=== PATIENT | female | born 1935 | race Caucasian/White ===

== ENCOUNTER → 2016-11-05 | Outpatient (CLI) | payer MEDICARE, OTHER ==
--- NOTE | 2016-11-06 09:47 | MM ---
Reason for exam: screening (asymptomatic). Last mammogram was performed 1 year ago. History: Patient is postmenopausal and history of other cancer. Family history of breast cancer in maternal cousin and premenopausal breast cancer in daughter. 2 benign excisional biopsies of the right breast. Took estrogen for 5 years. Took progesterone for 5 years. Physical Findings: A clinical breast exam by your physician is recommended on an annual basis and results should be correlated with mammographic findings. MG 3D Screening Mammo W/Cad Bilateral CC and MLO view(s) were taken. Prior study comparison: November 02, 2015, bilateral MG 3d screening mammo w/cad. October 27, 2014, bilateral MG screening mammo w CAD. The breast tissue is heterogeneously dense. This may lower the sensitivity of mammography. No significant changes when compared with prior studies. ASSESSMENT: Benign, BI-RAD 2 RECOMMENDATION: Routine screening mammogram of both breasts in 1 year.
== END | disposition home or self-care (01) ==
LOC: RADMAMWWP 09:33
PROVIDERS: ATTEND Internal Medicine
DX: Z12.31 Encounter for screening mammogram for malignant neoplasm of breast (principal)
CPT/HCPCS: 77063; G0202

== ENCOUNTER → 2017-09-18 | Outpatient (CLI) | payer MEDICARE, OTHER ==
[2017-09-18 13:34] LABS: Anion Gap 12 mmol/L; Blood Urea Nitrogen 19 mg/dL (7-17); Calcium 10.4 mg/dL (8.4-10.2); Carbon Dioxide 29 mmol/L (22-30); Chloride 103 mmol/L (98-107); Glucose 93 mg/dL (74-99); Potassium 4.9 mmol/L (3.5-5.1); Sodium 144 mmol/L (137-145)
[2017-09-18 13:48] LABS: T4, Free (Free Thyroxine) 0.92 ng/dL (0.78-2.19)
== END | disposition home or self-care (01) ==
LOC: LABWHC1 12:34
PROVIDERS: ATTEND Internal Medicine Interventional Cardiology
DX: E03.9 Hypothyroidism, unspecified (principal); R00.1 Bradycardia, unspecified
CPT/HCPCS: 36415; 80048; 83735; 84439; 84443

== ENCOUNTER → 2017-11-18 | Outpatient (CLI) | payer MEDICARE, OTHER ==
--- NOTE | 2017-11-19 14:24 | MM ---
Reason for exam: screening (asymptomatic). Last mammogram was performed 1 year ago. History: Patient is postmenopausal and history of other cancer. Family history of breast cancer in maternal cousin and premenopausal breast cancer in daughter. 2 benign excisional biopsies of the right breast. Took estrogen for 5 years. Took progesterone for 5 years. Physical Findings: A clinical breast exam by your physician is recommended on an annual basis and results should be correlated with mammographic findings. MG 3D Screening Mammo W/Cad Bilateral CC and MLO view(s) were taken. Prior study comparison: November 05, 2016, bilateral MG 3d screening mammo w/cad. November 02, 2015, bilateral MG 3d screening mammo w/cad. The breast tissue is heterogeneously dense. This may lower the sensitivity of mammography. Finding: There are typically benign calcifications in both breasts. No suspicious abnormality. No significant changes in finding since November 05, 2016 and November 02, 2015. ASSESSMENT: Benign, BI-RAD 2 RECOMMENDATION: Routine screening mammogram of both breasts in 1 year.
== END | disposition home or self-care (01) ==
LOC: RADMAMWWP 13:29
PROVIDERS: ATTEND Internal Medicine
DX: Z12.31 Encounter for screening mammogram for malignant neoplasm of breast (principal)
CPT/HCPCS: 77063; 77067

== ENCOUNTER → 2018-12-29 | Outpatient (CLI) | payer MEDICARE, OTHER ==
--- NOTE | 2018-12-29 16:43 | XR ---
EXAMINATION TYPE: XR chest 2V DATE OF EXAM: 12/29/2018 COMPARISON: Prior chest x-ray 08/06/2013 HISTORY: COPD, shortness of breath TECHNIQUE: Frontal and lateral views of the chest are obtained. FINDINGS: Bibasilar increased density is present with blunting of the costophrenic angles. There is no pneumothorax. Heart size is likely stable. The aorta is dense. Interstitium is increased. There ar e prominent lung volumes with increased AP diameter chest and retrosternal airspace. Prominence of th e pulmonary artery could be indicative of pulmonary artery hypertension. Probable osteoporotic compre ssion fracture noted in the upper lumbar spine. IMPRESSION: COPD, there may be basilar atelectasis or scarring, difficult to exclude small effusion
== END | disposition home or self-care (01) ==
LOC: CPPFTMAIN 13:56
PROVIDERS: ATTEND Internal Medicine
DX: J44.9 Chronic obstructive pulmonary disease, unspecified (principal)
CPT/HCPCS: 71046; 94060; 94726; 94729

== ENCOUNTER 2019-01-21 12:00 | Inpatient (IN) | payer MEDICARE, OTHER ==
[2019-01-21] MEDS ORDERED: ALBUTEROL NEBULIZED 2.5 MG/3 ML INHALATION STA (12:47)
[2019-01-21] MEDS ORDERED: methylPREDNISolone SOD SUCCI 125 MG/2 ML VIAL IV STA (12:47)
[2019-01-21] MEDS ORDERED: IPRATROPIUM 0.5 MG/2.5 ML NEBU INHALATION STA (12:47)
--- NOTE | 2019-01-21 12:53 | ED ---
General Adult HPI - General Chief complaint: Shortness of Breath Stated complaint: COPD Time Seen by Provider: 01/21/19 12:15 Source: patient, RN notes reviewed Mode of arrival: wheelchair Limitations: no limitations - History of Present Illness Initial comments: This is a 83-year-old female presents emergency Department complaining of difficulty breathing. Patient states it up again in June and more recently she was diagnosed as COPD and placed on an inhaler. Patient states the inhaler hasn't helped and today she was so short of breath eating sitting still she was short of breath. Patient denies any chest pain. Patient denies any cough. P atient denies any recent fever chills. Patient denies any lightheadedness dizziness or near syncopal episode. Patient denies any abdominal pain. Patient denies any palpitations. Patient denies any leg swelling or calf tenderness - Related Data Home Medications Medication Instructions Recorded Confirmed Aspirin 162 mg PO DAILY 11/05/13 01/21/19 Losartan [Cozaar] 50 mg PO DAILY 11/05/13 01/21/19 Multivitamins, Thera [Multivitamin 1 tab PO DAILY 01/21/19 01/21/19 (formulary)] Umeclidinium Brm/Vilanterol Tr 1 puff INHALATION RT-DAILY 01/21/19 01/21/19 [Anoro Ellipta 62.5-25 Mcg INH] Allergies Allergy/AdvReac Type Severity Reaction Status Date / Time No Known Allergies Allergy Verified 01/21/19 13:17 Review of Systems ROS Statement: Those systems with pertinent positive or pertinent negative responses have been documented in the HPI. ROS Other: All systems not noted in ROS Statement are negative. Past Medical History Past Medical History: COPD, Hypertension, Osteoarthritis (OA) Additional Past Medical History / Comment(s): emphysema; irreg heart rate History of Any Multi-Drug Resistant Organisms: None Reported Past Surgical History: Appendectomy, Heart Catheterization, Tonsillectomy, Tubal Ligation Additional Past Surgical History / Comment(s): rt breast lumpectomy Past Anesthesia/Blood Transfusion Reactions: No Reported Reaction Past Psychological History: Anxiety Smoking Status: Former smoker - Past Family History Sister(s) Family Medical History: Cancer General Exam - General Exam Comments Initial Comments: GENERAL: Patient is well-developed and well-nourished. Patient is nontoxic and well- hydrated and is in mild distress. ENT: Neck is soft and supple. No significant lymphadenopathy is noted. Oropharynx is clear. Moist mucous membranes. Neck has full range of motion without eliciting any pain. EYES: The sclera were anicteric and conjunctiva were pink and moist. Extraocular movements were intact and pupils were equal round and reactive to light. Eyelids were unremarkable. PULMONARY: Diminished breath sounds throughout. CARDIOVASCULAR: Patient has an irregular rate and rhythm ABDOMEN: Soft and nontender with normal bowel sounds. SKIN: Skin is clear with no lesions or rashes and otherwise unremarkable. NEUROLOGIC: Patient is alert and oriented x3. Cranial nerves II through XII are grossly intact. Motor and sensory are also intact. Normal speech, volume and content. Symmetrical smile. MUSCULOSKELETAL: Normal extremities with adequate strength and full range of motion. No lower extremity swelling or edema. No calf tenderness. LYMPHATICS: No significant lymphadenopathy is noted PSYCHIATRIC: Normal psychiatric evaluation. Limitations: no limitations Course Vital Signs 01/21/19 01/21/19 01/21/19 12:17 13:00 13:14 Temperature 98.0 F Pulse Rate 42 L 49 L 43 L Respiratory 20 Rate Blood Pressure 177/70 O2 Sat by Pulse 90 L Oximetry 01/21/19 13:22 Temperature Pulse Rate 51 L Respiratory Rate Blood Pressure O2 Sat by Pulse Oximetry Medical Decision Making - Medical Decision Making EKG shows sinus rhythm with occasional PVC at 89 bpm NM interval is 166 QRS is 82 QT interval is 412 QTC is 501. Patient's EKG shows no ST segment elevation or depression. Chest x-ray shows Computed tomography scan of the chest showed no pulmonary embolism it did show increased pleural effusions bilaterally. I gave the patient 3 breathing treatments it didn't improve her breathing but she still states she is not at her baseline. Spoke with Dr. Brian he agreed to admit the patient admitted the patient I wrote admitting orders. - Lab Data Result diagrams: 01/21/19 13:25 01/21/19 13:25 Lab Results 01/21/19 01/21/19 01/21/19 Range/Units 13:25 13:25 13:25 WBC 9.5 (3.8-10.6) k/uL RBC 4.84 (3.80-5.40) m/uL Hgb 15.3 (11.4-16.0) gm/dL Hct 47.3 H (34.0-46.0) % MCV 97.7 (80.0-100.0) fL MCH 31.5 (25.0-35.0) pg MCHC 32.3 (31.0-37.0) g/dL RDW 13.0 (11.5-15.5) % Plt Count 232 (150-450) k/uL Neutrophils % 72 % Lymphocytes % 21 % Monocytes % 5 % Eosinophils % 1 % Basophils % 0 % Neutrophils # 6.8 (1.3-7.7) k/uL Lymphocytes # 2.0 (1.0-4.8) k/uL Monocytes # 0.5 (0-1.0) k/uL Eosinophils # 0.1 (0-0.7) k/uL Basophils # 0.0 (0-0.2) k/uL PT 10.8 (9.0-12.0) sec INR 1.0 (<1.2) APTT 22.2 (22.0-30.0) sec D-Dimer 1.25 H (<0.60) mg/L FEU Sodium 138 (137-145) mmol/L Potassium 4.6 (3.5-5.1) mmol/L Chloride 105 (98-107) mmol/L Carbon Dioxide 23 (22-30) mmol/L Anion Gap 10 mmol/L BUN 21 H (7-17) mg/dL Creatinine 0.68 (0.52-1.04) mg/dL Est GFR (CKD-EPI)AfAm >90 (>60 ml/min/1.73 sqM) Est GFR (CKD-EPI)NonAf 81 (>60 ml/min/1.73 sqM) Glucose 104 H (74-99) mg/dL Calcium 9.7 (8.4-10.2) mg/dL Magnesium 1.9 (1.6-2.3) mg/dL Total Bilirubin 0.7 (0.2-1.3) mg/dL AST 55 H (14-36) U/L ALT 47 (9-52) U/L Alkaline Phosphatase 64 (38-126) U/L Troponin I (0.000-0.034) ng/mL NT-Pro-B Natriuret Pep pg/mL Total Protein 6.2 L (6.3-8.2) g/dL Albumin 4.1 (3.5-5.0) g/dL 01/21/19 01/21/19 Range/Units 13:25 13:28 WBC (3.8-10.6) k/uL RBC (3.80-5.40) m/uL Hgb (11.4-16.0) gm/dL Hct (34.0-46.0) % MCV (80.0-100.0) fL MCH (25.0-35.0) pg MCHC (31.0-37.0) g/dL RDW (11.5-15.5) % Plt Count (150-450) k/uL Neutrophils % % Lymphocytes % % Monocytes % % Eosinophils % % Basophils % % Neutrophils # (1.3-7.7) k/uL Lymphocytes # (1.0-4.8) k/uL Monocytes # (0-1.0) k/uL Eosinophils # (0-0.7) k/uL Basophils # (0-0.2) k/uL PT (9.0-12.0) sec INR (<1.2) APTT (22.0-30.0) sec D-Dimer (<0.60) mg/L FEU Sodium (137-145) mmol/L Potassium (3.5-5.1) mmol/L Chloride (98-107) mmol/L Carbon Dioxide (22-30) mmol/L Anion Gap mmol/L BUN (7-17) mg/dL Creatinine (0.52-1.04) mg/dL Est GFR (CKD-EPI)AfAm (>60 ml/min/1.73 sqM) Est GFR (CKD-EPI)NonAf (>60 ml/min/1.73 sqM) Glucose (74-99) mg/dL Calcium (8.4-10.2) mg/dL Magnesium (1.6-2.3) mg/dL Total Bilirubin (0.2-1.3) mg/dL AST (14-36) U/L ALT (9-52) U/L Alkaline Phosphatase (38-126) U/L Troponin I <0.012 (0.000-0.034) ng/mL NT-Pro-B Natriuret Pep 940 pg/mL Total Protein (6.3-8.2) g/dL Albumin (3.5-5.0) g/dL Disposition Clinical Impression: Pleural effusion, Acute exacerbation of chronic obstructive airways disease Disposition: ADMITTED IP TO THIS HOSP Referrals: Colt Fernandez MD [Primary Care Provider] - 1-2 days Time of Disposition: 16:10
[2019-01-21 13:40] LABS: Basophils % (A) 0 %; Eosinophils # (A) 0.1 k/uL (0-0.7); Eosinophils % (A) 1 %; HCT 47.3 % (34.0-46.0); HGB 15.3 gm/dL (11.4-16.0); Lymphocytes % (A) 21 %; MCH 31.5 pg (25.0-35.0); MCHC 32.3 g/dL (31.0-37.0); MCV 97.7 fL (80.0-100.0); Mean Platelet Volume 7.1; Monocytes # (A) 0.5 k/uL (0-1.0); Monocytes % (A) 5 %; Neutrophils # (A) 6.8 k/uL (1.3-7.7); Neutrophils % (A) 72 %; Platelet Count 232 k/uL (150-450); RBC 4.84 m/uL (3.80-5.40); WBC 9.5 k/uL (3.8-10.6)
--- NOTE | 2019-01-21 13:50 | XR ---
EXAMINATION TYPE: XR chest 2V DATE OF EXAM: 01/21/2019 COMPARISON: Chest x-ray December 29, 2018. HISTORY: Increasing shortness of breath, history of COPD TECHNIQUE: Frontal and lateral views of the chest are obtained. FINDINGS: There are increasing bibasilar opacities. Upper lungs remain clear without pneumothorax. T he cardiac silhouette size is more prominent perhaps mildly enlarged on current study. Exaggerated th oracic kyphosis is present. IMPRESSION: Probable CHF exacerbation and there is increasing prominence to the cardiac silhouette w ith small to moderate bilateral pleural effusions increased in size from prior and suggestion of mild central vascular congestion. Associated bibasilar atelectasis and/or infiltrate is noted.
[2019-01-21 13:51] LABS: ALT 47 U/L (9-52); AST 55 U/L (14-36); African American GFR (CKD) >90 (>60 ml/min/1.73 sqM); Albumin 4.1 g/dL (3.5-5.0); Alkaline Phosphatase 64 U/L (38-126); Anion Gap 10 mmol/L; Blood Urea Nitrogen 21 mg/dL (7-17); Calcium 9.7 mg/dL (8.4-10.2); Carbon Dioxide 23 mmol/L (22-30); Chloride 105 mmol/L (98-107); Glucose 104 mg/dL (74-99); Magnesium 1.9 mg/dL (1.6-2.3); Potassium 4.6 mmol/L (3.5-5.1); Sodium 138 mmol/L (137-145); Total Bilirubin 0.7 mg/dL (0.2-1.3); Total Protein 6.2 g/dL (6.3-8.2)
[2019-01-21 14:04] LABS: Partial Thromboplastin Time 22.2 sec (22.0-30.0); Prothrombin Time 10.8 sec (9.0-12.0)
[2019-01-21 14:17] LABS: D-Dimer 1.25 mg/L FEU (<0.60)
--- NOTE | 2019-01-21 15:27 | CT ---
EXAMINATION TYPE: CT chest angio for PE DATE OF EXAM: 01/21/2019 COMPARISON: 06/20/2015 HISTORY: Shortness of breath. CT DLP: 186.4 mGycm Automated exposure control for dose reduction was used. CONTRAST: CT Chest for pulmonary embolism performed with with IV Contrast, patient injected with 100 mL of Isov ue 370. FINDINGS: LUNGS: There is bilateral consolidation and pleural effusion. No pneumothorax. Diffuse emphysematous changes noted. MEDIASTINUM: There is satisfactory enhancement of the pulmonary artery and its branches, there is no CT evidence for pulmonary embolism. There are no greater than 1 cm hilar or mediastinal lymph nodes. Heart is enlarged and there is a small pericardial effusion. Coronary artery calcification noted. At herosclerotic change of the aorta.. OTHER: Hypertrophic and degenerative changes spine. Chronic appearing compression deformity of the t horacolumbar junction. IMPRESSION: 1. Bilateral consolidation and pleural effusion. Cardiomegaly and coronary artery calcification are s een. 2. No diagnostic evidence of pulmonary embolism.
[2019-01-21] MEDS ORDERED: IPRATROPIUM-ALBUTEROL 3 ML NEB INHALATION PRN (16:11)
[2019-01-21] MEDS ORDERED: INSULIN ASPART (NovoLOG) 100 UNIT/ML VIAL SQ PRN (18:30)
[2019-01-21] MEDS ORDERED: AZITHROMYCIN 500 MG TAB PO STA (18:37)
[2019-01-21] MEDS: methylPREDNISolone SOD SUCCI 125 MG/2 ML VIAL IV SCH ×2 (18:48→23:36)
--- NOTE | 2019-01-21 18:48 | P.HPIM ---
History of Present Illness H&P Date: 01/21/19 Chief Complaint: Shortness of breath The patient is a 83-year-old female with a past medical history of essential hypertension, former smoker with a greater than [id number] history who was recently diagnosed with COPD who presents to the ER via private vehicle with chief complaint of shortness of breath. Apparently the patient has been having progressive worsening dyspnea on exertion over the last 7 months and has been having episodes of nonproductive cough, the patient was seen by her PCP Dr. Fernandez a couple weeks ago and sent for a pulmonary function test was given a trial of Ellipta. The patient denies being given any rescue inhalers. Patient denies any chest pain, lower extremity swelling she reported significant wheezes prior to presentation. She reports that her trouble breathing is worse with exertion at 20 feet. The patient at her baseline ambulates on her own and lives at [facility]. Review of records indicates patient had a PFT 12/29/18 that showed severe obstructive airways disease and severe diffusion defect In the ER the patient had a comprehensive workup, her CBC was unremarkable her d-dimer is elevated at 1.25, NT proBNP was 940. Chest x-ray suggested probable CHF exacerbation with small to moderate bilateral pleural effusions and suggestion of mild central vascular congestion. CTA of the chest indicated bilateral consolidation and pleural effusion and cardiomegaly and coronary artery calcifications no evidence of PE. EKG shows sinus mechanism with occasional PVC without any suggestion of any acute ischemia. Apparently the patient was noted to be hypoxic at around 88- 89% on room air, she was placed on supplemental oxygen, given a loading dose of Solu-Medrol and updraft breathing treatments and recommended for admission for COPD exacerbation Review of Systems Pertinent positives per HPI all other review of systems otherwise negative Past Medical History Past Medical History: COPD, Hypertension, Osteoarthritis (OA) Additional Past Medical History / Comment(s): emphysema; irreg heart rate History of Any Multi-Drug Resistant Organisms: None Reported Past Surgical History: Appendectomy, Heart Catheterization, Tonsillectomy, Tubal Ligation Additional Past Surgical History / Comment(s): rt breast lumpectomy Past Anesthesia/Blood Transfusion Reactions: No Reported Reaction Past Psychological History: Anxiety Smoking Status: Former smoker Past Alcohol Use History: Occasional Past Drug Use History: None Reported - Past Family History Sister(s) Family Medical History: Cancer Medications and Allergies Home Medications Medication Instructions Recorded Confirmed Type Aspirin 162 mg PO DAILY 11/05/13 01/21/19 History Losartan [Cozaar] 50 mg PO DAILY 11/05/13 01/21/19 History Multivitamins, Thera [Multivitamin 1 tab PO DAILY 01/21/19 01/21/19 History (formulary)] Umeclidinium Brm/Vilanterol Tr 1 puff INHALATION RT-DAILY 01/21/19 01/21/19 History [Anoro Ellipta 62.5-25 Mcg INH] Allergies Allergy/AdvReac Type Severity Reaction Status Date / Time No Known Allergies Allergy Verified 01/21/19 13:17 Physical Exam Vitals: Vital Signs Temp Pulse Resp BP Pulse Ox 01/21/19 17:27 60 18 128/83 91 L 01/21/19 17:00 51 L 18 91 L 01/21/19 13:22 51 L 01/21/19 13:14 43 L 01/21/19 13:00 49 L 01/21/19 12:17 98.0 F 42 L 20 177/70 90 L Intake and Output 01/21/19 01/21/19 01/21/19 06:59 14:59 22:59 Other: Weight 52.163 kg 50.9 kg Constitutional: No acute distress, conversant, pleasant Eyes: Anicteric sclerae, moist conjunctiva, no lid-lag, PERRLA ENMT: NC/AT,Oropharynx clear, no erythema, exudates Neck:Supple, FROM, no masses, or JVD, No carotid bruits; No thyromegaly Lungs: Diminished in the bases bilaterally, Normal respiratory effort, no accessory muscle use on 3 L nasal cannula Cardiovascular: Heart regular in rate and rhythm, No murmurs, gallops, or rubs no peripheral edema Abdominal: Soft Nontender, nom distended, no guarding, no rebound or rigidity, Normoactive bowel sounds No hepatomegaly, No splenomegaly, No palpable mass No abdominal wall hernia noted Skin: Normal temperature, tone, texture, turgor, No induration No subcutaneous nodules, No rash, lesions, No ulcers Extremities:No digital cyanosis No clubbing, Pedal pulses intact and symmetrical Radial pulses intact and symmetrical Normal gait and station, No calf tenderness Psychiatric: Alert and oriented to person, place and time, Appropriate affect Intact judgement Neuro: Muscles Strength 5/5 in all 4 extremities, Sensation to light touch grossly present throughout, Cranial nerves II-XII grossly intact. No focal sensory deficits Results CBC & Chem 7: 01/21/19 13:25 01/21/19 13:25 Labs: Abnormal Lab Results - Last 24 Hours (Table) 01/21/19 01/21/19 01/21/19 Range/Units 13:25 13:25 13:25 Hct 47.3 H (34.0-46.0) % D-Dimer 1.25 H (<0.60) mg/L FEU BUN 21 H (7-17) mg/dL Glucose 104 H (74-99) mg/dL AST 55 H (14-36) U/L Total Protein 6.2 L (6.3-8.2) g/dL Thrombosis Risk Factor Assmnt - Choose All That Apply Any of the Below Risk Factors Present?: Yes Each Factor Represents 1 point: Abnormal pulmonary function (COPD) Other Risk Factors: Yes Each Risk Factor Represents 3 Points: Age 75 years or older Thrombosis Risk Factor Assessment Total Risk Factor Score: 4 Thrombosis Risk Factor Assessment Level: Moderate Risk Assessment and Plan (1) Acute respiratory failure with hypoxia Current Visit: Yes Status: Acute Code(s): J96.01 - ACUTE RESPIRATORY FAILURE WITH HYPOXIA SNOMED Code(s): 40808268 (2) Acute exacerbation of chronic obstructive airways disease Current Visit: Yes Status: Acute Code(s): J44.1 - CHRONIC OBSTRUCTIVE PULMONARY DISEASE W (ACUTE) EXACERBATION SNOMED Code(s): 316097154 (3) Dyspnea on exertion Current Visit: Yes Status: Acute Code(s): R06.09 - OTHER FORMS OF DYSPNEA SNOMED Code(s): 72452388 (4) Essential hypertension Current Visit: Yes Status: Acute Code(s): I10 - ESSENTIAL (PRIMARY) HYPERTENSION SNOMED Code(s): 57715502 (5) Pleural effusion Current Visit: Yes Status: Acute Code(s): J90 - PLEURAL EFFUSION, NOT ELSEWHERE CLASSIFIED SNOMED Code(s): 49205999 Plan: The patient is admitted anticipated greater than 2 midnight stay with acute respiratory failure with hypoxia secondary to likely acute COPD exacerbation versus possible acute CHF exacerbation, the patient is continued on supplemental oxygen she has good saturations on 3 L, continue with systemic steroids with Solu-Medrol, inhaled Perforomist, scheduled and prn bronchodilator DuoNeb breathing treatments initiate antibiotics regimen with azithromycin and Rocephin. Plans for consultation to pulmonary will order echocardiogram and start her on IV Lasix that she does have some pleural effusions and bilateral consolidation. We'll continue to monitor clinical course closely CODE STATUS: Full code Discussed plan of care with: Patient her family Surrogate decision-maker: Daughter Anticipated discharge: 1-[address]: [facility] Prophylaxis: Heparin and Protonix Time with Patient: Greater than 30
[2019-01-21] MEDS: FORMOTEROL FUMARATE 20 MCG/2 ML NEBU INHALATION SCH (19:12)
[2019-01-21] MEDS: IPRATROPIUM-ALBUTEROL 3 ML NEB INHALATION SCH (19:12)
[2019-01-21] MEDS: FUROSEMIDE 10 MG/ML 4 ML VIAL IV SCH (21:01)
[2019-01-21] MEDS: HEPARIN SODIUM,PORCINE 5,000 UNIT/ML 1 ML VIAL SQ SCH (21:02)
--- NOTE | 2019-01-22 00:32 | CONS ---
CONSULTATION PULMONARY/CRITICAL CARE CONSULTATION: DATE OF SERVICE: 01/21/2019 HISTORY OF PRESENT ILLNESS: This is an 83-year-old female who presented to the emergency room today and saw Dr. Samano I believe. She presented with complaints of difficulty breathing. It started in June. She apparently was told by her primary doctor, Dr. Fernandez, that she had COPD. She was placed on inhaler, but that has not really helped at all. Her complaints include primarily shortness of breath on exertion. She sometimes is short of breath at rest as well. She denies any chest pain or chest discomfort. In the past, she has had a bit of a cough and she was spitting up some phlegm, but now is not having any of that. She does have wheezing. No fever or chills. No chest pain or chest discomfort. No nausea, vomiting or diarrhea. No genitourinary complaints. She is already feeling better. Dr. Fernandez put her on an inhaler, but the inhaler did not work. She does not remember the name of it. I believe it was Anoro, 1 puff a day. This is a combination of a long-acting muscarinic antagonist and a long-acting beta agonists for COPD. She has never seen a lung doctor. She apparently did have a breathing test. Anyway, she is feeling a bit better. She is on oxygen therapy. CURRENT MEDICATIONS: Include aspirin, losartan, multivitamin, the inhaler, Anoro. ALLERGIES: Denied. MEDICAL HISTORY: Scant. She has apparently "COPD", hypertension and DJD. She also apparently had an irregular heartbeat. She did mention that she did see one of the cardiologists a couple years back and continues to see him every 6 months or so. She apparently had a catheterization a couple years back. It was apparently normal. SURGICAL HISTORY: Surgical history includes appendectomy, heart catheterization, tonsillectomy and tubal ligation. She also had a right breast lumpectomy. SOCIAL HISTORY: Positive for many years of tobacco use. She probably smoked more than 40 years at a pack a day. She currently does not smoke. FAMILY HISTORY: Significant for a sister with cancer. She states her mother and father are relatively healthy. REVIEW OF SYSTEMS: CONSTITUTIONAL negative. NEUROLOGIC negative. HEENT negative. CARDIOVASCULAR negative. PULMONARY: Shortness of breath, wheezing, occasional cough and phlegm production. GI negative. negative. RHEUMATOLOGIC negative. IMMUNOLOGIC negative. ENDOCRINOLOGIC negative. DERMATOLOGIC negative. PHYSICAL EXAMINATION: VITAL SIGNS: Current vital signs are reviewed. Temperature is 97.8. Heart rate 68, respiratory rate 18, blood pressure 144/70. Mean 94. Saturations on room air, 89% on 2 L. She is 93-94 percent. GENERAL: She appears in no acute distress. She has no conversational dyspnea, audible wheezing, use of accessory muscles or anything like that. Again, she looks very comfortable. HEENT examination is grossly unremarkable. NECK: Supple. Full range of motion. No adenopathy. Neck veins are flat. CARDIOVASCULAR examination reveals regular rhythm and rate. Heart rate in mid 60s. No murmur. S1, S2 normal. LUNGS: Reveal mostly clear breath sounds. A few scattered rhonchi noted. No wheezes or crackles today. ABDOMEN: Soft. Bowel sounds are heard. EXTREMITIES are intact. No cyanosis, clubbing, or edema. Skin with graft without rash. NEUROLOGIC examination is brief but nonfocal. LABORATORY DATA: White count 9.5, hemoglobin 15.3, hematocrit 47.3, platelet count 332,000. PT/INR normal. PTT normal. D-dimer 1.25. Sodium, potassium, chloride, CO2 all normal. Anion gap is 10. BUN and creatinine were 21 and 0.68 respectively. N terminal proBNP was 940. Troponin was less than 0.012. She had a chest x-ray on admission. The chest x-ray shows in my opinion, some mild fluid overload. Bilateral effusions. Some mild cephalization. There may be some atelectasis and/or infiltrate at the right lung base. A CT angiogram was done. It showed no evidence of pulmonary embolism. It did show bilateral consolidations and pleural effusion. There was cardiomegaly and coronary artery calcification. Medications are reviewed. She is currently on aspirin, Zithromax, Rocephin, Perforomist, Lasix, heparin, insulin, DuoNeb, losartan, Solu-Medrol, multivitamins and Protonix. ASSESSMENT: 1. Shortness of breath, which may relate to underlying chronic obstructive pulmonary disease exacerbation and/or could be complicated by pneumonia bilaterally. In addition, there may be a component of fluid overload. 2. History of "COPD", recently diagnosed. She did have pulmonary function testing. 3. History of hypertension. 4. History of degenerative joint disease. 5. History of breast cancer, status post right-sided lumpectomy. 6. Previous history of heavy tobacco use. 7. Heart catheterization some 3 to 4 years ago, which apparently was okay. PLAN: I am going to do ultrasounds of the posterior chest to rule out pleural effusions. The patient is on appropriate medications. I will add Pulmicort. She will need follow up with one of the pulmonologists. I will also see if we could find the results of her recent PFTs. Additional recommendations and suggestions are forthcoming. Prognosis is guarded. PFT's are consistent with emphysema. FEV1 % is 54. DLCO/VA is low. MMODL / IJN: [id number] / DUANE
[2019-01-22] MEDS: methylPREDNISolone SOD SUCCI 125 MG/2 ML VIAL IV SCH ×4 (06:49→23:04)
[2019-01-22] MEDS: PANTOPRAZOLE 40 MG TABLET PO SCH (06:50)
[2019-01-22] MEDS: FORMOTEROL FUMARATE 20 MCG/2 ML NEBU INHALATION SCH ×2 (08:00→19:44)
[2019-01-22] MEDS: IPRATROPIUM-ALBUTEROL 3 ML NEB INHALATION SCH ×4 (08:00→19:44)
[2019-01-22] MEDS: BUDESONIDE 1 MG/2 ML NEBU INHALATION SCH ×2 (08:01→19:44)
--- NOTE | 2019-01-22 08:29 | US ---
EXAMINATION TYPE: US chest DATE OF EXAM: 01/21/2019 COMPARISON: CT CLINICAL HISTORY: pleural effusion. TECHNIQUE: Targeted ultrasound of the posterior lower bilateral hemithoraces EXAM MEASUREMENTS: Right Pleural Effusion pocket size: 11.0 cm Right skin surface to fluid distance: 1.2 cm Lung seen at 1.5 cm, the fluid has internal echoes. Left Pleural Effusion pocket size: 6.9 cm Left skin surface to fluid distance: 1.1 cm Lung seen at 2.2 cm,the fluid has internal echoes. Right side marked for possible thoracentesis outside the dept. Left side marked for possible thoracentesis outside the dept. Pulmonologists are able to review the images in the patient?s EMR. IMPRESSIONS: Bilateral small pleural effusions with maximum depth of the fluid pockets measured above and pleural surface to the most superficial aspect of the atelectasis also measured above.
[2019-01-22] MEDS: MULTIVITAMINS, THERA 1 EACH TAB PO SCH (09:49)
[2019-01-22] MEDS: HEPARIN SODIUM,PORCINE 5,000 UNIT/ML 1 ML VIAL SQ SCH ×2 (09:49→20:08)
[2019-01-22] MEDS: FUROSEMIDE 10 MG/ML 4 ML VIAL IV SCH ×2 (09:49→20:09)
[2019-01-22] MEDS: ASPIRIN 81 MG PO SCH (09:49)
[2019-01-22] MEDS: LOSARTAN 50 MG TAB PO SCH (09:49)
--- NOTE | 2019-01-22 11:36 | P.PN ---
Subjective Progress Note Date: 01/22/19 The patient seen and examined at bedside, she is been up and ambulatory and was admitted to the restroom on room air denies any significant dyspnea reports that her difficulty breathing is improved. Recently had a chest ultrasound showing right greater than left pleural effusion at 11 versus 6.9 centimeter pocket size respectively. Echocardiogram has been done and results are pending Objective - Vital Signs Vital signs: Vital Signs Temp 97.9 F 01/22/19 08:00 Pulse 72 01/22/19 11:23 Resp 18 01/22/19 04:00 BP 161/77 01/22/19 08:00 Pulse Ox 93 L 01/22/19 08:00 Intake & Output 01/21/19 01/22/19 01/22/19 18:59 06:59 18:59 Intake Total 240 120 Output Total 1925 Balance 240 -1925 120 Weight 50.9 kg 49.5 kg Intake: Oral 240 120 Output: Urine 1925 Other: Voiding Method Toilet # Voids 3 1 - Exam Constitutional: No acute distress, conversant, pleasant Eyes: Anicteric sclerae, moist conjunctiva, no lid-lag, PERRLA ENMT: NC/AT,Oropharynx clear, no erythema, exudates Neck:Supple, FROM, no masses, or JVD, No carotid bruits; No thyromegaly Lungs: Clear to auscultation, Clear to percussion, Normal respiratory effort, no accessory muscle use Cardiovascular: Heart regular in rate and rhythm, No murmurs, gallops, or rubs no peripheral edema Abdominal: Soft Nontender, nom distended, no guarding, no rebound or rigidity, Normoactive bowel sounds No hepatomegaly, No splenomegaly, No palpable mass No abdominal wall hernia noted Skin: Normal temperature, tone, texture, turgor, No induration No subcutaneous nodules, No rash, lesions, No ulcers Extremities:No digital cyanosis No clubbing, Pedal pulses intact and symmetrical Radial pulses intact and symmetrical Normal gait and station, No calf tenderness Psychiatric: Alert and oriented to person, place and time, Appropriate affect Intact judgement Neuro: Muscles Strength 5/5 in all 4 extremities, Sensation to light touch grossly present throughout, Cranial nerves II-XII grossly intact. No focal sensory deficits - Labs CBC & Chem 7: 01/21/19 13:25 01/21/19 13:25 Labs: Abnormal Lab Results - Last 24 Hours (Table) 01/21/19 01/21/19 01/21/19 Range/Units 13:25 13:25 13:25 Hct 47.3 H (34.0-46.0) % D-Dimer 1.25 H (<0.60) mg/L FEU BUN 21 H (7-17) mg/dL Glucose 104 H (74-99) mg/dL AST 55 H (14-36) U/L Total Protein 6.2 L (6.3-8.2) g/dL Assessment and Plan (1) Acute respiratory failure with hypoxia Narrative/Plan: * Likely multifactorial COPD exacerbation superimposed on possible underlying pneumonia and bilateral right greater than left pleural effusion possible CHF * Patient doing well off oxygen and has been ambulatory to the restroom * Continue current management * Pulmonary consulted appreciated recommendations Current Visit: Yes Status: Acute Code(s): J96.01 - ACUTE RESPIRATORY FAILURE WITH HYPOXIA SNOMED Code(s): 41201106 (2) Acute exacerbation of chronic obstructive airways disease Narrative/Plan: * The patient doing well without any significant wheezes * We'll switch from IV steroids to oral prednisone in the a.m. * Continue bronchodilator DuoNeb breathing treatments Q4/PRN * Continue current antibiotic regimen with Rocephin and azithromycin Current Visit: Yes Status: Acute Code(s): J44.1 - CHRONIC OBSTRUCTIVE PULMONARY DISEASE W (ACUTE) EXACERBATION SNOMED Code(s): 379459033 (3) CAP (community acquired pneumonia) Narrative/Plan: * No signs of sepsis continue antibiotic regimen above Current Visit: Yes Status: Acute Code(s): J18.9 - PNEUMONIA, UNSPECIFIED ORGANISM SNOMED Code(s): 794599948 (4) Dyspnea on exertion Narrative/Plan: * As above * echocardiogram results pending * Current Visit: Yes Status: Acute Code(s): R06.09 - OTHER FORMS OF DYSPNEA SNOMED Code(s): 65322641 (5) Essential hypertension Narrative/Plan: * Blood pressure stable on home regimen continue current management Current Visit: Yes Status: Acute Code(s): I10 - ESSENTIAL (PRIMARY) HYPERTENSION SNOMED Code(s): 07353437 (6) Pleural effusion Narrative/Plan: * Continue diuresis for now * Pulmonary following chest ultrasound performed * Noted right greater than left fluid pocket 11 cm versus 6 cm * Possible thoracentesis later today but will defer to pulmonary Current Visit: Yes Status: Acute Code(s): J90 - PLEURAL EFFUSION, NOT ELSEWHERE CLASSIFIED SNOMED Code(s): 46609317 Plan: * Patient doing well and feels much better today * Appreciate pulmonary recommendations we'll follow-up echocardiogram, patient to have possible thoracentesis today * Anticipated discharge tomorrow
[2019-01-22 11:59] LABS: Glucose,Whole Blood 148 mg/dL (75-99)
[2019-01-22] MEDS: AZITHROMYCIN 250 MG TAB PO SCH (12:44)
[2019-01-22 13:45] LABS: Hemoglobin A1C 6.4 % (4.0-6.0)
--- NOTE | 2019-01-22 16:04 | PN ---
PROGRESS NOTE DATE OF SERVICE: January 22, 2019 This is an 83-year-old female who presented to the emergency room with complaints of shortness of breath. She apparently was diagnosed by her primary care physician, Dr. Fernandez with having emphysema. I actually read her PFT. She does have moderately severe emphysema. FEV1 was 54% predicted. Her diffusing capacity for alveolar volume was low. She was a heavy smoker in the past. In addition, the patient had a chest x-ray which showed bibasilar infiltrates, atelectasis or effusion. Ultrasound was ordered. She is currently feeling better. She states that her breathing is improved. She denies any chest pain or chest discomfort. No cough. No wheezing. No phlegm production. No fever, chills. No nausea, vomiting or diarrhea. All-in-all, she is doing much better. Current vital signs are temperature 97.9, heart rate 84, respiratory rate 16, blood pressure 161/77, mean 100. 2 L saturation between 93 and 95%. She appears in no acute distress. No respiratory distress. No audible wheezing. No use of accessory muscles. HEENT examination is grossly unremarkable. Mucous membranes are moist. There are no oral lesions. Neck is supple. Full range of motion. No lymphadenopathy, thyromegaly. CARDIOVASCULAR examination reveals regular rhythm and rate. Heart sounds are distant. S1, S2 normal. LUNGS: Reveal diminished breath sounds at the bases. Coarse rhonchi throughout. No wheezes. Breath sounds are equal. ABDOMEN soft. Bowel sounds are heard. EXTREMITIES are intact. No cyanosis, clubbing or edema. SKIN: is without rash. NEUROLOGIC examination is brief but nonfocal. Chest ultrasound that I ordered yesterday shows a right-sided pleural effusion pocket of 11 cm and a left pleural effusion pocket about 6.9 cm. Both posterior chest are marked. White count 9.5, hemoglobin 15.3, hematocrit 47.3, platelet count 332,000. Sodium and potassium normal. Chloride is normal. PT normal. PTT normal. D-dimer 1.25. Sodium, potassium, chloride, CO2 all normal. Anion gap is 10. BUN and creatinine were 21 and 0.68. Troponin is less than 0.012. N terminal proBNP is 940. Chest x-ray and CT scan were reviewed yesterday. Microbiology is currently pending or negative. Medications are reviewed. LAB DATA: Reviewed. Everything that has been done has been done yesterday. X-rays were reviewed. Ultrasound reveals evidence of bilateral effusions as mentioned above. It is bigger on the right than on the left. Medications are reviewed. She is on all the appropriate medications including DuoNeb, Pulmicort, fomoterol and steroids and antibiotics. ASSESSMENT: 1. Chronic obstructive pulmonary disease exacerbation. 2. Rule out congestive heart failure. 3. History of chronic obstructive pulmonary disease. 4. History of gastroesophageal reflux disease. 5. Hypertension. 6. History of degenerative joint disease. 7. History of breast cancer, status post right sided mastectomy. 8. Previous heavy tobacco use. 9. Heart catheterization from three or four years ago, which apparently was reported as normal. 10. Bilateral pleural effusion PLAN: The patients ultrasound will be checked. Additional recommendations and suggestions are forthcoming. We will continue to follow. Prognosis is guarded. We will repeat a chest x-ray in the morning. If there is significant fluid, a thoracentesis will be done MMLORENZO / KANAN: [id number] / MTDOlamide
--- NOTE | 2019-01-22 16:28 | US ---
EXAMINATION TYPE: US chest DATE OF EXAM: 01/22/2019 COMPARISON: US and CTA chest from yesterday. CLINICAL HISTORY: Markings for thoracentesis by pulmonary staff. TECHNIQUE: Targeted ultrasound of the posterior lower right hemithorax EXAM MEASUREMENTS: Ultrasound was called to image as double cutter was having difficulty drawing off fluid. Dr Wilkins was present for imaging and ultrasound was used to show the echoes/debris within fluid. Pulmonologists are able to review the images in the patient?s EMR. IMPRESSIONS: Single image obtained after attempted thoracentesis shows no simple fluid collection or effusion. There is change from recent CT and ultrasound. Follow-up advised.
--- NOTE | 2019-01-22 16:30 | XR ---
EXAMINATION TYPE: XR chest 1V portable DATE OF EXAM: 01/22/2019 CLINICAL HISTORY: Difficulty breathing and pleural effusion progress study. Attempted right-sided th oracentesis TECHNIQUE: Single AP portable upright view of the chest is obtained. COMPARISON: Chest x-ray and CT chest from one day earlier FINDINGS: There is new moderate to borderline large right-sided pneumothorax after attempted thorace ntesis. No new mediastinal shift. Persistent small to moderate bilateral pleural fluid collections. Chronic emphysematous change with bibasilar atelectasis and/or infiltrate. Cardiac silhouette size is stable and upper limits of normal with atherosclerotic aorta. Osseous structures are intact. IMPRESSION: New moderate to large right-sided pneumothorax after attempted thoracentesis. Results communicated to patient's nurse via telephone at time of dictation. Pulmonary critical care neto ynug is actively treating with placing chest tube at time of phone call.
--- NOTE | 2019-01-22 17:03 | XR ---
EXAMINATION TYPE: XR chest 1V portable DATE OF EXAM: 01/22/2019 COMPARISON: Today HISTORY: Pneumothorax follow-up TECHNIQUE: Single frontal view of the chest is obtained. FINDINGS: There is blunting of both costophrenic angles. There is right chest tube in the right mid lung field in good position. I see no pneumothorax. There is subcutaneous emphysema on the right ches t wall. IMPRESSION: Bilateral pleural effusions. Bilateral basilar pulmonary infiltrates. There is clearing of the large right pneumothorax compared to exam one hour ago.
[2019-01-22 17:18] LABS: Glucose,Whole Blood 139 mg/dL (75-99)
[2019-01-22] MEDS: HYDROcodone/APAP 5-325MG 1 EACH TAB PO PRN (17:49)
--- NOTE | 2019-01-22 19:04 | ECHOF ---
Referral Reason:dyspnea MEASUREMENTS -------- HEIGHT: 157.5 cm WEIGHT: 49.4 kg BP: 138/76 RVIDd: 1.9 cm (< 3.3) IVSd: 1.2 cm (0.6 - 1.1) LVIDd: 3.6 cm (3.9 - 5.3) LVPWd: 1.2 cm (0.6 - 1.1) LAESV Index (A-L): 41.72 ml/m Ao Diam: 3.2 cm (2.0 - 3.7) AV Cusp: 1.7 cm (1.5 - 2.6) LA Diam: 2.2 cm (2.7 - 3.8) AR PHT: 389 ms RAP: 5.00 mmHg RVSP: 50.62 mmHg FINDINGS -------- Atrial fibrillation. This was a technically good study. The left ventricular size is normal. There is mild concentric left ventricular hypertrophy. Overa ll left ventricular systolic function is normal with, an EF between 55 - 60 %. The right ventricle is normal in size. LA is severely dilated >40 ml/m2 The right atrial size is normal. The aortic valve is trileaflet and appears structurally normal. There is mild aortic regurgitation. Moderate mitral regurgitation is present. There is mild mitral valve prolapse. Irby-la-jiobvmao tricuspid regurgitation present. There is moderate pulmonary hypertension. The r ight ventricular systolic pressure, as measured by Doppler, is 50.62mmHg. There is no pulmonic regurgitation present. The aortic root size is normal. Normal inferior vena cava with normal inspiratory collapse consistent with estimated right atrial pre ssure of 5 mmHg. There is a trivial pericardial effusion present. Large Pleural Effusion. CONCLUSIONS -------- 1. Atrial fibrillation. 2. This was a technically good study. 3. The left ventricular size is normal. 4. There is mild concentric left ventricular hypertrophy. 5. Overall left ventricular systolic function is normal with, an EF between 55 - 60 %. 6. The right ventricle is normal in size. 7. LA is severely dilated >40 ml/m2 8. The right atrial size is normal. 9. The aortic valve is trileaflet and appears structurally normal. 10. There is mild aortic regurgitation. 11. Moderate mitral regurgitation is present. 12. There is mild mitral valve prolapse. 13. Ytvu-jo-ozvtosij tricuspid regurgitation present. 14. There is moderate pulmonary hypertension. 15. The right ventricular systolic pressure, as measured by Doppler, is 50.62mmHg. 16. There is no pulmonic regurgitation present. 17. The aortic root size is normal. 18. Normal inferior vena cava with normal inspiratory collapse consistent with estimated right atrial pressure of 5 mmHg. 19. There is a trivial pericardial effusion present. 20. Large Pleural Effusion. [employer] SUPERVISOR: Astrid Hernandez RDCS
[2019-01-22 20:58] LABS: Glucose,Whole Blood 129 mg/dL (75-99)
[2019-01-22 21:15] LABS: Appearance,BF Cloudy; Color,BF Yellow
[2019-01-22 21:16] LABS: Nucleated Cells, Body Fluid 2540 /uL; RBC, Body Fluid 9360 /uL
[2019-01-22 21:37] LABS: Mononuclear WBC,Body Fluid 88 %; Polynuclear WBC,Body Fluid 12 %; Total Cells Counted,Body Fluid 100
[2019-01-23] MEDS: HYDROcodone/APAP 5-325MG 1 EACH TAB PO PRN ×3 (00:39→21:56)
--- NOTE | 2019-01-23 02:31 | PCN ---
PROCEDURE NOTE PROCEDURE PERFORMED: Right thoracentesis. PREOP DIAGNOSIS: Right pleural effusion. POSTOP DIAGNOSIS: Right pleural effusion. OPERATORS: Dr. Wilkins and Dr. Ozuna. INDICATION: Pleural effusion. A time-out was completed verifying correct patient, procedure, site, positioning , and implant (s) or special equipment if applicable. Ultrasound guidance was not used and appropriate fluid pocket was identified and marked. Patient was positioned, prepped and draped in usual sterile fashion. Lidocaine was used to anesthetize the area. A Thoracentesis catheter was introduced into the pleural space and fluid was removed. Blood loss was none. A chest x-ray was ordered to evaluate for pneumothorax. Total Fluid Removed 100 cc Color of Fluid brown Fluid was sent for appropriate laboratory tests. Patient tolerated the procedure well and there were no complications. The posterior chest was not marked by ultrasound. Roughly 100 mL of fluid was removed from the right pleural space. There was no immediate complication. After the procedure, the patient did complain of shortness of breath. A stat chest x-ray was ordered. The fluid will be sent for analysis. Additional recommendations and suggestions are forthcoming. There was informed consent and universal timeout. MMODL / IJN: [id number] / MTDD
--- NOTE | 2019-01-23 02:46 | OP ---
OPERATIVE REPORT PROCEDURE PERFORMED: Right chest tube. PREOP DIAGNOSIS: Right pneumothorax. POSTOP DIAGNOSIS: Right pneumothorax. OPERATORS: Dr. Wilkins and Dr. Ozuna There was informed consent and universal timeout. After the area on the right chest was cleansed with chlorhexidine and draped, the area where the chest tube was going to be inserted was anesthetized. This was the area between the anterior and mid axillary line in the 5th intercostal space. The small incision was made parallel to the rib. Forceps were used to dissect the tube to connect the tissue into the pleural space. A whoosh of air noted once entering the pleural space. A #24-Bangl[place]hi chest tube was placed. There was no immediate complication. A chest tube was sutured in place. Sterile dressing was applied. The Pleur-evac was connected to the chest tube. The Pleur-evac was connected to suction. The chest x-ray was noted afterwards. There was no immediate complications. Once the chest tube was in, the patient felt immediately better. MMODL / IJN: [id number] / [facility]
[2019-01-23 06:13] LABS: Glucose,Whole Blood 139 mg/dL (75-99)
[2019-01-23] MEDS: PANTOPRAZOLE 40 MG TABLET PO SCH (06:29)
[2019-01-23] MEDS: methylPREDNISolone SOD SUCCI 125 MG/2 ML VIAL IV SCH ×4 (06:29→23:32)
--- NOTE | 2019-01-23 07:50 | XR ---
EXAMINATION TYPE: XR chest 1V portable DATE OF EXAM: 01/23/2019 COMPARISON: 01/22/2019 HISTORY: Chest tube insertion TECHNIQUE: Single frontal view of the chest is obtained. FINDINGS: Bilateral consolidation and pleural effusion. Subcutaneous emphysema noted right. Heart si ze is stable. Underlying COPD suspected. IMPRESSION: 1. Stable bilateral infiltrate and pleural effusion with no sizable pneumothorax. Diffuse subcutaneou s emphysema in the right stable.
[2019-01-23] MEDS: FORMOTEROL FUMARATE 20 MCG/2 ML NEBU INHALATION SCH ×2 (08:11→20:50)
[2019-01-23] MEDS: IPRATROPIUM-ALBUTEROL 3 ML NEB INHALATION SCH ×4 (08:11→20:50)
[2019-01-23] MEDS: BUDESONIDE 1 MG/2 ML NEBU INHALATION SCH ×2 (08:12→20:50)
[2019-01-23] MEDS: HEPARIN SODIUM,PORCINE 5,000 UNIT/ML 1 ML VIAL SQ SCH ×2 (09:14→20:17)
[2019-01-23] MEDS: ASPIRIN 81 MG PO SCH (09:14)
[2019-01-23] MEDS: MULTIVITAMINS, THERA 1 EACH TAB PO SCH (09:14)
[2019-01-23] MEDS: LOSARTAN 50 MG TAB PO SCH (09:15)
[2019-01-23] MEDS: FUROSEMIDE 10 MG/ML 4 ML VIAL IV SCH ×2 (09:15→20:17)
--- NOTE | 2019-01-23 10:21 | P.PN ---
Subjective Progress Note Date: 01/23/19 Principal diagnosis: Acute exacerbation of chronic obstructive pulmonary disease with bilateral pleural effusions and probable diastolic congestive heart failure The patient is seen today 01/23/2019 in follow-up on the selective care unit. She is currently ambulating in the room with assistance. Awake and alert in no acute distress. Breathing easier today as compared to yesterday. She did undergo a right-sided thoracentesis and subsequent right-sided chest tube placement. Chest x-ray shows improved aeration in no significant pneumothorax. Positive air leak. Pleural fluid protein 3.8. LDH 1278. Exudative in nature. Cultures negative. Cytology pending. She remains on ceftriaxone and azithromycin along with bronchodilators and IV diuretics. Objective - Vital Signs Vital signs: Vital Signs Temp 98.3 F 01/23/19 03:15 Pulse 80 01/23/19 08:30 Resp 16 01/23/19 03:15 BP 112/61 01/23/19 03:15 Pulse Ox 96 01/23/19 03:15 Intake & Output 01/22/19 01/23/19 01/23/19 18:59 06:59 18:59 Intake Total 360 Output Total 1095 Balance 360 -1095 Weight 47 kg Intake: Oral 360 Output: Chest Tube Drainage 95 Chest Tube Right Lateral 95 Chest Urine 1000 Other: Voiding Method Toilet # Voids 0 - Exam GENERAL EXAM: Alert, active, pleasant 83-year-old female, comfortable in no apparent distress. On 4 L nasal cannula. HEAD: Normocephalic. EYES: Normal reaction of pupils, equal size. NOSE: Clear with pink turbinates. THROAT: No erythema or exudates. NECK: No masses, no JVD. CHEST: No chest wall deformity. Right-sided chest tube secured in place. Positive air leak. LUNGS: Equal air entry with crackles in the bilateral posterior bases. CVS: S1 and S2 normal with no audible murmur, regular rhythm. ABDOMEN: No hepatosplenomegaly, normal bowel sounds, no guarding or rigidity. SPINE: No scoliosis or deformity SKIN: No rashes CENTRAL NERVOUS SYSTEM: No focal deficits, tone is normal in all 4 extremities. EXTREMITIES: There is no peripheral edema. No clubbing, no cyanosis. Peripheral pulses are intact. - Labs CBC & Chem 7: 01/21/19 13:25 01/21/19 13:25 Labs: Abnormal Lab Results - Last 24 Hours (Table) 01/22/19 01/22/19 01/22/19 Range/Units 06:34 11:34 16:39 POC Glucose (mg/dL) 148 H 139 H (75-99) mg/dL Hemoglobin A1c 6.4 H (4.0-6.0) % 01/22/19 01/23/19 Range/Units 20:56 06:11 POC Glucose (mg/dL) 129 H 139 H (75-99) mg/dL Hemoglobin A1c (4.0-6.0) % Microbiology - Last 24 Hours (Table) 01/22/19 15:45 Gram Stain - Preliminary Pleural Fluid Body Fluid Culture - Preliminary 01/22/19 15:45 Acid Fast Bacilli Culture - Preliminary Pleural Fluid 01/22/19 15:45 Fungal Culture - Preliminary Pleural Fluid Assessment and Plan Assessment: Impression: #1 Acute exacerbation of chronic obstructive pulmonary disease complicated by suspected bibasilar pneumonia. #2 Acute exacerbation of diastolic congestive heart failure and bilateral pleural effusions. #3 Hypertension. #4 History of gastroesophageal reflux disease. #5 History of degenerative joint disease. #6 History of breast cancer status post right-sided mastectomy. #7 His history of heavy tobacco use. Plan: The patient was seen and evaluated by Dr. Wilkins. Chest x-ray and labs reviewed. Significant pneumothorax noted. Positive air leak. Pleural fluid cultures and cytology pending. Fluid is exudative in nature. She remains on ceftriaxone and azithromycin along with bronchodilators and IV steroids. Continued on IV diuretics. Increase her activity as tolerated. Encouraged use of the incentive spirometer and cough and deep breathing exercises. Repeat chest x-ray in the a.m. We'll continue to follow make further recommendations based on her clinical status. I, the cosigning physician, performed a history & physical examination of the patient. Lungs sounds crackles in posterior bases. Maintaining good O2 saturations in the 90s on 3 L/m per nasal cannula. I discussed the assessment and plan of care with my nurse practitioner, Cherri Ozuna. I attest to the above note as dictated by her.
[2019-01-23 11:50] LABS: Glucose,Whole Blood 130 mg/dL (75-99)
[2019-01-23] MEDS: AZITHROMYCIN 250 MG TAB PO SCH (13:00)
--- NOTE | 2019-01-23 15:57 | P.PN ---
Subjective Progress Note Date: 01/23/19 Patient seen and examined at bedside, oxygen saturations doing well with 3 L via nasal cannula with sats in the mid 90s. Patient underwent thoracentesis with procedural complication right-sided pneumothorax with subsequent chest tube placement. Her chest x-ray showing stable bilateral infiltrate and pleural effusion with no sizable pneumothorax with diffuse some subcutaneous emphysema patient working with her incentive spirometer only pulling approximately 1500ml. Objective - Vital Signs Vital signs: Vital Signs Temp 97.8 F 01/23/19 08:00 Pulse 82 01/23/19 12:51 Resp 16 01/23/19 03:15 BP 124/56 01/23/19 12:00 Pulse Ox 94 L 01/23/19 12:00 Intake & Output 01/22/19 01/23/19 01/23/19 18:59 06:59 18:59 Intake Total 360 530 Output Total 1095 Balance 360 -1095 530 Weight 47 kg 48.5 kg Intake: Intake, IV Titration 50 Amount cefTRIAXone 1 gm In 50 Sodium Chloride 0.9% 50 ml @ 100 mls/hr IVPB Q24HR [facility] Rx#:[id number] Oral 360 480 Output: Chest Tube Drainage 95 Chest Tube Right Lateral 95 Chest Urine 1000 Other: Voiding Method Toilet # Voids 0 - Exam Constitutional: No acute distress, conversant, pleasant Eyes: Anicteric sclerae, moist conjunctiva, no lid-lag, PERRLA ENMT: NC/AT,Oropharynx clear, no erythema, exudates Neck:Supple, FROM, no masses, or JVD, No carotid bruits; No thyromegaly Lungs: Clear to auscultation, Clear to percussion, Normal respiratory effort, no accessory muscle use Cardiovascular: Heart regular in rate and rhythm, No murmurs, gallops, or rubs no peripheral edema Abdominal: Soft Nontender, nom distended, no guarding, no rebound or rigidity, Normoactive bowel sounds No hepatomegaly, No splenomegaly, No palpable mass No abdominal wall hernia noted Skin: Normal temperature, tone, texture, turgor, No induration No subcutaneous nodules, No rash, lesions, No ulcers Extremities:No digital cyanosis No clubbing, Pedal pulses intact and symmetrical Radial pulses intact and symmetrical Normal gait and station, No calf tenderness Psychiatric: Alert and oriented to person, place and time, Appropriate affect Intact judgement Neuro: Muscles Strength 5/5 in all 4 extremities, Sensation to light touch gr ossly present throughout, Cranial nerves II-XII grossly intact. No focal sensory deficits - Labs CBC & Chem 7: 01/21/19 13:25 01/21/19 13:25 Labs: Abnormal Lab Results - Last 24 Hours (Table) 01/22/19 01/22/19 01/23/19 Range/Units 16:39 20:56 06:11 POC Glucose (mg/dL) 139 H 129 H 139 H (75-99) mg/dL 01/23/19 Range/Units 11:44 POC Glucose (mg/dL) 130 H (75-99) mg/dL Microbiology - Last 24 Hours (Table) 01/22/19 15:45 Gram Stain - Preliminary Pleural Fluid Body Fluid Culture - Preliminary 01/22/19 15:45 Acid Fast Bacilli Culture - Preliminary Pleural Fluid 01/22/19 15:45 Fungal Culture - Preliminary Pleural Fluid Assessment and Plan (1) Acute respiratory failure with hypoxia Narrative/Plan: * Likely multifactorial COPD exacerbation superimposed on possible underlying pneumonia and bilateral right greater than left pleural effusion secondary to likely diastolic CHF * Right-sided pneumothorax secondary to thoracentesis currently with right-sided chest tube * Continue current management * Pulmonary consulted appreciated recommendations Current Visit: Yes Status: Acute Code(s): J96.01 - ACUTE RESPIRATORY FAILURE WITH HYPOXIA SNOMED Code(s): 92085151 (2) Acute exacerbation of chronic obstructive airways disease Narrative/Plan: * The patient doing well without any significant wheezes * We'll switch from IV steroids to oral prednisone in the a.m. * Continue bronchodilator DuoNeb breathing treatments Q4/PRN * Continue current antibiotic regimen with Rocephin and azithromycin Current Visit: Yes Status: Acute Code(s): J44.1 - CHRONIC OBSTRUCTIVE PULMONARY DISEASE W (ACUTE) EXACERBATION SNOMED Code(s): 583314698 (3) Acute diastolic CHF (congestive heart failure) Narrative/Plan: * Echocardiogram indicating preserved LVEF of 55-60%, severely dilated left atrium * Moderate pulmonary hypertension, [id number] TR, moderate MR * Continue IV Lasix Current Visit: Yes Status: Acute Code(s): I50.31 - ACUTE DIASTOLIC (CONGESTIVE) HEART FAILURE SNOMED Code(s): 440669337 (4) CAP (community acquired pneumonia) Narrative/Plan: * No signs of sepsis continue antibiotic regimen above Current Visit: Yes Status: Acute Code(s): J18.9 - PNEUMONIA, UNSPECIFIED ORGANISM SNOMED Code(s): 850481143 (5) Essential hypertension Narrative/Plan: * Blood pressure stable on home regimen continue current management Current Visit: Yes Status: Acute Code(s): I10 - ESSENTIAL (PRIMARY) HYPERTENSION SNOMED Code(s): 41207606 (6) Pleural effusion Narrative/Plan: * Continue diuresis for now * Pulmonary following chest ultrasound performed * Noted right greater than left fluid pocket 11 cm versus 6 cm * Exudative effusion cytology pending Current Visit: Yes Status: Acute Code(s): J90 - PLEURAL EFFUSION, NOT ELSEWHERE CLASSIFIED SNOMED Code(s): 21496910 (7) Pneumothorax, postprocedural Narrative/Plan: * Right-sided chest tube in place with positive air leak Current Visit: Yes Status: Acute Code(s): J95.811 - POSTPROCEDURAL PN EUMOTHORAX SNOMED Code(s): 162239917 Plan: Disposition * Continue current management * Anticipated discharge 2 days
[2019-01-23 16:48] LABS: Glucose,Whole Blood 130 mg/dL (75-99)
[2019-01-23 20:04] LABS: Glucose,Whole Blood 182 mg/dL (75-99)
[2019-01-24 05:53] LABS: Glucose,Whole Blood 130 mg/dL (75-99)
[2019-01-24] MEDS: PANTOPRAZOLE 40 MG TABLET PO SCH (06:03)
[2019-01-24] MEDS: methylPREDNISolone SOD SUCCI 125 MG/2 ML VIAL IV SCH ×4 (06:04→23:39)
[2019-01-24] MEDS: HYDROcodone/APAP 5-325MG 1 EACH TAB PO PRN ×2 (06:06→20:39)
--- NOTE | 2019-01-24 07:35 | XR ---
EXAMINATION TYPE: XR chest 1V portable DATE OF EXAM: 01/24/2019 COMPARISON: 01/23/2019 INDICATION: Pneumothorax TECHNIQUE: Single frontal view of the chest is obtained. FINDINGS: The heart size is normal. The pulmonary vasculature is normal. Right-sided chest tube is present. No pneumothorax is evident. Small left pleural effusion is present . Minimal right pleural effusion may be present but appears improved from comparison there is improvi ng subcutaneous emphysema on the right. IMPRESSION: 1. Right-sided chest tube in position. No residual pneumothorax is evident. 2. Small left pleural effusion, diminished from comparison
[2019-01-24] MEDS: IPRATROPIUM-ALBUTEROL 3 ML NEB INHALATION SCH ×4 (07:51→21:09)
[2019-01-24] MEDS: BUDESONIDE 1 MG/2 ML NEBU INHALATION SCH ×2 (07:51→21:09)
[2019-01-24 08:19] LABS: Basophils % (A) 0 %; Eosinophils % (A) 0 %; HCT 46.9 % (34.0-46.0); HGB 14.8 gm/dL (11.4-16.0); Lymphocytes # (A) 1.6 k/uL (1.0-4.8); Lymphocytes % (A) 10 %; MCH 31.5 pg (25.0-35.0); MCHC 31.6 g/dL (31.0-37.0); MCV 99.5 fL (80.0-100.0); Mean Platelet Volume 8.1; Monocytes # (A) 0.6 k/uL (0-1.0); Monocytes % (A) 4 %; Neutrophils # (A) 14.1 k/uL (1.3-7.7); Neutrophils % (A) 86 %; Platelet Count 248 k/uL (150-450); RBC 4.71 m/uL (3.80-5.40); RDW 14.5 % (11.5-15.5); WBC 16.4 k/uL (3.8-10.6)
[2019-01-24 08:29] LABS: Calcium 8.9 mg/dL (8.4-10.2); Potassium 3.3 mmol/L (3.5-5.1)
[2019-01-24] MEDS: FUROSEMIDE 10 MG/ML 4 ML VIAL IV SCH ×2 (10:05→20:39)
[2019-01-24] MEDS: LOSARTAN 50 MG TAB PO SCH (10:05)
[2019-01-24] MEDS: MULTIVITAMINS, THERA 1 EACH TAB PO SCH (10:05)
[2019-01-24] MEDS: HEPARIN SODIUM,PORCINE 5,000 UNIT/ML 1 ML VIAL SQ SCH ×2 (10:05→20:39)
[2019-01-24] MEDS: ASPIRIN 81 MG PO SCH (10:05)
[2019-01-24] MEDS ORDERED: POTASSIUM CHLORIDE ER 20 MEQ TAB.ER PO STA (10:56)
--- NOTE | 2019-01-24 10:57 | P.PN ---
Subjective Progress Note Date: 01/24/19 Patient seen and examined at bedside, reports her breathing is much improved, in that she is doing well off oxygen. Patient underwent thoracentesis with procedural complication right-sided pneumothorax with subsequent chest tube placement. Her chest x-ray today showing small left pleural effusion, patient working with her incentive spirometer only pulling approximately 1500ml. pleural fluid analysis indicating exudative effusion positive for acid-fast bacilli, the patient placed on AFB respiratory/droplet precautions. Serum potassium 3.3, white count 16.6. The patient continues to be afebrile Objective - Vital Signs Vital signs: Vital Signs Temp 97.8 F 01/24/19 03:35 Pulse 86 01/24/19 08:07 Resp 16 01/24/19 03:35 BP 141/73 01/24/19 03:35 Pulse Ox 96 01/24/19 03:35 Intake & Output 01/23/19 01/24/19 01/24/19 18:59 06:59 18:59 Intake Total 890 240 Output Total 20 1040 Balance 870 -1040 240 Weight 48.5 kg 48.1 kg Intake: Intake, IV Titration 50 Amount cefTRIAXone 1 gm In 50 Sodium Chloride 0.9% 50 ml @ 100 mls/hr IVPB Q24HR [facility] Rx#:[id number] Oral 840 240 Output: Chest Tube Drainage 20 40 Chest Tube Right Lateral 20 40 Chest Urine 1000 Other: Voiding Method Toilet - Exam Constitutional: No acute distress, conversant, pleasant Eyes: Anicteric sclerae, moist conjunctiva, no lid-lag, PERRLA ENMT: NC/AT,Oropharynx clear, no erythema, exudates Neck:Supple, FROM, no masses, or JVD, No carotid bruits; No thyromegaly Lungs: Clear to auscultation, Clear to percussion, Normal respiratory effort, no accessory muscle use Cardiovascular: Heart regular in rate and rhythm, No murmurs, gallops, or rubs no peripheral edema Abdominal: Soft Nontender, nom distended, no guarding, no rebound or rigidity, Normoactive bowel sounds No hepatomegaly, No splenomegaly, No palpable mass No abdominal wall hernia noted Skin: Normal temperature, tone, texture, turgor, No induration No subcutaneous nodules, No rash, lesions, No ulcers Extremities:No digital cyanosis No clubbing, Pedal pulses intact and symmetrical Radial pulses intact and symmetrical Normal gait and station, No calf tenderness Psychiatric: Alert and oriented to person, place and time, Appropriate affect Intact judgement Neuro: Muscles Strength 5/5 in all 4 extremities, Sensation to light touch grossly present throughout, Cranial nerves II-XII grossly intact. No focal sens ory deficits - Labs CBC & Chem 7: 01/25/19 06:00 01/25/19 06:00 Labs: Abnormal Lab Results - Last 24 Hours (Table) 01/23/19 01/23/19 01/23/19 Range/Units 11:44 16:46 20:02 WBC (3.8-10.6) k/uL Hct (34.0-46.0) % Neutrophils # (1.3-7.7) k/uL Potassium (3.5-5.1) mmol/L Carbon Dioxide (22-30) mmol/L BUN (7-17) mg/dL Glucose (74-99) mg/dL POC Glucose (mg/dL) 130 H 130 H 182 H (75-99) mg/dL 01/24/19 01/24/19 01/24/19 Range/Units 05:52 08:05 08:05 WBC 16.4 H (3.8-10.6) k/uL Hct 46.9 H (34.0-46.0) % Neutrophils # 14.1 H (1.3-7.7) k/uL Potassium 3.3 L (3.5-5.1) mmol/L Carbon Dioxide 34 H (22-30) mmol/L BUN 38 H (7-17) mg/dL Glucose 183 H (74-99) mg/dL POC Glucose (mg/dL) 130 H (75-99) mg/dL Microbiology - Last 24 Hours (Table) 01/22/19 15:45 Acid Fast Bacilli Smear - Preliminary Pleural Fluid Acid Fast Bacilli Culture - Preliminary Acid fast bacilli isolated 01/22/19 15:45 Gram Stain - Preliminary Pleural Fluid Body Fluid Culture - Preliminary Assessment and Plan (1) Acute respiratory failure with hypoxia Narrative/Plan: * Likely multifactorial COPD exacerbation superimposed on possible underlying pneumonia and bilateral right greater than left pleural effusion secondary to likely diastolic CHF * Right-sided pneumothorax secondary to thoracentesis currently with right-sided chest tube * Continue current management * Pulmonary consulted appreciated recommendations Current Visit: Yes Status: Acute Code(s): J96.01 - ACUTE RESPIRATORY FAILURE WITH HYPOXIA SNOMED Code(s): 92658801 (2) Acute exacerbation of chronic obstructive airways disease Narrative/Plan: * The patient doing well without any significant wheezes * We'll switch from IV steroids to oral prednisone in the a.m. * Continue bronchodilator DuoNeb breathing treatments Q4/PRN * Continue current antibiotic regimen with Rocephin and azithromycin Current Visit: Yes Status: Acute Code(s): J44.1 - CHRONIC OBSTRUCTIVE PULMONARY DISEASE W (ACUTE) EXACERBATION SNOMED Code(s): 913641775 (3) Acute diastolic CHF (congestive heart failure) Narrative/Plan: * Echocardiogram indicating preserved LVEF of 55-60%, severely dilated left atri um * Moderate pulmonary hypertension, [id number] TR, moderate MR * Continue IV Lasix Current Visit: Yes Status: Acute Code(s): I50.31 - ACUTE DIASTOLIC (CONGESTIVE) HEART FAILURE SNOMED Code(s): 718103407 (4) CAP (community acquired pneumonia) Narrative/Plan: * No signs of sepsis continue antibiotic regimen above Current Visit: Yes Status: Acute Code(s): J18.9 - PNEUMONIA, UNSPECIFIED ORGANISM SNOMED Code(s): 257644472 (5) Essential hypertension Narrative/Plan: * Blood pressure stable on home regimen continue current management Current Visit: Yes Status: Acute Code(s): I10 - ESSENTIAL (PRIMARY) HYPERTENSION SNOMED Code(s): 53081630 (6) Pleural effusion Narrative/Plan: * Continue diuresis for now * Pulmonary following chest ultrasound performed * Noted right greater than left fluid pocket 11 cm versus 6 cm * Exudative effusion cytology pending, + AFB likely to be MAC Current Visit: Yes Status: Acute Code(s): J90 - PLEURAL EFFUSION, NOT ELSEWHERE CLASSIFIED SNOMED Code(s): 42789143 (7) Pneumothorax, postprocedural Narrative/Plan: * Right-sided chest tube in place with positive air leak Current Visit: Yes Status: Acute Code(s): J95.811 - POSTPROCEDURAL PNEUMOTHORAX SNOMED Code(s): 158484504
--- NOTE | 2019-01-24 11:01 | P.PN ---
Subjective Progress Note Date: 01/24/19 Principal diagnosis: Acute exacerbation of chronic obstructive pulmonary disease with bilateral pleural effusions and probable diastolic congestive heart failure The patient is seen today 01/24/2019 in follow-up in the selective care unit. She is now in respiratory isolation as her pleural fluid came back positive for acid-fast bacilli. Infectious disease is on the case. She remains awake and alert in no significant distress. She is maintaining good O2 saturations in the upper 90s on 3 L/m per nasal cannula. She's afebrile. Hemodynamically stable. Right-sided chest tube remains in place. There is a small leak still. Improved. White count 16.4. Hemoglobin 14.8. Potassium 3.3. Creatinine 1.00. She remains on DuoNeb inhalations, Pulmicort and Perforomist inhalations, IV solu Medrol. She is on IV Lasix. Antibiotics in the form of ceftriaxone and azithromycin. Chest x-ray shows small left pleural effusion minimal right pleural effusion but improved status post thoracentesis, right-sided chest tube in place. No residual pneumothorax. Objective - Vital Signs Vital signs: Vital Signs Temp 97.8 F 01/24/19 03:35 Pulse 86 01/24/19 08:07 Resp 16 01/24/19 03:35 BP 141/73 01/24/19 03:35 Pulse Ox 96 01/24/19 03:35 Intake & Output 01/23/19 01/24/19 01/24/19 18:59 06:59 18:59 Intake Total 890 240 Output Total 20 1040 Balance 870 -1040 240 Weight 48.5 kg 48.1 kg Intake: Intake, IV Titration 50 Amount cefTRIAXone 1 gm In 50 Sodium Chloride 0.9% 50 ml @ 100 mls/hr IVPB Q24HR [facility] Rx#:[id number] Oral 840 240 Output: Chest Tube Drainage 20 40 Chest Tube Right Lateral 20 40 Chest Urine 1000 Other: Voiding Method Toilet - Exam GENERAL EXAM: Alert, active, pleasant 83-year-old female, comfortable in no apparent distress. On 3 L nasal cannula. HEAD: Normocephalic. EYES: Normal reaction of pupils, equal size. NOSE: Clear with pink turbinates. THROAT: No erythema or exudates. NECK: No masses, no JVD. CHEST: Right-sided subcutaneous emphysema. Right-sided chest tube secured in place. Positive air leak. LUNGS: Equal air entry with crackles in the bilateral posterior bases. CVS: S1 and S2 normal with no audible murmur, regular rhythm. ABDOMEN: No hepatosplenomegaly, normal bowel sounds, no guarding or rigidity. SPINE: No scoliosis or deformity SKIN: No rashes CENTRAL NERVOUS SYSTEM: No focal deficits, tone is normal in all 4 extremities. EXTREMITIES: There is no peripheral edema. No clubbing, no cyanosis. Peripheral pulses are intact. - Labs CBC & Chem 7: 01/24/19 08:05 01/24/19 08:05 Labs: Abnormal Lab Results - Last 24 Hours (Table) 01/23/19 01/23/19 01/23/19 Range/Units 11:44 16:46 20:02 WBC (3.8-10.6) k/uL Hct (34.0-46.0) % Neutrophils # (1.3-7.7) k/uL Potassium (3.5-5.1) mmol/L Carbon Dioxide (22-30) mmol/L BUN (7-17) mg/dL Glucose (74-99) mg/dL POC Glucose (mg/dL) 130 H 130 H 182 H (75-99) mg/dL 01/24/19 01/24/19 01/24/19 Range/Units 05:52 08:05 08:05 WBC 16.4 H (3.8-10.6) k/uL Hct 46.9 H (34.0-46.0) % Neutrophils # 14.1 H (1.3-7.7) k/uL Potassium 3.3 L (3.5-5.1) mmol/L Carbon Dioxide 34 H (22-30) mmol/L BUN 38 H (7-17) mg/dL Glucose 183 H (74-99) mg/dL POC Glucose (mg/dL) 130 H (75-99) mg/dL Microbiology - Last 24 Hours (Table) 01/22/19 15:45 Acid Fast Bacilli Smear - Preliminary Pleural Fluid Acid Fast Bacilli Culture - Preliminary Acid fast bacilli isolated 01/22/19 15:45 Gram Stain - Preliminary Pleural Fluid Body Fluid Culture - Preliminary Assessment and Plan Assessment: Impression: #1 Acute exacerbation of chronic obstructive pulmonary disease complicated by suspected bibasilar pneumonia. Possible atypical mycobacterium infection. Status post right-sided thoracentesis with initial fluid positive for acid fast bacilli and is currently on respiratory isolation. Right-sided chest tube remains in place for right-sided pneumothorax. #2 Acute exacerbation of diastolic congestive heart failure and bilateral pleural effusions. #3 Hypertension. #4 History of gastroesophageal reflux disease. #5 History of degenerative joint disease. #6 History of breast cancer status post right-sided mastectomy. #7 His history of heavy tobacco use. Plan: The patient was seen and evaluated by Dr. Wilkins. Pleural fluid positive for acid-fast bacilli. She is now in respiratory isolation. Final cultures pending. Chest x-ray and labs reviewed. No residual pneumothorax noted. Right -sided chest tube remains in place. Positive air leak. She remains on ceftriaxone and azithromycin along with bronchodilators and IV steroids. Continued on IV diuretics. Increase her activity as tolerated. Encouraged the use of the incentive spirometer and cough and deep breathing exercises. Repeat chest x-ray in the a.m. We'll continue to follow and make further recommendations based on her clinical status. I, the cosigning physician, performed a history & physical examination of the patient. Lungs sounds crackles in posterior bases. Maintaining good O2 saturations in the 90s on 3 L/m per nasal cannula. I discussed the assessment and plan of care with my nurse practitioner, Cherri Ozuna. I attest to the above note as dictated by her.
[2019-01-24] MEDS: FORMOTEROL FUMARATE 20 MCG/2 ML NEBU INHALATION SCH ×2 (11:50→21:09)
[2019-01-24 12:08] LABS: Glucose,Whole Blood 116 mg/dL (75-99)
[2019-01-24] MEDS: AZITHROMYCIN 250 MG TAB PO SCH (14:30)
[2019-01-24 17:07] LABS: Glucose,Whole Blood 118 mg/dL (75-99)
[2019-01-24 20:55] LABS: Glucose,Whole Blood 128 mg/dL (75-99)
--- NOTE | 2019-01-24 22:45 | P.CONS ---
History of Present Illness - Reason for Consult Consult date: 01/24/19 - Chief Complaint Increasing shortness of breath - History of Present Illness Pleasant 83-year-old woman presents to hospital with a several-day history of increasing shortness of breath. She relates that she was doing very well until June of this year. She was able to accomplish all her activities around her home and activities outside of the home without significant trouble. She became ill in June and had the severe viral infection that was quite common during that respiratory season. And although she recovered from fevers and chills she never recovered her baseline pulmonary status. She is struggling ever since with shortness of breath, dyspnea with exertion and feeling weak and tired. She was treated with an inhaler but does not believe that allowed much improvement. Because of her ongoing symptoms she had outpatient pulmonary function test that appears to reveal evidence of significant COPD with the diffusion defect. She now presents with progressive shortness of breath having difficulties with shortness of breath at rest and any activity and constantly presented to the emergency center. X-ray revealed evidence of bilateral effusions right greater than left in consolidative changes related to the effusions. She was seen bipolar critical care and a thoracentesis was performed however she had evidence of some pneumothorax requiring evidence of the chest tube. She fortunately is not having much pain with the chest tube and her profound shortness of breath is actually quite a bit improved especially from several days ago. She denies hemoptysis. She has no history of tuberculosis, parents did not have tuberculosis, never had any family members in a TB sanitarium. She has not been a traveler and has never been outside of the [facility], routinely stays only in the [facility] area. Review of Systems HEENT:Denies headache or acute visual change. Denies sinus or mouth discomforts. Denies neck stiffness or pain. Denies significant oral cavity pain. Denies difficulty on swallowing. Lungs: Profound shortness of breath that has now improved, some cough without hemoptysis minimal sputum production. Cardiovascular: Denies chest pain, chest wall pain, orthopnea, or syncope. She is having significant dyspnea with exertion but this is improved since the chest tube was placed Gastrointestinal:Denies nausea, vomiting, diarrhea, constipation, hematemesis, melena, hematochezia. No no significant change of bowel habit noticed. Musculoskeletal: denies significant myalgias or arthralgias. No new joint swelling. Denies new back pain. Skin: Denies new rash or lesions. No new ulcers or wounds are related.. Neuro: Denies headache or visual change. Denies any new onset weakness or difficulty with ambulation. Denies falls or seizures. Psychiatric:Denies anxiety or depression. Endocrine: Profound fatigue is having difficulty with some ongoing weight loss Past Medical History Past Medical History: COPD, Hypertension, Osteoarthritis (OA) Additional Past Medical History / Comment(s): emphysema; irreg heart rate History of Any Multi-Drug Resistant Organisms: None Reported Past Surgical History: Appendectomy, Heart Catheterization, Tonsillectomy, Tubal Ligation Additional Past Surgical History / Comment(s): rt breast lumpectomy Past Anesthesia/Blood Transfusion Reactions: No Reported Reaction Past Psychological History: Anxiety Additional Psychological History / Comment(s): Has been for 22 years. Lives independently. Reformed smoker. No recent international travel. 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 Retired security officer supervisor. No experience. No international travel does not like to travel et al. Stays in the [facility] area most of the time Smoking Status: Former smoker Past Alcohol Use History: Occasional Past Drug Use History: None Reported - Past Family History Sister(s) Family Medical History: Cancer Medications and Allergies Home Medications and Allergies Comment(s): Current Medications Hydrocodone Bitart/Acetaminophen (Pearl 5-325) 1 each PO Q6HR PRN PRN Reason: Pain Last Admin: 01/24/19 20:39 Dose: 1 each Documented by: Albuterol/Ipratropium (Duoneb 0.5 Mg-3 Mg/3 Ml Soln) 3 ml INHALATION RT-Q4H PRN PRN Reason: Shortness Of Breath Or Wheezing Albuterol/Ipratropium (Duoneb 0.5 Mg-3 Mg/3 Ml Soln) 3 ml INHALATION RT-QID [facility] Last Admin: 01/24/19 21:09 Dose: 3 ml Documented by: Aspirin (Aspirin) 162 mg PO DAILY [facility] Last Admin: 01/24/19 10:05 Dose: 162 mg Documented by: Azithromycin (Zithromax) 250 mg PO DAILY [facility] Last Admin: 01/24/19 14:30 Dose: 250 mg Documented by: Budesonide (Pulmicort) 1 mg INHALATION RT-BID [facility] Last Admin: 01/24/19 21:09 Dose: 1 mg Documented by: Formoterol Fumarate (Perforomist) 20 mcg INHALATION RT-BID [facility] Last Admin: 01/24/19 21:09 Dose: 20 mcg Documented by: Furosemide (Lasix) 40 mg IV Q12HR [facility] Last Admin: 01/24/19 20:39 Dose: 40 mg Documented by: Heparin Sodium (Porcine) (Heparin) 5,000 unit SQ Q12HR [facility] Last Admin: 01/24/19 20:39 Dose: 5,000 unit Documented by: Ceftriaxone Sodium 1 gm/ (Sodium Chloride) 50 mls @ 100 mls/hr IVPB Q24HR [facility] Last Admin: 01/24/19 10:05 Dose: 100 mls/hr Documented by: Insulin Aspart (Novolog) 0 unit SQ ACHS PRN; Protocol PRN Reason: Blood Sugar - High Last Admin: 01/23/19 20:17 Dose: 4 unit Documented by: Losartan Potassium (Cozaar) 50 mg PO DAILY [facility] Last Admin: 01/24/19 10:05 Dose: 50 mg Documented by: Methylprednisolone Sodium Succinate (Solu-Medrol) 60 mg IV Q6HR [facility] Last Admin: 01/24/19 18:15 Dose: 60 mg Documented by: Multivitamins (Theragran) 1 each PO DAILY [facility] Last Admin: 01/24/19 10:05 Dose: 1 each Documented by: Pantoprazole Sodium (Protonix) 40 mg PO AC-BRKFST [facility] Last Admin: 01/24/19 06:03 Dose: 40 mg Documented by: Home Medications Medication Instructions Recorded Confirmed Type Aspirin 162 mg PO DAILY 11/05/13 01/21/19 History Losartan [Cozaar] 50 mg PO DAILY 11/05/13 01/21/19 History Multivitamins, Thera [Multivitamin 1 tab PO DAILY 01/21/19 01/21/19 History (formulary)] Umeclidinium Brm/Vilanterol Tr 1 puff INHALATION RT-DAILY 01/21/19 01/21/19 History [Anoro Ellipta 62.5-25 Mcg INH] Allergies Allergy/AdvReac Type Severity Reaction Status Date / Time No Known Allergies Allergy Verified 01/21/19 13:17 Physical Exam Vitals: Vital Signs Temp Pulse Pulse Resp BP Pulse Ox 01/24/19 21:33 80 01/24/19 21:24 80 01/24/19 21:23 80 01/24/19 21:11 80 01/24/19 20:40 98.0 F 75 16 159/79 97 01/24/19 16:44 82 01/24/19 16:27 82 01/24/19 16:00 83 118/61 95 01/24/19 12:12 84 01/24/19 12:06 81 01/24/19 12:05 81 01/24/19 12:00 78 125/69 96 01/24/19 11:50 80 01/24/19 08:07 86 01/24/19 08:00 98.1 F 67 145/77 95 01/24/19 07:50 85 01/24/19 03:35 97.8 F 74 16 141/73 96 01/23/19 23:44 98.1 F 92 16 106/61 95 Intake and Output 01/24/19 01/24/19 01/24/19 06:59 14:59 22:59 Intake Total 480 720 Output Total 1040 Balance -1040 480 720 Intake: Oral 480 720 Output: Chest Tube Drainage 40 Chest Tube Right Lateral 40 Chest Urine 1000 Other: Voiding Method Toilet Toilet # Voids 1 Weight 48.1 kg 83-year-old woman of a very thin build HEENT: Anicteric conjunctiva are pink and moist nasal mucosa grossly intact wit hout significant lesions, there is no thrush. Neck: The neck is supple without significant lymphadenopathy or thyromegaly. Lungs: Symmetrical entry is noted however there are crackles in the right base. There are a few expiratory wheezes that are scattered no bronchial sounds Heart: Regular rate and rhythm with an audible S1-S2, no S3 no S4. There is no significant murmur click or rub, PMI was nondisplaced. Abdomen: Positive bowel sounds soft and nontender without palpable masses or organomegaly. There was no guarding or rebound. Extremities: The upper extremities have excellent pulses they are symmetric, no significant petechiae or telangiectasia. No splinter hemorrhages were noted. The lower extremities are free from significant edema. The peripheral pulses were 2+ and symmetric. Neuro: Awake alert oriented to person place and time. There are no acute new gross focal sensory motor deficits. Chest tube site of the right anterior chest wall is without drainage Results CBC & Chem 7: 01/24/19 08:05 01/24/19 08:05 Labs: Abnormal Lab Results - Last 24 Hours (Table) 01/24/19 01/24/19 01/24/19 Range/Units 05:52 08:05 08:05 WBC 16.4 H (3.8-10.6) k/uL Hct 46.9 H (34.0-46.0) % Neutrophils # 14.1 H (1.3-7.7) k/uL Potassium 3.3 L (3.5-5.1) mmol/L Carbon Dioxide 34 H (22-30) mmol/L BUN 38 H (7-17) mg/dL Glucose 183 H (74-99) mg/dL POC Glucose (mg/dL) 130 H (75-99) mg/dL 01/24/19 01/24/19 01/24/19 Range/Units 12:01 16:55 20:54 WBC (3.8-10.6) k/uL Hct (34.0-46.0) % Neutrophils # (1.3-7.7) k/uL Potassium (3.5-5.1) mmol/L Carbon Dioxide (22-30) mmol/L BUN (7-17) mg/dL Glucose (74-99) mg/dL POC Glucose (mg/dL) 116 H 118 H 128 H (75-99) mg/dL Microbiology - Last 24 Hours (Table) 01/22/19 15:45 Acid Fast Bacilli Smear - Preliminary Pleural Fluid Acid Fast Bacilli Culture - Preliminary Acid fast bacilli isolated 01/22/19 15:45 Gram Stain - Preliminary Pleural Fluid Body Fluid Culture - Preliminary Laboratory Results WBC 16.4 k/uL (3.8-10.6) H 01/24/19 08:05 RBC 4.71 m/uL (3.80-5.40) 01/24/19 08:05 Hgb 14.8 gm/dL (11.4-16.0) 01/24/19 08:05 Hct 46.9 % (34.0-46.0) H 01/24/19 08:05 MCV 99.5 fL (80.0-100.0) 01/24/19 08:05 MCH 31.5 pg (25.0-35.0) 01/24/19 08:05 MCHC 31.6 g/dL (31.0-37.0) 01/24/19 08:05 RDW 14.5 % (11.5-15.5) 01/24/19 08:05 Plt Count 248 k/uL (150-450) 01/24/19 08:05 Neutrophils % 86 % 01/24/19 08:05 Lymphocytes % 10 % 01/24/19 08:05 Monocytes % 4 % 01/24/19 08:05 Eosinophils % 0 % 01/24/19 08:05 Basophils % 0 % 01/24/19 08:05 Neutrophils # 14.1 k/uL (1.3-7.7) H 01/24/19 08:05 Lymphocytes # 1.6 k/uL (1.0-4.8) 01/24/19 08:05 Monocytes # 0.6 k/uL (0-1.0) 01/24/19 08:05 Eosinophils # 0.0 k/uL (0-0.7) 01/24/19 08:05 Basophils # 0.0 k/uL (0-0.2) 01/24/19 08:05 PT 10.8 sec (9.0-12.0) 01/21/19 13:25 INR 1.0 (<1.2) 01/21/19 13:25 APTT 22.2 sec (22.0-30.0) 01/21/19 13:25 D-Dimer 1.25 mg/L FEU (<0.60) H 01/21/19 13:25 Sodium 141 mmol/L (137-145) 01/24/19 08:05 Potassium 3.3 mmol/L (3.5-5.1) L 01/24/19 08:05 Chloride 98 mmol/L (98-107) 01/24/19 08:05 Carbon Dioxide 34 mmol/L (22-30) H 01/24/19 08:05 Anion Gap 9 mmol/L 01/24/19 08:05 BUN 38 mg/dL (7-17) H 01/24/19 08:05 Creatinine 1.00 mg/dL (0.52-1.04) 01/24/19 08:05 Est GFR (CKD-EPI)AfAm 60 (>60 ml/min/1.73 sqM) 01/24/19 08:05 Est GFR (CKD-EPI)NonAf 52 (>60 ml/min/1.73 sqM) 01/24/19 08:05 Glucose 183 mg/dL (74-99) H 01/24/19 08:05 POC Glucose (mg/dL) 128 mg/dL (75-99) H 01/24/19 20:54 POC Glu [employer] Grading Supervisor Denita Sheppard 01/24/19 20:[address] Glu mg/dL 137 01/22/19 06:34 Hemoglobin A1c 6.4 % (4.0-6.0) H 01/22/19 06:34 Calcium 8.9 mg/dL (8.4-10.2) 01/24/19 08:05 Magnesium 1.9 mg/dL (1.6-2.3) 01/21/19 13:25 Total Bilirubin 0.7 mg/dL (0.2-1.3) 01/21/19 13:25 AST 55 U/L (14-36) H 01/21/19 13:25 ALT 47 U/L (9-52) 01/21/19 13:25 Alkaline Phosphatase 64 U/L (38-126) 01/21/19 13:25 Troponin I <0.012 ng/mL (0.000-0.034) 01/21/19 13:28 NT-Pro-B Natriuret Pep 940 pg/mL 01/21/19 13:25 Total Protein 6.2 g/dL (6.3-8.2) L 01/21/19 13:25 Albumin 4.1 g/dL (3.5-5.0) 01/21/19 13:25 Fluid Source Pleural 01/22/19 15:45 Fluid Color Yellow 01/22/19 15:45 Fluid Appearance Cloudy 01/22/19 15:45 Fluid RBC 9360 /uL 01/22/19 15:45 Fluid Nucleated Cells 2540 /uL 01/22/19 15:45 Fluid Polynuclear WBCs 12 % 01/22/19 15:45 Fluid Mononuclear WBCs 88 % 01/22/19 15:45 Body Fluid Glucose Source Pleural Fluid 01/22/19 15:45 Fluid Glucose 74 mg/dL 01/22/19 15:45 Body Fluid Protein Source Pleural Fluid 01/22/19 15:45 Fluid Total Protein 3840.0 mg/dL 01/22/19 15:45 Body Fluid LDH Source Pleural Fluid 01/22/19 15:45 Fluid LDH 1278 U/L 01/22/19 15:45 Microbiology 01/22/19 15:45 Pleural Fluid Acid Fast Bacilli Smear - Preliminary 01/22/19 15:45 Pleural Fluid Acid Fast Bacilli Culture - Preliminary Acid fast bacilli isolated 01/22/19 15:45 Pleural Fluid Gram Stain - Preliminary 01/22/19 15:45 Pleural Fluid Body Fluid Culture - Preliminary 01/22/19 15:45 Pleural Fluid Fungal Culture - Preliminary Chest x-ray: image reviewed (Emphysema with pleural effusions improved status post chest tube placement right) Assessment and Plan (1) Acute exacerbation of chronic obstructive airways disease Current Visit: Yes Status: Acute Code(s): J44.1 - CHRONIC OBSTRUCTIVE P ULMONARY DISEASE W (ACUTE) EXACERBATION SNOMED Code(s): 329658053 (2) Pleural effusion Narrative/Plan: 83-year-old female presents to Hospital with progressive shortness of breath is evidence of an exacerbation of COPD and notation of pleural effusion and secondary consolidation. Because she was very symptomatic thoracentesis was performed however had a pneumothorax the chest tube is in place. She for she has not having much pain in his related that with the chest tube in place she is able to ambulate to the restroom without significant and severe dyspnea on exertion as she was having before and neck she was she was dyspneic at rest which has resolved. Routine testing of the fluid is been performed and the acid-fast smear has come back positive for acid-fast bacilli. The patient has no known history of tuberculosis, her chest x-ray shows no evidence of granulomatous disease, there is no evidence of any calcified lymph nodes, and she has no family history or exposure to tuberculosis. 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 The patient is in appropriate negative pressure isolation at this time until further data is available. Fortunately is noted she is feeling better. Hopefully the next short period of time the probes will be available to identify the species of Mycobacterium. Once available we'll be able to initiate therapy which I believe is required given her symptomatic pleural effusions. In the meantime continue the treatments for exacerbation of COPD with the effusions and we shall monitor. Current Visit: Yes Status: Acute Code(s): J90 - PLEURAL EFFUSION, NOT ELSEWHERE CLASSIFIED SNOMED Code(s): 16774171 (3) Pneumothorax, postprocedural Current Visit: Yes Status: Acute Code(s): J95.811 - POSTPROCEDURAL PNEUMOTHORAX SNOMED Code(s): 578657758
[2019-01-25] MEDS: HYDROcodone/APAP 5-325MG 1 EACH TAB PO PRN ×2 (04:14→22:21)
[2019-01-25] MEDS: methylPREDNISolone SOD SUCCI 125 MG/2 ML VIAL IV SCH (05:55)
[2019-01-25] MEDS: PANTOPRAZOLE 40 MG TABLET PO SCH (05:55)
[2019-01-25 06:50] LABS: Basophils % (A) 0 %; Eosinophils % (A) 0 %; HCT 47.7 % (34.0-46.0); HGB 15.4 gm/dL (11.4-16.0); Lymphocytes # (A) 1.7 k/uL (1.0-4.8); Lymphocytes % (A) 17 %; MCH 31.9 pg (25.0-35.0); MCHC 32.2 g/dL (31.0-37.0); MCV 98.9 fL (80.0-100.0); Mean Platelet Volume 7.5; Monocytes # (A) 0.3 k/uL (0-1.0); Monocytes % (A) 3 %; Neutrophils # (A) 7.8 k/uL (1.3-7.7); Neutrophils % (A) 79 %; Platelet Count 252 k/uL (150-450); RBC 4.83 m/uL (3.80-5.40); WBC 9.9 k/uL (3.8-10.6)
[2019-01-25 06:55] LABS: Calcium 8.9 mg/dL (8.4-10.2); Potassium 3.4 mmol/L (3.5-5.1)
[2019-01-25 06:57] LABS: Glucose,Whole Blood 117 mg/dL (75-99)
[2019-01-25] MEDS ORDERED: POTASSIUM CHLORIDE ER 20 MEQ TAB.ER PO STA (07:21)
[2019-01-25] MEDS ORDERED: Potassium Replacement Protocol 1 EACH MISC MISCELLANE PRN (07:23)
--- NOTE | 2019-01-25 08:33 | XR ---
EXAMINATION TYPE: XR chest 1V portable DATE OF EXAM: 01/25/2019 HISTORY: Shortness of breath. COMPARISON: January 24, 2019 TECHNIQUE: Single view of the chest is submitted. FINDINGS: Demonstrated are scattered senescent parenchymal change. Persistent right-sided chest tube. No sizable pneumothorax identified. Left basilar pleural effusion and/or atelectasis unchanged. The heart is stable. Hilar and mediastinal structures are within normal limits. Degenerative changes are seen of the dorsal spine. IMPRESSION: 1. Stable chest.
[2019-01-25] MEDS: IPRATROPIUM-ALBUTEROL 3 ML NEB INHALATION SCH ×4 (09:13→21:28)
[2019-01-25] MEDS: BUDESONIDE 1 MG/2 ML NEBU INHALATION SCH ×2 (09:13→21:28)
[2019-01-25] MEDS: FORMOTEROL FUMARATE 20 MCG/2 ML NEBU INHALATION SCH ×2 (09:13→21:27)
[2019-01-25] MEDS ORDERED: predniSONE 20 MG TAB PO SCH (09:30)
[2019-01-25] MEDS: FUROSEMIDE 10 MG/ML 4 ML VIAL IV SCH (09:38)
[2019-01-25] MEDS: LOSARTAN 50 MG TAB PO SCH (09:42)
[2019-01-25] MEDS: ASPIRIN 81 MG PO SCH (09:42)
[2019-01-25] MEDS: MULTIVITAMINS, THERA 1 EACH TAB PO SCH (09:42)
[2019-01-25] MEDS: HEPARIN SODIUM,PORCINE 5,000 UNIT/ML 1 ML VIAL SQ SCH ×2 (09:43→22:20)
[2019-01-25] MEDS: FUROSEMIDE 40 MG TAB PO SCH (09:50)
--- NOTE | 2019-01-25 10:30 | CDI ---
Documentation Clarification Form Date: 01/25/2019 9:59:51 AM From: Li Hand RN, CCDS Admit Date: 01/21/2019 4:11:00 PM Patient Name: Micheline Cleary Visit Number: [id number] Discharge Date: ATTENTION: The Clinical Documentation Specialists (CDI) and [facility] Coding Staff appreciate your assistance in clarifying documentation. Please respond to the clarification below the line at the bottom and electronically sign. The CDI & [facility] Coding staff will review the response and follow-up if needed. Please note: Queries are made part of the Legal Health Record. If you have any questions, please contact the author of this message via ITS. Dr. Stan Wilkins 01/22/19 A right pneumothorax is documented following a right-sided thoracentesis and further clarification is needed. Patients Admitting Diagnosis: Acute exacerbation of chronic obstructive pulmonary disease complicated by suspected bibasilar pneumonia. Possible atypical mycobacterium infection. Post-Operative Diagnosis: Same Procedure performed: Right-sided Thoracentesis, Right-sided Chest tube History/Risk Factors: COPD, Diastolic Heart Failure, Hypertension, Right breast cancer, History of heavy tobacco use. Clinical Indicators: 83-year-old female present with increasing shortness of breath. Her x-ray revealed evidence of bilateral effusion right greater than left and consolidative changes related the effusions. She had a thoracentesis and follow up x-ray had evidence of a right pneumothorax requiring a chest tube, with positive air leak. Vital signs: 141/73 86 16 97.8 96 % 3/L NC Treatment: Chest tube to drainage Chest X-rays per orders Incentive spirometer/cough and deep breathing exercises. Bronchodilators IV steroids (now PO) AFB respiratory/droplet precautions Rocephin IV Zithromax PO IV Lasix In order to accurately reflect this patients severity of illness, please clarify if the post-operative diagnosis of a Right Pneumothorax is: An expected post-procedural or post-surgical condition, due to patient's underlying medical comorbidities An unexpected post-procedural or post-surgical condition, related to the patients underlying medical comorbidities Other, please specify Unable to determine (Last Revision: September 2018) An expected complication MTDD
[2019-01-25 11:49] LABS: Glucose,Whole Blood 147 mg/dL (75-99)
[2019-01-25] MEDS: AZITHROMYCIN 250 MG TAB PO SCH (12:29)
--- NOTE | 2019-01-25 15:11 | P.PN ---
Subjective Progress Note Date: 01/25/19 Principal diagnosis: Acute exacerbation of chronic obstructive pulmonary disease with bilateral pleural effusions and probable diastolic congestive heart failure The patient is seen today 01/24/2019 in follow-up in the selective care unit. She is now in respiratory isolation as her pleural fluid came back positive for acid-fast bacilli. Infectious disease is on the case. She remains awake and alert in no significant distress. She is maintaining good O2 saturations in the upper 90s on 3 L/m per nasal cannula. She's afebrile. Hemodynamically stable. Right-sided chest tube remains in place. There is a small leak still. Improved. White count 16.4. Hemoglobin 14.8. Potassium 3.3. Creatinine 1.00. She remains on DuoNeb inhalations, Pulmicort and Perforomist inhalations, IV solu Medrol. She is on IV Lasix. Antibiotics in the form of ceftriaxone and azithromycin. Chest x-ray shows small left pleural effusion minimal right pleural effusion but improved status post thoracentesis, right-sided chest tube in place. No residual pneumothorax. The patient is seen today 01/25/2019 in follow-up on the selective care unit. She is currently awake and alert in no acute distress. Resting comfortably in bed. She is somewhat upset regarding her potential diagnosis. Remains in pulmonary isolation. Pleural fluid positive for acid-fast bacilli. Further cultures are pending. White count 9.9. Hemoglobin 15.4. Creatinine 0.91. She is currently on ceftriaxone and azithromycin. Maintained on DuoNeb inhalations, Pulmicort and Perforomist inhalations. Steroids have been discontinued. Objective - Vital Signs Vital signs: Vital Signs Temp 97.7 F 01/25/19 08:30 Pulse 83 01/25/19 13:33 Resp 18 01/25/19 08:30 BP 138/76 01/25/19 08:30 Pulse Ox 96 01/25/19 08:30 Intake & Output 01/24/19 01/25/19 01/25/19 18:59 06:59 18:59 Intake Total 1200 240 Balance 1200 240 Weight 46 kg Intake: Oral 1200 240 Other: Voiding Method Toilet # Voids 1 1 - Exam GENERAL EXAM: Alert, pleasant 83-year-old female, comfortable in no apparent distress. On 3 L nasal cannula. HEAD: Normocephalic. EYES: Normal reaction of pupils, equal size. NOSE: Clear with pink turbinates. THROAT: No erythema or exudates. NECK: No masses, no JVD. CHEST: Right-sided subcutaneous emphysema. Right-sided chest tube secured in place. No significant air leak. To low continuous suction. LUNGS: Equal air entry with crackles in the bilateral posterior bases. CVS: S1 and S2 normal with no audible murmur, regular rhythm. ABDOMEN: No hepatosplenomegaly, normal bowel sounds, no guarding or rigidity. SPINE: No scoliosis or deformity SKIN: No rashes CENTRAL NERVOUS SYSTEM: No focal deficits, tone is normal in all 4 extremities. EXTREMITIES: There is no peripheral edema. No clubbing, no cyanosis. Peripheral pulses are intact. - Labs CBC & Chem 7: 01/25/19 06:00 01/25/19 06:00 Labs: Abnormal Lab Results - Last 24 Hours (Table) 01/24/19 01/24/19 01/25/19 Range/Units 16:55 20:54 06:00 Hct 47.7 H (34.0-46.0) % Neutrophils # 7.8 H (1.3-7.7) k/uL Potassium (3.5-5.1) mmol/L Chloride (98-107) mmol/L Carbon Dioxide (22-30) mmol/L BUN (7-17) mg/dL Glucose (74-99) mg/dL POC Glucose (mg/dL) 118 H 128 H (75-99) mg/dL 01/25/19 01/25/19 01/25/19 Range/Units 06:00 06:55 11:47 Hct (34.0-46.0) % Neutrophils # (1.3-7.7) k/uL Potassium 3.4 L (3.5-5.1) mmol/L Chloride 97 L (98-107) mmol/L Carbon Dioxide 36 H (22-30) mmol/L BUN 43 H (7-17) mg/dL Glucose 135 H (74-99) mg/dL POC Glucose (mg/dL) 117 H 147 H (75-99) mg/dL Microbiology - Last 24 Hours (Table) 01/22/19 15:45 Gram Stain - Preliminary Pleural Fluid Body Fluid Culture - Preliminary Assessment and Plan Assessment: Impression: #1 Acute exacerbation of chronic obstructive pulmonary disease complicated by suspected bibasilar pneumonia. Possible atypical mycobacterium infection. Status post right-sided thoracentesis with initial fluid positive for acid fast bacilli and is currently on respiratory isolation. Right-sided chest tube remains in place, x-ray shows no further pneumothorax. #2 Acute exacerbation of diastolic congestive heart failure and bilateral pleural effusions. #3 Hypertension. #4 History of gastroesophageal reflux disease. #5 History of degenerative joint disease. #6 History of breast cancer status post right-sided mastectomy. #7 His history of heavy tobacco use. Plan: The patient was seen and evaluated by Dr. Thayer. Pleural fluid positive for acid-fast bacilli. Adenosine deaminase (ADA) ordered. She remains in respiratory isolation. Final cultures pending. Chest x-ray and labs reviewed. No residual pneumothorax noted. Right-sided chest tube remains in place. Minimal leak. Placed to continuous low wall suction. Repeat a chest x-ray in the a.m. Hopefully pull the chest tube tomorrow. She remains on ceftriaxone and azithromycin along with bronchodilators. There is discontinued. On oral diuretics. Increase her activity as tolerated. Encouraged the use of the incentive spirometer and cough and deep breathing exercises. We'll continue to follow and make further recommendations based on her clinical status. I, the cosigning physician, performed a history & physical examination of the patient. Lungs sounds crackles in posterior bases. Maintaining good O2 saturations in the 90s on 3 L/m per nasal cannula. I discussed the assessment and plan of care with my nurse practitioner, Cherri Ozuna. I attest to the above note as dictated by her.
[2019-01-25 16:46] LABS: Glucose,Whole Blood 123 mg/dL (75-99)
[2019-01-25 21:40] LABS: Glucose,Whole Blood 142 mg/dL (75-99)
[2019-01-26] MEDS: PANTOPRAZOLE 40 MG TABLET PO SCH (07:08)
--- NOTE | 2019-01-26 08:55 | XR ---
EXAMINATION TYPE: XR chest 1V portable DATE OF EXAM: 01/26/2019 COMPARISON: 01/25/2019 HISTORY: Right-sided pneumothorax. Follow-up for chest tube placement. TECHNIQUE: Single frontal view of the chest is obtained. FINDINGS: There is a skinfold overlying the right hemithorax with lung markings seen beyond the skin fold. Right thoracostomy tube has been slightly retracted in the interim with no residual pneumothora x seen. There is a small left pleural effusion overall similar in volume with atelectasis as there is leftward mediastinal shift and volume loss. Underlying pneumonia is also a possibility. Diffuse osse ous demineralization is seen. No pulmonary vascular congestion. Cardiomediastinal silhouette is obscu red. IMPRESSION: Similar-appearing small left pleural effusion and left basilar airspace disease with at least a component of atelectasis given the mediastinal shift due to volume loss. Right thoracostomy t ube has been slightly retracted in the interim with no residual pneumothorax seen.
[2019-01-26] MEDS: HEPARIN SODIUM,PORCINE 5,000 UNIT/ML 1 ML VIAL SQ SCH ×2 (09:04→20:12)
[2019-01-26] MEDS: LOSARTAN 50 MG TAB PO SCH (09:05)
[2019-01-26] MEDS: MULTIVITAMINS, THERA 1 EACH TAB PO SCH (09:05)
[2019-01-26] MEDS: FUROSEMIDE 40 MG TAB PO SCH (09:05)
[2019-01-26] MEDS: HYDROcodone/APAP 5-325MG 1 EACH TAB PO PRN (09:05)
[2019-01-26] MEDS: ASPIRIN 81 MG PO SCH (09:09)
[2019-01-26 09:11] LABS: Calcium 9.5 mg/dL (8.4-10.2); Potassium 3.4 mmol/L (3.5-5.1)
[2019-01-26] MEDS: IPRATROPIUM-ALBUTEROL 3 ML NEB INHALATION SCH ×4 (10:05→19:16)
[2019-01-26] MEDS: BUDESONIDE 1 MG/2 ML NEBU INHALATION SCH ×2 (10:05→19:16)
[2019-01-26] MEDS: FORMOTEROL FUMARATE 20 MCG/2 ML NEBU INHALATION SCH ×2 (10:06→19:16)
[2019-01-26] MEDS: AZITHROMYCIN 250 MG TAB PO SCH (10:15)
[2019-01-26] MEDS: POTASSIUM CHLORIDE ER 20 MEQ TAB.ER PO SCH ×2 (10:16→12:20)
--- NOTE | 2019-01-26 12:51 | P.PN ---
Subjective Progress Note Date: 01/26/19 Principal diagnosis: Acute exacerbation of chronic obstructive pulmonary disease with bilateral pleural effusions and probable diastolic congestive heart failure The patient is seen today 01/24/2019 in follow-up in the selective care unit. She is now in respiratory isolation as her pleural fluid came back positive for acid-fast bacilli. Infectious disease is on the case. She remains awake and alert in no significant distress. She is maintaining good O2 saturations in the upper 90s on 3 L/m per nasal cannula. She's afebrile. Hemodynamically stable. Right-sided chest tube remains in place. There is a small leak still. Improved. White count 16.4. Hemoglobin 14.8. Potassium 3.3. Creatinine 1.00. She remains on DuoNeb inhalations, Pulmicort and Perforomist inhalations, IV solu Medrol. She is on IV Lasix. Antibiotics in the form of ceftriaxone and azithromycin. Chest x-ray shows small left pleural effusion minimal right pleural effusion but improved status post thoracentesis, right-sided chest tube in place. No residual pneumothorax. The patient is seen today 01/25/2019 in follow-up on the selective care unit. She is currently awake and alert in no acute distress. Resting comfortably in bed. She is somewhat upset regarding her potential diagnosis. Remains in pulmonary isolation. Pleural fluid positive for acid-fast bacilli. Further cultures are pending. White count 9.9. Hemoglobin 15.4. Creatinine 0.91. She is currently on ceftriaxone and azithromycin. Maintained on DuoNeb inhalations, Pulmicort and Perforomist inhalations. Steroids have been discontinued. The patient is seen today 01/26/2019 in follow-up on the selective care unit. She is breathing easier today. Awake and alert. On 2 L nasal cannula. Follow- up chest x-ray reveals no evidence of right-sided pneumothorax. Chest tube removed today. Follow-up chest x-ray pending. His been afebrile. Hemodynamically stable. Further pleural fluid cultures are pending. Creatinine 0.86. She remains on ceftriaxone and azithromycin. Continued on bronchodilators. Oral diuretics. Heparin for DVT prophylaxis. Objective - Vital Signs Vital signs: Vital Signs Temp 97.7 F 01/26/19 08:00 Pulse 67 01/26/19 10:08 Resp 20 01/26/19 08:00 BP 143/80 01/26/19 08:00 Pulse Ox 97 01/26/19 08:00 Intake & Output 01/25/19 01/26/19 01/26/19 18:59 06:59 18:59 Intake Total 240 240 240 Output Total 1200 400 Balance -960 240 -160 Weight 46.2 kg Intake: Oral 240 240 240 Output: Chest Tube Drainage 0 Chest Tube Right Lateral 0 Chest Urine 1200 400 Other: Voiding Method Toilet # Voids 3 1 - Exam GENERAL EXAM: Alert, pleasant 83-year-old female, comfortable in no apparent distress. On 2 L nasal cannula. HEAD: Normocephalic. EYES: Normal reaction of pupils, equal size. NOSE: Clear with pink turbinates. THROAT: No erythema or exudates. NECK: No masses, no JVD. CHEST: Right-sided subcutaneous emphysema. Right-sided chest tube removed. LUNGS: Equal air entry with crackles in the bilateral posterior bases. CVS: S1 and S2 normal with no audible murmur, regular rhythm. ABDOMEN: No hepatosplenomegaly, normal bowel sounds, no guarding or rigidity. SPINE: No scoliosis or deformity SKIN: No rashes CENTRAL NERVOUS SYSTEM: No focal deficits, tone is normal in all 4 extremities. EXTREMITIES: There is no peripheral edema. No clubbing, no cyanosis. Peripheral pulses are intact. - Labs CBC & Chem 7: 01/25/19 06:00 01/26/19 08:50 Labs: Abnormal Lab Results - Last 24 Hours (Table) 01/25/19 01/25/19 01/26/19 Range/Units 16:45 21:39 08:50 Potassium 3.4 L (3.5-5.1) mmol/L Carbon Dioxide 36 H (22-30) mmol/L BUN 49 H (7-17) mg/dL POC Glucose (mg/dL) 123 H 142 H (75-99) mg/dL Microbiology - Last 24 Hours (Table) 01/22/19 15:45 Gram Stain - Preliminary Pleural Fluid Body Fluid Culture - Preliminary Assessment and Plan Assessment: Impression: #1 Acute exacerbation of chronic obstructive pulmonary disease complicated by suspected bibasilar pneumonia. Possible atypical mycobacterium infection. Status post right-sided thoracentesis with initial fluid positive for acid fast bacilli and is currently on respiratory isolation. Right-sided chest tube removed as chest x-ray shows no pneumothorax. #2 Acute exacerbation of diastolic congestive heart failure and bilateral pleural effusions. #3 Hypertension. #4 History of gastroesophageal reflux disease. #5 History of degenerative joint disease. #6 History of breast cancer status post right-sided mastectomy. #7 His history of heavy tobacco use. Plan: The patient was seen and evaluated by Dr. Thayer. Currently on ceftriaxone an d azithromycin. Adenosine deaminase (ADA) pending. She remains in respiratory isolation. Final cultures pending. Chest x-ray and labs reviewed. No residual pneumothorax noted. Right-sided chest tube removed without incident. Repeat a chest x-ray pending. On oral diuretics. Increase her activity as tolerated. Encouraged the use of the incentive spirometer and cough and deep breathing exercises. We'll continue to follow and make further recommendations based on her clinical status. I, the cosigning physician, performed a history & physical examination of the patient. Lungs sounds crackles in posterior bases. Maintaining good O2 saturations in the 90s on 2 L/m per nasal cannula. I discussed the assessment and plan of care with my nurse practitioner, Cherri Ozuna. I attest to the above note as dictated by her.
[2019-01-26 13:06] VITALS: BMI 18.6
--- NOTE | 2019-01-26 13:19 | P.PN ---
Subjective Progress Note Date: 01/25/19 Patient seen and examined at bedside, reports her breathing is much improved, in that she is doing well off oxygen. Patient underwent thoracentesis with procedural complication right-sided pneumothorax with subsequent chest tube placement. Her chest x-ray today showing small left pleural effusion, patient working with her incentive spirometer only pulling approximately 1500ml. pleural fluid analysis indicating exudative effusion positive for acid-fast bacilli, the patient placed on AFB respiratory/droplet precautions. Serum potassium 3.3, white count 16.6. The patient continues to be afebrile Objective - Vital Signs Vital signs: Vital Signs Temp 98.7 F 01/25/19 12:00 Pulse 83 01/25/19 13:33 Resp 18 01/25/19 12:00 BP 127/78 01/25/19 12:00 Pulse Ox 99 01/25/19 12:00 Intake & Output 01/24/19 01/25/19 01/25/19 18:59 06:59 18:59 Intake Total 1200 240 Output Total 1200 Balance 1200 -960 Weight 46 kg Intake: Oral 1200 240 Output: Chest Tube Drainage 0 Chest Tube Right Lateral 0 Chest Urine 1200 Other: Voiding Method Toilet # Voids 1 1 3 - Exam Constitutional: No acute distress, conversant, pleasant Eyes: Anicteric sclerae, moist conjunctiva, no lid-lag, PERRLA ENMT: NC/AT,Oropharynx clear, no erythema, exudates Neck:Supple, FROM, no masses, or JVD, No carotid bruits; No thyromegaly Lungs: Clear to auscultation, Clear to percussion, Normal respiratory effort, no accessory muscle use Cardiovascular: Heart regular in rate and rhythm, No murmurs, gallops, or rubs no peripheral edema Abdominal: Soft Nontender, nom distended, no guarding, no rebound or rigidity, Normoactive bowel sounds No hepatomegaly, No splenomegaly, No palpable mass No abdominal wall hernia noted Skin: Normal temperature, tone, texture, turgor, No induration No subcutaneous nodules, No rash, lesions, No ulcers Extremities:No digital cyanosis No clubbing, Pedal pulses intact and symmetrical Radial pulses intact and symmetrical Normal gait and station, No calf tenderness Psychiatric: Alert and oriented to person, place and time, Appropriate affect Intact judgement Neuro: Muscles Strength 5/5 in all 4 extremities, Sensation to light touch grossly present throughout, Cranial nerves II-XII grossly intact. No focal sensory deficits - Labs CBC & Chem 7: 01/25/19 06:00 01/26/19 08:50 Labs: Abnormal Lab Results - Last 24 Hours (Table) 01/24/19 01/25/19 01/25/19 Range/Units 20:54 06:00 06:00 Hct 47.7 H (34.0-46.0) % Neutrophils # 7.8 H (1.3-7.7) k/uL Potassium 3.4 L (3.5-5.1) mmol/L Chloride 97 L (98-107) mmol/L Carbon Dioxide 36 H (22-30) mmol/L BUN 43 H (7-17) mg/dL Glucose 135 H (74-99) mg/dL POC Glucose (mg/dL) 128 H (75-99) mg/dL 01/25/19 01/25/19 01/25/19 Range/Units 06:55 11:47 16:45 Hct (34.0-46.0) % Neutrophils # (1.3-7.7) k/uL Potassium (3.5-5.1) mmol/L Chloride (98-107) mmol/L Carbon Dioxide (22-30) mmol/L BUN (7-17) mg/dL Glucose (74-99) mg/dL POC Glucose (mg/dL) 117 H 147 H 123 H (75-99) mg/dL Microbiology - Last 24 Hours (Table) 01/22/19 15:45 Gram Stain - Preliminary Pleural Fluid Body Fluid Culture - Preliminary Assessment and Plan (1) Acute respiratory failure with hypoxia Narrative/Plan: * Likely multifactorial COPD exacerbation superimposed on possible underlying pneumonia and bilateral right greater than left pleural effusion secondary to likely diastolic CHF * Right-sided pneumothorax secondary to thoracentesis currently with right-sided chest tube * Continue current management * Pulmonary consulted appreciated recommendations Current Visit: Yes Status: Acute Code(s): J96.01 - ACUTE RESPIRATORY FAILURE WITH HYPOXIA SNOMED Code(s): 91041398 (2) Acute exacerbation of chronic obstructive airways disease Narrative/Plan: * The patient doing well without any significant wheezes * We'll switch from IV steroids to oral prednisone in the a.m. * Continue bronchodilator DuoNeb breathing treatments Q4/PRN * Continue current antibiotic regimen with Rocephin and azithromycin Current Visit: Yes Status: Acute Code(s): J44.1 - CHRONIC OBSTRUCTIVE PULMONARY DISEASE W (ACUTE) EXACERBATION SNOMED Code(s): 846140110 (3) Acute diastolic CHF (congestive heart failure) Narrative/Plan: * Echocardiogram indicating preserved LVEF of 55-60%, severely dilated left atrium * Moderate pulmonary hypertension, [id number] TR, moderate MR * Continue IV Lasix Current Visit: Yes Status: Acute Code(s): I50.31 - ACUTE DIASTOLIC (CONGESTIVE) HEART FAILURE SNOMED Code(s): 575292546 (4) CAP (community acquired pneumonia) Narrative/Plan: * No signs of sepsis continue antibiotic regimen above Current Visit: Yes Status: Acute Code(s): J18.9 - PNEUMONIA, UNSPECIFIED ORGANISM SNOMED Code(s): 117144210 (5) Essential hypertension Narrative/Plan: * Blood pressure stable on home regimen continue current management Current Visit: Yes Status: Acute Code(s): I10 - ESSENTIAL (PRIMARY) HYPERTENSION SNOMED Code(s): 89902562 (6) Pleural effusion Narrative/Plan: * Continue diuresis for now * Pulmonary following chest ultrasound performed * Noted right greater than left fluid pocket 11 cm versus 6 cm * Exudative effusion cytology pending, + AFB likely to be MAC Current Visit: Yes Status: Acute Code(s): J90 - PLEURAL EFFUSION, NOT ELSEWHERE CLASSIFIED SNOMED Code(s): 41952486 (7) Pneumothorax, postprocedural Narrative/Plan: * Right-sided chest tube in place with positive air leak Current Visit: Yes Status: Acute Code(s): J95.811 - POSTPROCEDURAL PNEUMOTHORAX SNOMED Code(s): 215853639 Plan: Disposition * Continue current management * Anticipated discharge 2 days
--- NOTE | 2019-01-26 13:28 | P.PN ---
Subjective Progress Note Date: 01/26/19 Patient seen and examined at bedside, reports her breathing is much improved, in that she is doing well off oxygen. The patient has no complaints but is excitedly waiting for her chest tube to be removed and for her to be taken off isolation discharged. Continues on respiratory isolation, serum potassium is 3.4. No acute events overnight Objective - Vital Signs Vital signs: Vital Signs Temp 97.7 F 01/26/19 08:00 Pulse 67 01/26/19 10:08 Resp 20 01/26/19 08:00 BP 143/80 01/26/19 08:00 Pulse Ox 97 01/26/19 08:00 Intake & Output 01/25/19 01/26/19 01/26/19 18:59 06:59 18:59 Intake Total 240 240 600 Output Total 1200 400 Balance -960 240 200 Weight 46.2 kg 46.2 kg Intake: Oral 240 240 600 Output: Chest Tube Drainage 0 Chest Tube Right Lateral 0 Chest Urine 1200 400 Other: Voiding Method Toilet # Voids 3 1 - Exam Constitutional: No acute distress, conversant, pleasant Eyes: Anicteric sclerae, moist conjunctiva, no lid-lag, PERRLA ENMT: NC/AT,Oropharynx clear, no erythema, exudates Neck:Supple, FROM, no masses, or JVD, No carotid bruits; No thyromegaly Lungs: Clear to auscultation, Clear to percussion, Normal respiratory effort, no accessory muscle use Cardiovascular: Heart regular in rate and rhythm, No murmurs, gallops, or rubs no peripheral edema Abdominal: Soft Nontender, nom distended, no guarding, no rebound or rigidity, Normoactive bowel sounds No hepatomegaly, No splenomegaly, No palpable mass No abdominal wall hernia noted Skin: Normal temperature, tone, texture, turgor, No induration No subcutaneous nodules, No rash, lesions, No ulcers Extremities:No digital cyanosis No clubbing, Pedal pulses intact and symmetrical Radial pulses intact and symmetrical Normal gait and station, No calf tenderness Psychiatric: Alert and oriented to person, place and time, Appropriate affect Intact judgement Neuro: Muscles Strength 5/5 in all 4 extremities, Sensation to light touch grossly present throughout, Cranial nerves II-XII grossly intact. No focal sensory deficits - Labs CBC & Chem 7: 01/25/19 06:00 01/26/19 08:50 Labs: Abnormal Lab Results - Last 24 Hours (Table) 01/25/19 01/25/19 01/26/19 Range/Units 16:45 21:39 08:50 Potassium 3.4 L (3.5-5.1) mmol/L Carbon Dioxide 36 H (22-30) mmol/L BUN 49 H (7-17) mg/dL POC Glucose (mg/dL) 123 H 142 H (75-99) mg/dL Microbiology - Last 24 Hours (Table) 01/22/19 15:45 Gram Stain - Preliminary Pleural Fluid Body Fluid Culture - Preliminary Assessment and Plan (1) Acute respiratory failure with hypoxia Narrative/Plan: * Likely multifactorial COPD exacerbation superimposed on possible underlying pneumonia and bilateral right greater than left pleural effusion secondary to likely diastolic CHF * Right-sided pneumothorax secondary to thoracentesis currently with right-sided chest tube * Continue current management * Pulmonary consulted appreciated recommendations Current Visit: Yes Status: Acute Code(s): J96.01 - ACUTE RESPIRATORY FAILURE WITH HYPOXIA SNOMED Code(s): 83120510 (2) Acute exacerbation of chronic obstructive airways disease Narrative/Plan: * The patient doing well without any significant wheezes * We'll switch from IV steroids to oral prednisone in the a.m. * Continue bronchodilator DuoNeb breathing treatments Q4/PRN * Continue current antibiotic regimen with Rocephin and azithromycin Current Visit: Yes Status: Acute Code(s): J44.1 - CHRONIC OBSTRUCTIVE PULMONARY DISEASE W (ACUTE) EXACERBATION SNOMED Code(s): 726228624 (3) Acute diastolic CHF (congestive heart failure) Narrative/Plan: * Echocardiogram indicating preserved LVEF of 55-60%, severely dilated left atrium * Moderate pulmonary hypertension, [id number] TR, moderate MR * Continue IV Lasix Current Visit: Yes Status: Acute Code(s): I50.31 - ACUTE DIASTOLIC (CONGESTIVE) HEART FAILURE SNOMED Code(s): 726899283 (4) CAP (community acquired pneumonia) Narrative/Plan: * No signs of sepsis continue antibiotic regimen above Current Visit: Yes Status: Acute Code(s): J18.9 - PNEUMONIA, UNSPECIFIED ORGANISM SNOMED Code(s): 721502652 (5) Essential hypertension Narrative/Plan: * Blood pressure stable on home regimen continue current management Current Visit: Yes Status: Acute Code(s): I10 - ESSENTIAL (PRIMARY) HYPERTENSION SNOMED Code(s): 87403590 (6) Pleural effusion Narrative/Plan: * Continue diuresis for now * Pulmonary following chest ultrasound performed * Noted right greater than left fluid pocket 11 cm versus 6 cm * Exudative effusion cytology pending, + AFB likely to be MAC Current Visit: Yes Status: Acute Code(s): J90 - PLEURAL EFFUSION, NOT ELSEWHERE CLASSIFIED SNOMED Code(s): 75383009 (7) Pneumothorax, postprocedural Narrative/Plan: * Right-sided chest tube in place with positive air leak Current Visit: Yes Status: Acute Code(s): J95.811 - POSTPROCEDURAL PNEUMOTHORAX SNOMED Code(s): 198078018 (8) Hypokalemia Narrative/Plan: * Secondary to Lasix initiated on daily potassium replacement Current Visit: Yes Status: Acute Code(s): E87.6 - HYPOKALEMIA SNOMED Code(s): 25151103 Plan: Disposition * Continue current management * Anticipated discharge 1-2 days
--- NOTE | 2019-01-26 14:36 | XR ---
EXAMINATION TYPE: XR chest 1V portable DATE OF EXAM: 01/26/2019 COMPARISON: 01/26/2019 6:58 AM HISTORY: History of right-sided pneumothorax. Chest tube removal. TECHNIQUE: Single frontal view of the chest is obtained. FINDINGS: There is been interval removal of the right thoracostomy tube. Strand-like right basilar a telectasis is seen. Trace right apical pneumothorax. This is estimated at approximately 5%. There rem ains a small left pleural effusion and left basilar airspace disease with shifting the mediastinum le ftward. Diffuse osseous demineralization. No left-sided pneumothorax. IMPRESSION: Removal of the thoracostomy tube with trace right apical pneumothorax remaining estimate d approximately 5%. Stable left pleural effusion and left basilar airspace disease. Strand-like radiu s by atelectasis.
--- NOTE | 2019-01-26 21:44 | P.PN ---
Subjective Progress Note Date: 01/26/19 Pleasant 83-year-old woman presents to hospital with a several-day history of increasing shortness of breath. She relates that she was doing very well until June of this year. She was able to accomplish all her activities around her home and activities outside of the home without significant trouble. She became ill in June and had the severe viral infection that was quite common during that respiratory season. And although she recovered from fevers and chills she never recovered her baseline pulmonary status. She is struggling ever since with shortness of breath, dyspnea with exertion and feeling weak and tired. She was treated with an inhaler but does not believe that allowed much improvement. Because of her ongoing symptoms she had outpatient pulmonary function test that appears to reveal evidence of significant COPD with the diffusion defect. She now presents with progressive shortness of breath having difficulties with shortness of breath at rest and any activity and constantly presented to the emergency center. X-ray revealed evidence of bilateral effusions right greater than left in consolidative changes related to the effusions. She was seen bipolar critical care and a thoracentesis was performed however she had evidence of some pneumothorax requiring evidence of the chest tube. She fortunately is not having much pain with the chest tube and her profound shortness of breath is actually quite a bit improved especially from several days ago. She denies hemoptysis. She has no history of tuberculosis, parents did not have tuberculosis, never had any family members in a TB sanitarium. She has not been a traveler and has never been outside of the [facility], routinely stays only in the [facility]. 01/26/2019 the patient is feeling better. She is much less short of breath. She is up walking to the bathroom without shortness of breath. Went to the restroom and does feel the best she has in quite some time Objective - Vital Signs Vital signs: Vital Signs Temp 98 F 01/26/19 16:00 Pulse 78 01/26/19 19:31 Resp 20 01/26/19 16:00 BP 137/75 01/26/19 16:00 Pulse Ox 98 01/26/19 16:51 Intake & Output 01/26/19 01/26/19 01/27/19 06:59 18:59 06:59 Intake Total 240 840 Output Total 900 Balance 240 -60 Weight 46.2 kg 46.2 kg Intake: Oral 240 840 Output: Urine 900 Other: Voiding Method Toilet Toilet # Voids 1 # Bowel Movements 3 - Exam 83-year-old woman of a very thin build HEENT: Anicteric conjunctiva are pink and moist nasal mucosa grossly intact without significant lesions, there is no thrush. Neck: The neck is supple without significant lymphadenopathy or thyromegaly. Lungs: Symmetrical entry is noted however there are crackles in the right base. There are a few expiratory wheezes that are scattered no bronchial sounds Heart: Regular rate and rhythm with an audible S1-S2, no S3 no S4. There is no significant murmur click or rub, PMI was nondisplaced. Abdomen: Positive bowel sounds soft and nontender without palpable masses or organomegaly. There was no guarding or rebound. Extremities: The upper extremities have excellent pulses they are symmetric, no significant petechiae or telangiectasia. No splinter hemorrhages were noted. The lower extremities are free from significant edema. The peripheral pulses were 2+ and symmetric. Neuro: Awake alert oriented to person place and time. There are no acute new gross focal sensory motor deficits. Chest tube site of the right anterior chest wall is without drainage - Labs CBC & Chem 7: 01/25/19 06:00 01/26/19 08:50 Labs: Abnormal Lab Results - Last 24 Hours (Table) 01/25/19 01/26/19 Range/Units 21:39 08:50 Potassium 3.4 L (3.5-5.1) mmol/L Carbon Dioxide 36 H (22-30) mmol/L BUN 49 H (7-17) mg/dL POC Glucose (mg/dL) 142 H (75-99) mg/dL Microbiology - Last 24 Hours (Table) 01/22/19 15:45 Gram Stain - Final Pleural Fluid Body Fluid Culture - Final Laboratory Results WBC 9.9 k/uL (3.8-10.6) 01/25/19 06:00 RBC 4.83 m/uL (3.80-5.40) 01/25/19 06:00 Hgb 15.4 gm/dL (11.4-16.0) 01/25/19 06:00 Hct 47.7 % (34.0-46.0) H 01/25/19 06:00 MCV 98.9 fL (80.0-100.0) 01/25/19 06:00 MCH 31.9 pg (25.0-35.0) 01/25/19 06:00 MCHC 32.2 g/dL (31.0-37.0) 01/25/19 06:00 RDW 13.0 % (11.5-15.5) 01/25/19 06:00 Plt Count 252 k/uL (150-450) 01/25/19 06:00 Neutrophils % 79 % 01/25/19 06:00 Lymphocytes % 17 % 01/25/19 06:00 Monocytes % 3 % 01/25/19 06:00 Eosinophils % 0 % 01/25/19 06:00 Basophils % 0 % 01/25/19 06:00 Neutrophils # 7.8 k/uL (1.3-7.7) H 01/25/19 06:00 Lymphocytes # 1.7 k/uL (1.0-4.8) 01/25/19 06:00 Monocytes # 0.3 k/uL (0-1.0) 01/25/19 06:00 Eosinophils # 0.0 k/uL (0-0.7) 01/25/19 06:00 Basophils # 0.0 k/uL (0-0.2) 01/25/19 06:00 PT 10.8 sec (9.0-12.0) 01/21/19 13:25 INR 1.0 (<1.2) 01/21/19 13:25 APTT 22.2 sec (22.0-30.0) 01/21/19 13:25 D-Dimer 1.25 mg/L FEU (<0.60) H 01/21/19 13:25 Sodium 142 mmol/L (137-145) 01/26/19 08:50 Potassium 3.4 mmol/L (3.5-5.1) L 01/26/19 08:50 Chloride 99 mmol/L (98-107) 01/26/19 08:50 Carbon Dioxide 36 mmol/L (22-30) H 01/26/19 08:50 Anion Gap 7 mmol/L 01/26/19 08:50 BUN 49 mg/dL (7-17) H 01/26/19 08:50 Creatinine 0.86 mg/dL (0.52-1.04) 01/26/19 08:50 Est GFR (CKD-EPI)AfAm 72 (>60 ml/min/1.73 sqM) 01/26/19 08:50 Est GFR (CKD-EPI)NonAf 63 (>60 ml/min/1.73 sqM) 01/26/19 08:50 Glucose 91 mg/dL (74-99) 01/26/19 08:50 POC Glucose (mg/dL) 142 mg/dL (75-99) H 01/25/19 21:39 POC Glu [employer] Tech Denita Sheppard 01/25/19 21:[address] Glu mg/dL 137 01/22/19 06:34 Hemoglobin A1c 6.4 % (4.0-6.0) H 01/22/19 06:34 Calcium 9.5 mg/dL (8.4-10.2) 01/26/19 08:50 Magnesium 2.2 mg/dL (1.6-2.3) 01/25/19 06:00 Total Bilirubin 0.7 mg/dL (0.2-1.3) 01/21/19 13:25 AST 55 U/L (14-36) H 01/21/19 13:25 ALT 47 U/L (9-52) 01/21/19 13:25 Alkaline Phosphatase 64 U/L (38-126) 01/21/19 13:25 Troponin I <0.012 ng/mL (0.000-0.034) 01/21/19 13:28 NT-Pro-B Natriuret Pep 940 pg/mL 01/21/19 13:25 Total Protein 6.2 g/dL (6.3-8.2) L 01/21/19 13:25 Albumin 4.1 g/dL (3.5-5.0) 01/21/19 13:25 Fluid Source Pleural 01/22/19 15:45 Fluid Color Yellow 01/22/19 15:45 Fluid Appearance Cloudy 01/22/19 15:45 Fluid RBC 9360 /uL 01/22/19 15:45 Fluid Nucleated Cells 2540 /uL 01/22/19 15:45 Fluid Polynuclear WBCs 12 % 01/22/19 15:45 Fluid Mononuclear WBCs 88 % 01/22/19 15:45 Body Fluid Glucose Source Pleural Fluid 01/22/19 15:45 Fluid Glucose 74 mg/dL 01/22/19 15:45 Body Fluid Protein Source Pleural Fluid 01/22/19 15:45 Fluid Total Protein 3840.0 mg/dL 01/22/19 15:45 Body Fluid LDH Source Pleural Fluid 01/22/19 15:45 Fluid LDH 1278 U/L 01/22/19 15:45 Microbiology 01/22/19 15:45 Pleural Fluid Gram Stain - Final 01/22/19 15:45 Pleural Fluid Body Fluid Culture - Final 01/22/19 15:45 Pleural Fluid Acid Fast Bacilli Smear - Preliminary 01/22/19 15:45 Pleural Fluid Acid Fast Bacilli Culture - Preliminary Acid fast bacilli isolated 01/22/19 15:45 Pleural Fluid Fungal Culture - Preliminary Assessment and Plan (1) Acute exacerbation of chronic obstructive airways disease Current Visit: Yes Status: Acute Code(s): J44.1 - CHRONIC OBSTRUCTIVE PULMONARY DISEASE W (ACUTE) EXACERBATION SNOMED Code(s): 297187619 (2) Pleural effusion Narrative/Plan: 83-year-old female presents to Hospital with progressive shortness of breath is evidence of an exacerbation of COPD and notation of pleural effusion and secondary consolidation. Because she was very symptomatic thoracentesis was performed however had a pneumothorax the chest tube is in place. She for she has not having much pain in his related that with the chest tube in place she is able to ambulate to the restroom without significant and severe dyspnea on exertion as she was having before and neck she was she was dyspneic at rest which has resolved. Routine testing of the fluid is been performed and the acid-fast smear has come back positive for acid-fast bacilli. The patient has no known history of tuberculosis, her chest x-ray shows no evidence of granulomatous disease, there is no evidence of any calcified lymph nodes, and she has no family history or exposure to tuberculosis. 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 The patient is in appropriate negative pressure isolation at this time until further data is available. Fortunately is noted she is feeling better. Hopefully the next short period of time the probes will be available to identify the species of Mycobacterium. Once available we'll be able to initiate therapy which I believe is required given her symptomatic pleural effusions. In the meantime continue the treatments for exacerbation of COPD with the effusions and we shall monitor. 01/26/2019 the patient is feeling considerably better. Chest tube was removed and she is stable. No further pneumothorax is occurring. Her shortness of breath is improved. She is able to navigate her room without any difficulties with shortness of breath. Of note they do receive a call from the infection prevention nurse and there is evidence of no mycobacterium avium complex or Mycobacterium tuberculosis complex. Isolation can be removed. Concern this could be a different infection with modified acid fast bacilli such as Nocardia. Cultures will help direct. Current Visit: Yes Status: Acute Code(s): J90 - PLEURAL EFFUSION, NOT ELSEWHERE CLASSIFIED SNOMED Code(s): 57187789 (3) Pneumothorax, postprocedural Current Visit: Yes Status: Acute Code(s): J95.811 - POSTPROCEDURAL PNEUMOTHO RAX SNOMED Code(s): 865127353
[2019-01-27] MEDS: PANTOPRAZOLE 40 MG TABLET PO SCH (06:18)
[2019-01-27 07:00] LABS: Calcium 9.2 mg/dL (8.4-10.2)
[2019-01-27] MEDS: IPRATROPIUM-ALBUTEROL 3 ML NEB INHALATION SCH ×3 (07:32→15:34)
[2019-01-27] MEDS: BUDESONIDE 1 MG/2 ML NEBU INHALATION SCH (07:32)
[2019-01-27] MEDS: FORMOTEROL FUMARATE 20 MCG/2 ML NEBU INHALATION SCH (07:32)
[2019-01-27] MEDS: MULTIVITAMINS, THERA 1 EACH TAB PO SCH (08:11)
[2019-01-27] MEDS: LOSARTAN 50 MG TAB PO SCH (08:11)
[2019-01-27] MEDS: FUROSEMIDE 40 MG TAB PO SCH (08:11)
[2019-01-27] MEDS: HEPARIN SODIUM,PORCINE 5,000 UNIT/ML 1 ML VIAL SQ SCH (08:12)
[2019-01-27] MEDS: ASPIRIN 81 MG PO SCH (08:15)
[2019-01-27 08:22] VITALS: BP 120/55; RESP 16; TEMP 97.9
[2019-01-27] MEDS: AZITHROMYCIN 250 MG TAB PO SCH (08:59)
[2019-01-27] MEDS ORDERED: POTASSIUM CHLORIDE ER 20 MEQ TAB.ER PO SCH (09:00)
--- NOTE | 2019-01-27 14:10 | XR ---
EXAMINATION TYPE: XR chest 1V DATE OF EXAM: 01/27/2019 COMPARISON: 01/26/2019 HISTORY: Follow-up for pneumothorax. TECHNIQUE: Single frontal view of the chest is obtained. FINDINGS: There remains a trace loculated right apical lateral pneumothorax. Minimal subcutaneous em physema is also seen along the right lateral chest wall. Trace right and small left pleural effusions and bibasilar airspace disease. Leftward mediastinal shift remains. Underlying COPD with biapical xin cency. Cardiomediastinal silhouette is obscured. Generalized osseous demineralization is seen. IMPRESSION: Trace right apical pneumothorax is similar in degree to the prior ostomy and approximate ly 5%, now appearing loculated. Otherwise stable exam.
--- NOTE | 2019-01-27 14:41 | P.DS ---
Providers Date of admission: 01/21/19 16:11 Expected date of discharge: 01/27/19 Attending physician: Garrett Trivedi MD Consults: 01/21/19 18:30 Consult Physician Routine Consulting Provider: Sadia Thayer Consult Reason/Comments: COPD Do you want consulting provider notified?: Yes 01/23/19 19:10 Consult Physician Routine Consulting Provider: Geronimo Fairbanks Consult Reason/Comments: patient positive for afb Do you want consulting provider notified?: Yes Primary care physician: Colt Fernandez - Discharge Diagnosis(es) (1) Acute respiratory failure with hypoxia Current Visit: Yes Status: Acute (2) Acute exacerbation of chronic obstructive airways disease Current Visit: Yes Status: Acute (3) Acute diastolic CHF (congestive heart failure) Current Visit: Yes Status: Acute (4) CAP (community acquired pneumonia) Current Visit: Yes Status: Acute (5) Essential hypertension Current Visit: Yes Status: Acute (6) Pleural effusion Current Visit: Yes Status: Acute (7) Pneumothorax, postprocedural Current Visit: Yes Status: Acute (8) Hypokalemia Current Visit: Yes Status: Acute Hospital Course: The patient is a 83-year-old female with a past focal history of essential hypertension, recently diagnosed COPD and a former smoker that was admitted with acute respiratory failure with hypoxia, multifactorial etiology secondary to an acute COPD exacerbation, acute diastolic CHF with subsequent pleural effusion and pneumonia. On admission she was placed on supplemental oxygen at 2 L and she was started on empiric IV antibiotics with Rocephin and azithromycin and initiated on scheduled and PRN elevated DuoNeb breathing treatments, inhaled Perforomist and systemic steroids with Solu-Medrol. On admission the patient was noted to have elevated d-dimer subsequent CTA of the chest was negative for PE but showed bilateral consolidation and pleural effusion, subsequent chest ultrasound indicated right greater than left pleural effusion at 11 versus 6.9 cm pocket size respectively. Pulmonary was consulted for thoracentesis that was performed at bedside and pleural fluid was sent for analysis. The patient developed postprocedural pneumothorax on the right and subsequently had to have a chest tube placed. Appropriate analysis was positive for AFB and the patient was placed on appropriate negative pressure isolation due to concern for underlying TB. negative pressure isolation was lifted after results were negative for Mycobacterium avium complex or Mycobacterium to tuberculosis complex. Echocardiogram indicated a preserved LVEF of 55-60% with a severely dilated left atrium, moderate pulmonary hypertension mild to moderate TR and moderate MR and the patient was diuresed with IV Lasix and transitioned to oral Lasix with daily potassium supplementation to correct him prevent further hypokalemia. The patient was able to qualify for oxygen and she dropped to 85% on room air with ambulation. Case management to arrange 2 L of nasal cannula for the patient. The patient was discharged home in stable condition and instructed to follow-up with pulmonary and her PCP. This discharge process was approximately 35 minutes. Focused exam Respiratory: Clear to auscultation bilaterally Cardiac: Regular rate and rhythm no murmurs or gallops Patient Condition at Discharge: Good Plan - Discharge Summary Discharge Rx Participant: Yes New Discharge Prescriptions: New Sulfamethox-Tmp 800-160Mg [Bactrim DS 800-160 mg] 1 tab PO Q12HR #28 tab Potassium Chloride ER [K-Dur 20] 40 meq PO DAILY #30 tab.er.prt Furosemide [Lasix] 40 mg PO DAILY #30 tab predniSONE 10 mg PO DAILY #30 tab Budesonide-Formot 160-4.5 Mcg [Symbicort 160-4.5 Mcg Inhaler] 2 puff INHALATION BID #1 inhaler Albuterol Inhaler [Ventolin Hfa Inhaler] 1 - 2 puff INHALATION RT-Q6H PRN #1 inhaler PRN Reason: difficulty breathing/cough Continue Losartan [Cozaar] 50 mg PO DAILY Aspirin 162 mg PO DAILY Umeclidinium Brm/Vilanterol Tr [Anoro Ellipta 62.5-25 Mcg INH] 1 puff INHALATION RT-DAILY Multivitamins, Thera [Multivitamin (formulary)] 1 tab PO DAILY Discharge Medication List Aspirin 162 mg PO DAILY 11/05/13 [History] Losartan [Cozaar] 50 mg PO DAILY 11/05/13 [History] Multivitamins, Thera [Multivitamin (formulary)] 1 tab PO DAILY 01/21/19 [ History] Umeclidinium Brm/Vilanterol Tr [Anoro Ellipta 62.5-25 Mcg INH] 1 puff INHALATION RT-DAILY 01/21/19 [History] Albuterol Inhaler [Ventolin Hfa Inhaler] 1 - 2 puff INHALATION RT-Q6H PRN #1 inhaler 01/27/19 [Rx] Budesonide-Formot 160-4.5 Mcg [Symbicort 160-4.5 Mcg Inhaler] 2 puff INHALATION BID #1 inhaler 01/27/19 [Rx] Furosemide [Lasix] 40 mg PO DAILY #30 tab 01/27/19 [Rx] Potassium Chloride ER [K-Dur 20] 40 meq PO DAILY #30 tab.er.prt 01/27/19 [Rx] Sulfamethox-Tmp 800-160Mg [Bactrim DS 800-160 mg] 1 tab PO Q12HR #28 tab 01/27/19 [Rx] predniSONE 10 mg PO DAILY #30 tab 01/27/19 [Rx] Follow up Appointment(s)/Referral(s): Colt Fernandez MD [Primary Care Provider] - 01/29/19 9:30 am (Friday) Cherri Ozuna NPC [Nurse Practitioner] - 02/10/19 2:45 pm (Friday) [facility], [NON-STAFF] - Patient Instructions/Handouts: COPD (Chronic Obstructive Pulmonary Disease) (DC) Discharge Disposition: HOME SELF-CARE
[2019-01-27 15:36] VITALS: PULSE 65
--- NOTE | 2019-01-27 16:33 | P.PN ---
Subjective Progress Note Date: 01/27/19 Principal diagnosis: Acute exacerbation of chronic obstructive pulmonary disease with bilateral pleural effusions and probable diastolic congestive heart failure The patient is seen today 01/24/2019 in follow-up in the selective care unit. She is now in respiratory isolation as her pleural fluid came back positive for acid-fast bacilli. Infectious disease is on the case. She remains awake and alert in no significant distress. She is maintaining good O2 saturations in the upper 90s on 3 L/m per nasal cannula. She's afebrile. Hemodynamically stable. Right-sided chest tube remains in place. There is a small leak still. Improved. White count 16.4. Hemoglobin 14.8. Potassium 3.3. Creatinine 1.00. She remains on DuoNeb inhalations, Pulmicort and Perforomist inhalations, IV solu Medrol. She is on IV Lasix. Antibiotics in the form of ceftriaxone and azithromycin. Chest x-ray shows small left pleural effusion minimal right pleural effusion but improved status post thoracentesis, right-sided chest tube in place. No residual pneumothorax. The patient is seen today 01/25/2019 in follow-up on the selective care unit. She is currently awake and alert in no acute distress. Resting comfortably in bed. She is somewhat upset regarding her potential diagnosis. Remains in pulmonary isolation. Pleural fluid positive for acid-fast bacilli. Further cultures are pending. White count 9.9. Hemoglobin 15.4. Creatinine 0.91. She is currently on ceftriaxone and azithromycin. Maintained on DuoNeb inhalations, Pulmicort and Perforomist inhalations. Steroids have been discontinued. The patient is seen today 01/26/2019 in follow-up on the selective care unit. She is breathing easier today. Awake and alert. On 2 L nasal cannula. Follow- up chest x-ray reveals no evidence of right-sided pneumothorax. Chest tube removed today. Follow-up chest x-ray pending. His been afebrile. Hemodynamically stable. Further pleural fluid cultures are pending. Creatinine 0.86. She remains on ceftriaxone and azithromycin. Continued on bronchodilators. Oral diuretics. Heparin for DVT prophylaxis. The patient is seen today 01/27/2019 in follow-up on the selective care unit. She is awake and alert in no acute distress. Sitting up at the bedside. Right- sided chest tube was removed yesterday. Chest x-ray reveals trace less than 5% residual pneumothorax. He is maintaining O2 saturations in the mid 90s on 2 L/m per nasal cannula. She's been afebrile. Hemodynamically stable. Infectious disease has discontinued her isolation precautions. Sodium 142. Potassium 4.0. Creatinine 0.77. He maintains ceftriaxone and azithromycin. Continued on D uoNeb inhalations, Pulmicort and Perforomist inhalations. She is feeling back to her baseline and hoping to go home. Objective - Vital Signs Vital signs: Vital Signs Temp 97.9 F 01/27/19 08:00 Pulse 64 01/27/19 11:37 Resp 16 01/27/19 11:59 BP 120/55 01/27/19 08:00 Pulse Ox 95 01/27/19 08:00 Intake & Output 01/26/19 01/27/19 01/27/19 18:59 06:59 18:59 Intake Total 840 240 Output Total 900 Balance -60 240 Weight 46.2 kg 47.9 kg Intake: Oral 840 240 Output: Urine 900 Other: Voiding Method Toilet Toilet Toilet # Voids 2 1 # Bowel Movements 3 - Exam GENERAL EXAM: Alert, pleasant 83-year-old female, comfortable in no apparent distress. On 2 L nasal cannula. HEAD: Normocephalic. EYES: Normal reaction of pupils, equal size. NOSE: Clear with pink turbinates. THROAT: No erythema or exudates. NECK: No masses, no JVD. CHEST: Right-sided subcutaneous emphysema. Right-sided chest tube removed. LUNGS: Equal air entry with crackles in the bilateral posterior bases. CVS: S1 and S2 normal with no audible murmur, regular rhythm. ABDOMEN: No hepatosplenomegaly, normal bowel sounds, no guarding or rigidity. SPINE: No scoliosis or deformity SKIN: No rashes CENTRAL NERVOUS SYSTEM: No focal deficits, tone is normal in all 4 extremities. EXTREMITIES: There is no peripheral edema. No clubbing, no cyanosis. Periph eral pulses are intact. - Labs CBC & Chem 7: 01/25/19 06:00 01/27/19 06:01 Labs: Abnormal Lab Results - Last 24 Hours (Table) 01/27/19 Range/Units 06:01 Carbon Dioxide 39 H (22-30) mmol/L BUN 44 H (7-17) mg/dL Microbiology - Last 24 Hours (Table) 01/22/19 15:45 Gram Stain - Final Pleural Fluid Body Fluid Culture - Final Assessment and Plan Assessment: Impression: #1 Acute exacerbation of chronic obstructive pulmonary disease complicated by suspected bibasilar pneumonia. Status post right-sided thoracentesis with initial fluid positive for acid fast bacilli and now had been removed from respiratory per infectious disease. Right-sided chest tube removed as chest x- ray shows no pneumothorax. Today's follow-up chest x-ray shows minimal less than 5% residual pneumothorax. 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 #2 Acute exacerbation of diastolic congestive heart failure and bilateral pleural effusions. #3 Hypertension. #4 History of gastroesophageal reflux disease. #5 History of degenerative joint disease. #6 History of breast cancer status post right-sided mastectomy. #7 His history of heavy tobacco use. Plan: The patient was seen and evaluated by Dr. Thayer. Chest x-ray and labs reviewed. 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 The patient has been discharged and the results were discussed with the patient's granddaughter who is a nurse here at hospital. She will assure follow-up with oncology in the outpatient setting. She will also follow up with our office in 1-2 weeks' time. She is encouraged to call sooner with any recurrence of symptoms or other questions or concerns. I, the cosigning physician, performed a history & physical examination of the patient. Lungs sounds crackles in posterior bases on the left greater than right. Maintaining good O2 saturations in the 90s on room air. I discussed the assessment and plan of care with my nurse practitioner, Cherri Ozuna. I attest to the above note as dictated by her.
== END 2019-01-27 16:14 | disposition home health service (06) | DRG 190 ==
LOC: EC 12:00 → 3SCARD 16:11
PROVIDERS: ADMIT Family Medicine; ATTEND Family Medicine
PROC: 0W993ZZ Drainage of Right Pleural Cavity, Percutaneous Approach (ICD-10-PCS; principal; 2019-01-22)
DX: J43.9 Emphysema, unspecified (principal); I50.33 Acute on chronic diastolic (congestive) heart failure; J18.9 Pneumonia, unspecified organism; J96.01 Acute respiratory failure with hypoxia; J93.82 Other air leak; C56.9 Malignant neoplasm of unspecified ovary; J91.0 Malignant pleural effusion; I27.20 Pulmonary hypertension, unspecified; I11.0 Hypertensive heart disease with heart failure; I08.1 Rheumatic disorders of both mitral and tricuspid valves; C54.1 Malignant neoplasm of endometrium; E87.6 Hypokalemia; F41.9 Anxiety disorder, unspecified; I49.3 Ventricular premature depolarization; K21.9 Gastro-esophageal reflux disease without esophagitis; T50.1X5A Adverse effect of loop [high-ceiling] diuretics, initial encounter; I49.9 Cardiac arrhythmia, unspecified; M19.90 Unspecified osteoarthritis, unspecified site; Z79.82 Long term (current) use of aspirin; Z79.899 Other long term (current) drug therapy; Z90.49 Acquired absence of other specified parts of digestive tract; Z90.11 Acquired absence of right breast and nipple; Z85.3 Personal history of malignant neoplasm of breast; Z87.891 Personal history of nicotine dependence; Z98.51 Tubal ligation status; Z80.9 Family history of malignant neoplasm, unspecified
CPT/HCPCS: 36415; 71045; 71046; 71275; 76604; 80048; 80053; 82945; 83036; 83615; 83735; 83880; 84157; 84484; 85025; 85379; 85610; 85730; 87070; 87102; 87116; 87205; 87206; 87252; 87496; 87498; 87502; 87529; 87634; 87798; 88108; 88305; 88341; 88342; 89050; 93005; 93306; 94640; 94760; 96374; 99285

== ENCOUNTER → 2019-01-29 | Outpatient (CLI) | payer MEDICARE, OTHER ==
--- NOTE | 2019-01-29 15:34 | CT ---
EXAMINATION TYPE: CT abdomen pelvis wo con DATE OF EXAM: 01/29/2019 COMPARISON: Chest x-ray 01/27/2019 HISTORY: ovarian mass CT DLP: 213 mGycm Automated exposure control for dose reduction was used. TECHNIQUE: Helical acquisition of images from the lung bases through the pelvis. Patient received or al contrast. FINDINGS: Lack of contrast could compromise sensitivity. Coronary artery calcifications are present. LUNG BASES: The right-sided pneumothorax, hydropneumothorax is confirmed at the right lung base. Ther e are nodular pleural deposits present anteriorly in the right lower chest, bibasilar effusions are p resent with associated atelectatic change. AORTA: Atheromatous changes are present. No aneurysm. LIVER/GB: No significant abnormality is appreciated. PANCREAS: No significant abnormality is seen. SPLEEN: No significant abnormality is seen. ADRENALS: No significant abnormality is seen. KIDNEYS: No significant abnormality is seen. REPRODUCTIVE ORGANS: Bulky appearance to the right ovary, soft tissue density is present, lesion yahaira sures approximately 4 cm in size. Uterus within normal limits. Left ovary is unremarkable. URINARY BLADDER: No significant abnormality is seen. BOWEL: No significant abnormality is seen. FREE AIR: No Free Air is visible. ASCITES: None visible. PELVIC ADENOPATHY: None visualized. RETROPERITONEAL ADENOPATHY: No Retroperitoneal Adenopathy visible. OSSEOUS STRUCTURES: No significant abnormality is seen. IMPRESSION: INDETERMINATE RIGHT OVARIAN MASS. DIFFICULT TO EXCLUDE PLEURAL METASTASIS. PERSISTENT RIGHT HYDROPNEU MOTHORAX, BILATERAL PLEURAL EFFUSIONS ARE PRESENT. Noncontrast exam.
== END | disposition home or self-care (01) ==
LOC: RADCTMAIN 13:11
PROVIDERS: ATTEND Internal Medicine
DX: N83.8 Other noninflammatory disorders of ovary, fallopian tube and broad ligament (principal)
CPT/HCPCS: 86304; 82565; 84520; 74176; 36415; Q9967

== ENCOUNTER 2019-02-01 12:18 | Inpatient (IN) | payer MEDICARE, OTHER ==
[2019-02-01] MEDS ORDERED: SODIUM CHLORIDE 0.9% 1,000 ML IV ONE ×2 (14:04→18:12)
[2019-02-01] MEDS ORDERED: DIPHENOX-ATROP STARTER PACK 8 TAB BTL PO STA (14:05)
--- NOTE | 2019-02-01 14:09 | ED ---
General Adult HPI - General Chief complaint: Weakness Stated complaint: no appetite/diarrhea/weakness Time Seen by Provider: 02/01/19 12:50 Source: patient, RN notes reviewed Mode of arrival: wheelchair Limitations: no limitations - History of Present Illness Initial comments: This is an 83-year-old female presents emergency Department with the complaint of diarrhea. 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 Patient states ever since he left the hospital she's had watery diarrhea. Patient states it does not smell bad. Patient denies any fever. Patient denies abdominal pain. Family states she is losing weight because she is having some diarrhea. Family also states she's not eating very much. There's been no fever or chills. Patient has had no chest pain difficulty breathing shortness of breath. They basically brought her in today because of the chronic diarrhea and the fact that they could not see her primary medical care doctor because he is out of town. - Related Data Home Medications Medication Instructions Recorded Confirmed Aspirin 162 mg PO DAILY 11/05/13 02/01/19 Losartan [Cozaar] 50 mg PO DAILY 11/05/13 02/01/19 Multivitamins, Thera [Multivitamin 1 tab PO DAILY 01/21/19 02/01/19 (formulary)] Umeclidinium Brm/Vilanterol Tr 1 puff INHALATION RT-DAILY 01/21/19 02/01/19 [Anoro Ellipta 62.5-25 Mcg INH] Budesonide-Formot 160-4.5 Mcg 2 puff INHALATION RT-BID 02/01/19 02/01/19 [Symbicort 160-4.5 Mcg Inhaler] predniSONE See Taper PO DAILY 02/01/19 02/01/19 Previous Rx's Medication Instructions Recorded Albuterol Inhaler [Ventolin Hfa 1 - 2 puff INHALATION RT-Q6H PRN 01/27/19 Inhaler] #1 inhaler Furosemide [Lasix] 40 mg PO DAILY #30 tab 01/27/19 Potassium Chloride ER [K-Dur 20] 40 meq PO DAILY #30 tab.er.prt 01/27/19 Allergies Allergy/AdvReac Type Severity Reaction Status Date / Time No Known Allergies Allergy Verified 08/19/19 13:06 Review of Systems ROS Statement: Those systems with pertinent positive or pertinent negative responses have been documented in the HPI. ROS Other: All systems not noted in ROS Statement are negative. Past Medical History Past Medical History: COPD, Hypertension, Osteoarthritis (OA) Additional Past Medical History / Comment(s): emphysema; irreg heart rate History of Any Multi-Drug Resistant Organisms: None Reported Past Surgical History: Appendectomy, Heart Catheterization, Tonsillectomy, Tubal Ligation Additional Past Surgical History / Comment(s): rt breast lumpectomy Past Anesthesia/Blood Transfusion Reactions: No Reported Reaction Past Psychological History: Anxiety Smoking Status: Former smoker Past Alcohol Use History: Occasional Past Drug Use History: None Reported - Past Family History Sister(s) Family Medical History: Cancer General Exam - General Exam Comments Initial Comments: GENERAL: Patient is well-developed and well-nourished. Patient is nontoxic and well- hydrated and is in mild distress. ENT: Neck is soft and supple. No significant lymphadenopathy is noted. Oropharynx is clear. Moist mucous membranes. Neck has full range of motion without eliciting any pain. EYES: The sclera were anicteric and conjunctiva were pink and moist. Extraocular movements were intact and pupils were equal round and reactive to light. Eyelids were unremarkable. PULMONARY: Unlabored respirations. Good breath sounds bilaterally. No audible rales rhonchi or wheezing was noted. CARDIOVASCULAR: There is a regular rate and rhythm without any murmurs gallops or rubs. ABDOMEN: Soft and nontender with normal bowel sounds. No palpable organomegaly was noted. There is no palpable pulsatile mass. SKIN: Skin is clear with no lesions or rashes and otherwise unremarkable. NEUROLOGIC: Patient is alert and oriented x3. Cranial nerves II through XII are grossly intact. Motor and sensory are also intact. Normal speech, volume and content. Symmetrical smile. MUSCULOSKELETAL: Normal extremities with adequate strength and full range of motion. No lower extremity swelling or edema. No calf tenderness. LYMPHATICS: No significant lymphadenopathy is noted PSYCHIATRIC: Normal psychiatric evaluation. Limitations: no limitations Course Vital Signs 02/01/19 02/01/19 02/01/19 12:40 15:02 16:27 Temperature 97.9 F Pulse Rate 42 L 66 68 Respiratory 18 16 18 Rate Blood Pressure 125/52 139/75 114/66 O2 Sat by Pulse 93 L 93 L 97 Oximetry 02/01/19 17:55 Temperature Pulse Rate 46 L Respiratory 16 Rate Blood Pressure 136/72 O2 Sat by Pulse 94 L Oximetry Medical Decision Making - Medical Decision Making EKG shows a sinus rhythm with frequent PVCs and bigeminy manner. Patient has a ventricular rate of 70 AR interval is 166 QRS is 86 QT interval 394 QTC is 425. EKG shows no ST segment elevation or depression. - Lab Data Result diagrams: 02/01/19 13:39 02/01/19 13:39 Lab Results 02/01/19 02/01/19 02/01/19 Range/Units 13:39 13:39 Unknown WBC 17.2 H (3.8-10.6) k/uL RBC 5.32 (3.80-5.40) m/uL Hgb 16.7 H (11.4-16.0) gm/dL Hct 52.1 H (34.0-46.0) % MCV 97.9 (80.0-100.0) fL MCH 31.3 (25.0-35.0) pg MCHC 32.0 (31.0-37.0) g/dL RDW 12.5 (11.5-15.5) % Plt Count 359 (150-450) k/uL Neutrophils % 78 % Lymphocytes % 19 % Monocytes % 2 % Eosinophils % 0 % Basophils % 0 % Neutrophils # 13.5 H (1.3-7.7) k/uL Lymphocytes # 3.3 (1.0-4.8) k/uL Monocytes # 0.3 (0-1.0) k/uL Eosinophils # 0.0 (0-0.7) k/uL Basophils # 0.0 (0-0.2) k/uL Sodium 139 (137-145) mmol/L Potassium 5.6 H (3.5-5.1) mmol/L Chloride 99 (98-107) mmol/L Carbon Dioxide 30 (22-30) mmol/L Anion Gap 10 mmol/L BUN 40 H (7-17) mg/dL Creatinine 0.96 (0.52-1.04) mg/dL Est GFR (CKD-EPI)AfAm 63 (>60 ml/min/1.73 sqM) Est GFR (CKD-EPI)NonAf 55 (>60 ml/min/1.73 sqM) Glucose 133 H (74-99) mg/dL Calcium 10.8 H (8.4-10.2) mg/dL Magnesium 2.0 (1.6-2.3) mg/dL Total Bilirubin 0.9 (0.2-1.3) mg/dL AST 43 H (14-36) U/L ALT 43 (9-52) U/L Alkaline Phosphatase 61 (38-126) U/L Total Protein 6.8 (6.3-8.2) g/dL Albumin 4.3 (3.5-5.0) g/dL Urine Color Yellow Urine Appearance Clear (Clear) Urine pH 6.0 (5.0-8.0) Ur Specific Mcpherson 1.015 (1.001-1.035) Urine Protein Negative (Negative) Urine Glucose (UA) Negative (Negative) Urine Ketones Negative (Negative) Urine Blood Negative (Negative) Urine Nitrite Negative (Negative) Urine Bilirubin Negative (Negative) Urine Urobilinogen <2.0 (<2.0) mg/dL Ur Leukocyte Esterase Negative (Negative) Disposition Clinical Impression: Clostridium difficile colitis, Weight loss, Pneumothorax Disposition: ADMITTED IP TO THIS [facility] Referrals: Colt Fernandez MD [Primary Care Provider] - 1-2 days Time of Disposition: 18:11
[2019-02-01 14:14] LABS: Basophils % (A) 0 %; Eosinophils % (A) 0 %; HCT 52.1 % (34.0-46.0); HGB 16.7 gm/dL (11.4-16.0); Lymphocytes # (A) 3.3 k/uL (1.0-4.8); Lymphocytes % (A) 19 %; MCH 31.3 pg (25.0-35.0); MCV 97.9 fL (80.0-100.0); Mean Platelet Volume 7.5; Monocytes # (A) 0.3 k/uL (0-1.0); Monocytes % (A) 2 %; Neutrophils # (A) 13.5 k/uL (1.3-7.7); Neutrophils % (A) 78 %; Platelet Count 359 k/uL (150-450); RBC 5.32 m/uL (3.80-5.40); RDW 12.5 % (11.5-15.5); WBC 17.2 k/uL (3.8-10.6)
[2019-02-01 14:26] LABS: Albumin 4.3 g/dL (3.5-5.0); Calcium 10.8 mg/dL (8.4-10.2); Potassium 5.6 mmol/L (3.5-5.1); Total Bilirubin 0.9 mg/dL (0.2-1.3); Total Protein 6.8 g/dL (6.3-8.2)
--- NOTE | 2019-02-01 14:56 | XR ---
EXAMINATION TYPE: XR chest 2V DATE OF EXAM: 02/01/2019 COMPARISON: Prior chest x-ray 01/27/2019 HISTORY: Difficulty breathing, weakness TECHNIQUE: Frontal and lateral views of the chest are obtained. FINDINGS: Right-sided hydropneumothorax is present and has increased in size in the interval. There is blunting the left costophrenic angle. Heart size is likely stable. Patient is rotated. IMPRESSION: Right-sided hydropneumothorax. Bibasilar effusions.
[2019-02-01 15:05] LABS: Appearance,Urine Clear (Clear); Bilirubin,Urine Negative (Negative); Blood,Urine Negative (Negative); Color,Urine Yellow; Glucose,Urine (UA) Negative (Negative); Ketones,Urine Negative (Negative); Leukocyte Esterase,Urine Negative (Negative); Nitrite,Urine Negative (Negative); Protein,Urine Negative (Negative); Specific Gravity,Urine 1.015 (1.001-1.035); Urobilinogen,Urine <2.0 mg/dL (<2.0)
[2019-02-01] MEDS ORDERED: DIPHENOX-ATROP 2.5-0.025 MG 1 EACH TAB PO PRN (18:15)
[2019-02-01] MEDS ORDERED: IPRATROPIUM-ALBUTEROL 3 ML NEB INHALATION PRN (18:35)
[2019-02-01] MEDS ORDERED: HYDROcodone/APAP 5-325MG 1 EACH TAB PO PRN (18:36)
[2019-02-01] MEDS ORDERED: ACETAMINOPHEN TAB 325 MG TAB PO PRN (18:36)
[2019-02-01] MEDS ORDERED: NALOXONE 0.4 MG/ML 1 ML VIAL IV PRN (18:36)
--- NOTE | 2019-02-01 18:48 | P.HPIM ---
History of Present Illness H&P Date: 02/01/19 Chief Complaint: Diarrhea 83-year-old female with PMH of hypertension and COPD presents to the ED for diarrhea. Patient was recently discharged on 01/27/2019. She was seen for shortness of breath and difficulty breathing. She was initially diagnosed with COPD and acute diastolic CHF exacerbation. She was started on duo nebs, steroids and IV Lasix. Patient was also started on Rocephin and azithromycin for concerns of pneumonia. CTA of the chest was performed which ruled out PE but did show pleural effusion bilaterally. Pulmonology was consulted and thoracocentesis was performed. Patient developed a pneumothorax in the right side of the chest post thoracocentesis and chest tube had to be placed. 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 Patient was discharged on Bactrim for treatment of MAC. She was also discharged on 3 L home O2. Patient reports multiple episodes of diarrhea after returning home. Her diarrhea is associated with nausea but no vomiting. Daughter reports that the patient has went from 112 pounds to 101 pounds since her discharge. Daughter also reports that the patient was able to make an appointment with her PCP Dr. Fernandez who ordered a CA [address] of the abdomen and pelvis. Otherwise, patient denies any headache, lower extremity edema, fever or chills, chest pain, palpitations, changes in urination. She reports a decreased appetite. Patient also complains of a dry cough that has been ongoing since previous admission along with some minor shortness of breath. In the ED, vital signs were stable on 3 L O2. CBC showed a mild leukocytosis of 17.2. CMP showed potassium of 5.6, BUN of 40 and glucose of 133. Chest x-ray showed a right-sided hydropneumothorax. Infectious disease, oncology and pulmonology is consulted for possible C. diff and continued oncology workup. Review of Systems Pertinent positives and negatives as discussed in HPI, a complete review of systems was performed and all other systems are negative. Past Medical History Past Medical History: COPD, Hypertension, Osteoarthritis (OA) Additional Past Medical History / Comment(s): emphysema; irreg heart rate History of Any Multi-Drug Resistant Organisms: None Reported Past Surgical History: Appendectomy, Heart Catheterization, Tonsillectomy, Tubal Ligation Additional Past Surgical History / Comment(s): rt breast lumpectomy Past Anesthesia/Blood Transfusion Reactions: No Reported Reaction Past Psychological History: Anxiety Smoking Status: Former smoker Past Alcohol Use History: Occasional Past Drug Use History: None Reported - Past Family History Sister(s) Family Medical History: Cancer Medications and Allergies Home Medications Medication Instructions Recorded Confirmed Type Aspirin 162 mg PO DAILY 11/05/13 02/01/19 History Losartan [Cozaar] 50 mg PO DAILY 11/05/13 02/01/19 History Multivitamins, Thera [Multivitamin 1 tab PO DAILY 01/21/19 02/01/19 History (formulary)] Umeclidinium Brm/Vilanterol Tr 1 puff INHALATION RT-DAILY 01/21/19 02/01/19 History [Anoro Ellipta 62.5-25 Mcg INH] Albuterol Inhaler [Ventolin Hfa 1 - 2 puff INHALATION RT-Q6H PRN 01/27/19 02/01/19 Rx Inhaler] #1 inhaler Furosemide [Lasix] 40 mg PO DAILY #30 tab 01/27/19 02/01/19 Rx Potassium Chloride ER [K-Dur 20] 40 meq PO DAILY #30 tab.er.prt 01/27/19 02/01/19 Rx Budesonide-Formot 160-4.5 Mcg 2 puff INHALATION RT-BID 02/01/19 02/01/19 History [Symbicort 160-4.5 Mcg Inhaler] predniSONE See Taper PO DAILY 02/01/19 02/01/19 History Allergies Allergy/AdvReac Type Severity Reaction Status Date / Time No Known Allergies Allergy Verified 02/01/19 13:06 Physical Exam Vitals: Vital Signs Temp Pulse Resp BP Pulse Ox 02/01/19 17:55 46 L 16 136/72 94 L 02/01/19 16:27 68 18 114/66 97 02/01/19 15:02 66 16 139/75 93 L 02/01/19 12:40 97.9 F 42 L 18 125/52 93 L Intake and Output 02/01/19 02/01/19 02/01/19 06:59 14:59 22:59 Other: Weight 45.813 kg General: [non toxic], [no distress], [appears at stated age] Derm: [warm], [dry] Head: [atraumatic], [normocephalic], [symmetric] Eyes: [EOMI], [no lid lag], [anicteric sclera] Mouth: [no lip lesion], [mucus membranes moist] Cardiovascular: [S1S2 reg], [no murmur], [positive DP pulse bilateral], Lungs: [Decreased breath sounds bilateral], [no rhonchi, no rales] , [no accessory muscle use] Abdominal: [soft], [ nontender to palpation], [no guarding], [no appreciable organomegaly] Ext: [no gross muscle atrophy], [no edema], [no contractures] Neuro: [ CN II-XI grossly intact], [no focal neuro deficits] Psych: [Alert], [oriented], [appropriate affect] Results CBC & Chem 7: 02/01/19 13:39 02/01/19 13:39 Labs: Abnormal Lab Results - Last 24 Hours (Table) 02/01/19 02/01/19 Range/Units 13:39 13:39 WBC 17.2 H (3.8-10.6) k/uL Hgb 16.7 H (11.4-16.0) gm/dL Hct 52.1 H (34.0-46.0) % Neutrophils # 13.5 H (1.3-7.7) k/uL Potassium 5.6 H (3.5-5.1) mmol/L BUN 40 H (7-17) mg/dL Glucose 133 H (74-99) mg/dL Calcium 10.8 H (8.4-10.2) mg/dL AST 43 H (14-36) U/L Assessment and Plan Assessment: Assessment and Plan Diarrhea with history of recent antibiotic use, rule out Clostridium difficile 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 diff. Start vancomycin by mouth. Lomotil as needed. Follow ID recommendations. As seen on pleural fluid cytology on previous admission. Plans: Follow oncology recommendations. Patient elects to be full code at this time pending further oncology workup. As seen on chest x-ray. Likely from previous admission. Plans: O2 per NC to maintain O2 saturation greater than 92%. Optimize COPD medications. Follow pulmonology recommendations. Potassium 5.6. Patient takes potassium supplementation at home. Plans: DC supplementation. Repeat BMP tomorrow morning. BUN 40. Likely secondary to dehydration. Plans: Continue normal saline at 100 mL per hour. Stable. Plans: DuoNeb as needed for shortness of breath and wheezing. BP 136/72. Plans: Continue losartan. Monitor vitals, adjust medications as necessary. DVT prophylaxis: [SCD boots] Discussed with: [Patient and daughter] Anticipated discharge: [1-3 days] Anticipated discharge place: [Home] A total of [45] minutes was spent on the care of this complex patient more than 50% of the time was spent in counseling and care coordination. Patient elects to be full code at this time. Patient names her daughter Yamila decision maker indicates that she can't make decisions for herself. Her daughter's phone number is [phone].
[2019-02-01] MEDS: VANCOMYCIN ORAL SOLUTION 250 MG/5 ML BOTTLE PO SCH (23:53)
[2019-02-01] MEDS: CHERRY FLAVOR 60 ML BOTTLE PO PRN (23:53)
[2019-02-02] MEDS: VANCOMYCIN ORAL SOLUTION 250 MG/5 ML BOTTLE PO SCH ×3 (01:36→11:37)
[2019-02-02] MEDS: CHERRY FLAVOR 60 ML BOTTLE PO PRN ×2 (06:31→11:36)
[2019-02-02 07:41] LABS: Calcium 8.9 mg/dL (8.4-10.2); Potassium 4.5 mmol/L (3.5-5.1)
[2019-02-02 07:54] LABS: Basophils # (A) 0.1 k/uL (0-0.2); Basophils % (A) 0 %; Eosinophils # (A) 0.2 k/uL (0-0.7); Eosinophils % (A) 2 %; HCT 45.5 % (34.0-46.0); HGB 14.3 gm/dL (11.4-16.0); Lymphocytes # (A) 3.1 k/uL (1.0-4.8); Lymphocytes % (A) 23 %; MCHC 31.4 g/dL (31.0-37.0); MCV 98.7 fL (80.0-100.0); Mean Platelet Volume 7.9; Monocytes # (A) 0.6 k/uL (0-1.0); Monocytes % (A) 5 %; Neutrophils # (A) 9.4 k/uL (1.3-7.7); Neutrophils % (A) 70 %; Platelet Count 323 k/uL (150-450); RBC 4.61 m/uL (3.80-5.40); WBC 13.5 k/uL (3.8-10.6)
[2019-02-02] MEDS: FUROSEMIDE 40 MG TAB PO SCH (08:56)
[2019-02-02] MEDS: ASPIRIN 81 MG PO SCH (08:56)
[2019-02-02] MEDS: LOSARTAN 50 MG TAB PO SCH (08:56)
[2019-02-02 12:39] VITALS: BMI 18.4
[2019-02-02] MEDS: IPRATROPIUM-ALBUTEROL 3 ML NEB INHALATION SCH ×2 (12:57→19:35)
--- NOTE | 2019-02-02 13:01 | CDI ---
Documentation Clarification Form Date: 02/02/2019 12:44pm From: Peggy Bauman RN CCDS Admit Date: 02/01/2019 6:12:00 PM Patient Name: Micheline Cleary Visit Number: [id number] Discharge Date: ATTENTION: The Clinical Documentation Specialists (CDI) and [facility] Coding Staff appreciate your assistance in clarifying documentation. Please respond to the clarification below the line at the bottom and electronically sign. The CDI & [facility] Coding staff will review the response and follow-up if needed. Please note: Queries are made part of the Legal Health Record. If you have any questions, please contact the author of this message via ITS. Dr. Lg Heredia Patient was recently discharged on .She was seen for shortness of breath and difficulty breathing. She was initially diagnosed with COPD and Acute Diastolic CHF exacerbation History/Risk Factors: 83 y/o female presents to the ED for diarrhea. Medical Hx COPD HTN OA Clinical Indicators: VS/Pulse OX: 136/75 66 16 93% ra Echocardiogram 01/22/2019 The left ventricular size is normal. There is mild concentric left ventricular hypertrophy. Overall left ventricular systolic function is normal with , an EF between 55-60% Chest X Ray: Right sided hydropneumothorax. Bibasilar effusions Home meds Cozaar, Lasix po Treatment: Cozaar, Lasix po In your professional opinion, can you please clarify the acuity and type of CHF if known? * Chronic Diastolic Heart Failure * Diastolic Heart Failure Ruled out * Unable to Determine * Other, please specify (Last Revision: September 2017) chronic diastolic HF MTDD
[2019-02-02] MEDS ORDERED: RX INFO: IV CONTRAST WAS GIVEN 1 EACH MISC MISCELLANE PRN (13:15)
--- NOTE | 2019-02-02 13:39 | P.PN ---
Subjective Progress Note Date: 02/02/19 Principal diagnosis: diarrhea Patient was seen and examined. No acute events overnight. 1 diarrhea episode overnight. Patient states that she feels like the diarrhea has subsided.she denies any chest pain, shortness of breath or palpitations. No nausea or vomiting. No fever or chills. Objective - Vital Signs Vital signs: Vital Signs Temp 97.3 F L 02/02/19 07:00 Pulse 56 L 02/02/19 13:08 Resp 16 02/02/19 07:00 BP 135/73 02/02/19 07:00 Pulse Ox 94 L 02/02/19 07:00 Intake & Output 02/01/19 02/02/19 02/02/19 18:59 06:59 18:59 Intake Total 120 Balance 120 Weight 45.813 kg 45.813 kg Intake: Oral 120 Other: # Voids 1 - Exam General: [non toxic], [no distress], [appears at stated age] Derm: [warm], [dry] Head: [atraumatic], [normocephalic], [symmetric] Eyes: [EOMI], [no lid lag], [anicteric sclera] Mouth: [no lip lesion], [mucus membranes moist] Cardiovascular: [S1S2 reg], [no murmur], [positive DP pulse bilateral], Lungs: [Decreased breath sounds bilateral], [no rhonchi, no rales] , [no accessory muscle use] Abdominal: [soft], [ nontender to palpation], [no guarding], [no appreciable organomegaly] Ext: [no gross muscle atrophy], [no edema], [no contractures] Neuro: [no focal neuro deficits] Psych: [Alert], [oriented], [appropriate affect] - Labs CBC & Chem 7: 02/02/19 06:49 02/02/19 06:49 Labs: Abnormal Lab Results - Last 24 Hours (Table) 02/01/19 02/01/19 02/02/19 Range/Units 13:39 13:39 06:49 WBC 17.2 H 13.5 H (3.8-10.6) k/uL Hgb 16.7 H (11.4-16.0) gm/dL Hct 52.1 H (34.0-46.0) % Neutrophils # 13.5 H 9.4 H (1.3-7.7) k/uL Potassium 5.6 H (3.5-5.1) mmol/L BUN 40 H (7-17) mg/dL Glucose 133 H (74-99) mg/dL Calcium 10.8 H (8.4-10.2) mg/dL AST 43 H (14-36) U/L 02/02/19 Range/Units 06:49 WBC (3.8-10.6) k/uL Hgb (11.4-16.0) gm/dL Hct (34.0-46.0) % Neutrophils # (1.3-7.7) k/uL Potassium (3.5-5.1) mmol/L BUN 33 H (7-17) mg/dL Glucose (74-99) mg/dL Calcium (8.4-10.2) mg/dL AST (14-36) U/L Assessment and Plan Assessment: Assessment and Plan Diarrhea with history of recent antibiotic use, rule out Clostridium difficile 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 difficile negative. Plans: DC Vancomycin. Lomotil as needed. Follow ID recommendations. As seen on pleural fluid cytology on previous admission. Right ovarian mass seen on CT. CA 125 positive. Plans: Follow oncology recommendations. CT chest ordered. Patient elects to be full code at this time pending further oncology workup. As seen on chest x-ray. Likely from previous admission. Plans: O2 per NC to maintain O2 saturation greater than 92%. Continue Symbicort. DuoNeb every 4 hours scheduled and as needed for shortness of breath. Follow CT chest as above. Follow pulmonology recommendations. Potassium 5.6. Patient takes potassium supplementation at home. Plans: DC supplementation. Repeat BMP tomorrow morning. Resolved. BUN 40-33. Likely secondary to dehydration. Plans: Continue normal saline at 100 mL per hour. Repeat in the morning. Stable. Plans: DuoNeb as needed for shortness of breath and wheezing. BP 135/73. Plans: Continue losartan. Monitor vitals, adjust medications as necessary. [Oncology workup underway. CT chest ordered. Pulmonology on board as well. Likely DC in 1-2 days]
--- NOTE | 2019-02-02 13:49 | P.CNPUL ---
History of Present Illness Consult date: 02/02/19 Requesting physician: Lg Heredia Reason for consult: other Chief complaint: Diarrhea History of present illness: This is a 83-year-old white female patient who was recently discharged from the hospital after being hospitalized for hypoxemic respiratory failure related to bilateral pleural effusions, status post right-sided thoracentesis and postprocedural pneumothorax requiring placement of a right-sided chest tube with subsequent reexpansion of the right lung. 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 Patient was supposed to follow up with medical oncology post discharge, however developed diarrhea at home, and was readmitted on oral 02/01/2019 with complaints of frequent diarrhea, weight loss, nausea, and lack of appetite, patient lost 11 pounds since discharge. She denied any difficulty breathing, denied any cough or congestion, no complaints of chest pain. Denied any fever or chills, denied any palpitations, denies any headaches, no lower extremity edema, no abdominal pain. She was discharged home on Bactrim for treatment of Mycobacterium avium. She was also discharged home on 3 L of oxygen. Past medical history is that of hypertension, COPD, normally not oxygen dependent, former history of smoking, patient carries a [id number] smoking history, in remission currently, osteoarthritis, anxiety, history of breast cancer with right-sided mastectomy. Lab work was positive for leukocytosis, increased since discharge, white blood cell count of 17.2, hemoglobin of 16.7, hematocrit increased at 52.1, likely related to dehydration, serum sodium was 139, potassium is 5.6, B1 is 40, creatinine is 0.96, urinalysis was negative, and C. diff was negative. Room air pulse ox is 94%, patient is afebrile, no hypotension, no altered mentation, no fever or chills, chest x-ray showed a right-sided hydropneumothorax, increased in size since previous admission, and blunting of the left costophrenic angle related to pleural effusion. Patient has been started on oral vancomycin and Lomotil, she is currently resting comfortably in bed, her diarrhea has improved since admission, she states she is still having some liquid dark stools, but the frequency has improved. Review of Systems All systems: negative Constitutional: Denies chills, Denies fever Eyes: denies blurred vision, denies pain Ears, nose, mouth and throat: Denies headache, Denies sore throat Cardiovascular: Denies chest pain, Denies shortness of breath Respiratory: Denies cough Gastrointestinal: Reports change in bowel habits, Denies abdominal pain, Denies diarrhea, Denies nausea, Denies vomiting Genitourinary: Denies dysuria, Denies hematuria Musculoskeletal: Denies myalgias Integumentary: Denies pruritus, Denies rash Neurological: Denies numbness, Denies weakness Psychiatric: Denies anxiety, Denies depression Endocrine: Denies fatigue, Denies weight change Past Medical History Past Medical History: COPD, Hypertension, Osteoarthritis (OA) Additional Past Medical History / Comment(s): emphysema; irreg heart rate History of Any Multi-Drug Resistant Organisms: None Reported Past Surgical History: Appendectomy, Heart Catheterization, Tonsillectomy, Tubal Ligation Additional Past Surgical History / Comment(s): rt breast lumpectomy Past Anesthesia/Blood Transfusion Reactions: No Reported Reaction Past Psychological History: Anxiety Additional Psychological History / Comment(s): Has been for 22 years. Lives independently. Reformed smoker. No recent international travel. 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 No international travel does not like to travel et al. Stays in the [facility] area most of the time Smoking Status: Former smoker Past Alcohol Use History: Occasional Past Drug Use History: None Reported - Past Family History Sister(s) Family Medical History: Cancer Medications and Allergies Home Medications Medication Instructions Recorded Confirmed Type Aspirin 162 mg PO DAILY 11/05/13 02/01/19 History Losartan [Cozaar] 50 mg PO DAILY 11/05/13 02/01/19 History Multivitamins, Thera [Multivitamin 1 tab PO DAILY 01/21/19 02/01/19 History (formulary)] Umeclidinium Brm/Vilanterol Tr 1 puff INHALATION RT-DAILY 01/21/19 02/01/19 History [Anoro Ellipta 62.5-25 Mcg INH] Albuterol Inhaler [Ventolin Hfa 1 - 2 puff INHALATION RT-Q6H PRN 01/27/19 02/01/19 Rx Inhaler] #1 inhaler Furosemide [Lasix] 40 mg PO DAILY #30 tab 01/27/19 02/01/19 Rx Potassium Chloride ER [K-Dur 20] 40 meq PO DAILY #30 tab.er.prt 01/27/19 02/01/19 Rx Budesonide-Formot 160-4.5 Mcg 2 puff INHALATION RT-BID 02/01/19 02/01/19 History [Symbicort 160-4.5 Mcg Inhaler] predniSONE See Taper PO DAILY 02/01/19 02/01/19 History Allergies Allergy/AdvReac Type Severity Reaction Status Date / Time No Known Allergies Allergy Verified 02/01/19 13:06 Physical Exam Vitals: Vital Signs Temp Pulse Pulse Resp BP BP Pulse Ox 02/02/19 13:08 56 L 02/02/19 12:57 52 L 02/02/19 07:43 60 02/02/19 07:31 60 02/02/19 07:00 97.3 F L 69 16 135/73 94 L 02/02/19 04:00 63 02/02/19 02:00 97.5 F L 63 17 113/53 96 02/01/19 20:49 96 02/01/19 19:20 97.4 F L 72 17 124/62 99 02/01/19 17:55 46 L 16 136/72 94 L 02/01/19 16:27 68 18 114/66 97 02/01/19 15:02 66 16 139/75 93 L Intake and Output 02/01/19 02/02/19 02/02/19 22:59 06:59 14:59 Intake Total 120 Balance 120 Intake: Oral 120 Other: # Voids 1 1 Weight 45.813 kg GENERAL EXAM: Alert, pleasant, thin 83-year-old white female, on room air, comfortable in no apparent distress. HEAD: Normocephalic/atraumatic. EYES: Normal reaction of pupils, equal size. Conjunctiva pink, sclera white. NOSE: Clear with pink turbinates. THROAT: No erythema or exudates. NECK: No masses, no JVD, no thyroid enlargement, no adenopathy. CHEST: No chest wall deformity. Symmetrical expansion. LUNGS: Equal air entry with diminished breath sounds at bilateral posterior bases, CVS: Regular rate and rhythm, normal S1 and S2, no gallops, no murmurs, no rubs ABDOMEN: Soft, nontender. No hepatosplenomegaly, normal bowel sounds, no gu arding or rigidity. EXTREMITIES: No clubbing, no edema, no cyanosis, 2+ pulses and upper and lower e xtremities. MUSCULOSKELETAL: Muscle strength and tone normal. SPINE: No scoliosis or deformity SKIN: No rashes CENTRAL NERVOUS SYSTEM: Alert and oriented -3. No focal deficits, tone is normal in all 4 extremities. PSYCHIATRIC: Alert and oriented -3. Appropriate affect. Intact judgment and insight. Results - Laboratory Findings CBC and BMP: 02/02/19 06:49 02/02/19 06:49 Abnormal lab findings: Abnormal Labs 02/01/19 02/01/19 02/02/19 13:39 13:39 06:49 WBC 17.2 H 13.5 H Hgb 16.7 H Hct 52.1 H Neutrophils # 13.5 H 9.4 H Potassium 5.6 H BUN 40 H Glucose 133 H Calcium 10.8 H AST 43 H 02/02/19 06:49 WBC Hgb Hct Neutrophils # Potassium BUN 33 H Glucose Calcium AST - Diagnostic Findings Chest x-ray: report reviewed, image reviewed Assessment and Plan Plan: Assessment: #1. Acute diarrhea and dehydration, C. diff was negative #2. Right-sided hydropneumothorax, increased since previous admission, and left-sided pleural effusion, status post right-sided thoracentesis, with postprocedural right-sided pneumothorax, requiring chest tube placement and subsequent reexpansion of the right lung. Pleural fluid positive for metastatic adenocarcinoma with possible ovarian or endometrial primary #3. Recent diagnosis of metastatic adenocarcinoma with possible ovarian or endometrial primary #4. History of COPD, on oxygen since most recent admission #5. History of chronic congestive heart failure with diastolic dysfunction #6. Hypertension #7. Osteoarthritis #8. Former smoker #9. Anxiety #10. History of gastroesophageal reflux disease #11. History of breast cancer status post right-sided mastectomy Plan: Chest x-ray shows increased right-sided hydropneumothorax, however patient denies any pulmonary complaints, room air pulse ox is 94%, denies any chest pain, denies any pleurisy, denies any cough or congestion. Afebrile, vital signs are stable, diarrhea has improved, C. diff was negative, continues on oral vancomycin and Lomotil. It breathing treatments, incentive spirometry, daily chest x-rays, we'll continue to monitor, may consider repeat thoracentesis should her pulmonary status worsens. Oncology is following, and CT chest with contrast has been ordered and pending at this time. Will review the films when those are available. I performed a history & physical examination of the patient and discussed their management with my nurse practitioner, Tuyet Menon. I reviewed the nurse practitioner's note and agree with the documented findings and plan of care. Lung sounds are positive for diminished breath sounds. The findings and the impression was discussed with the patient. I attest to the documentation by the nurse practitioner. Time with Patient: Greater than 30
--- NOTE | 2019-02-02 14:46 | CT ---
EXAMINATION TYPE: CT chest w con DATE OF EXAM: 02/02/2019 COMPARISON: 01/21/2019 and 06/20/2015. Also, radiograph 02/02/2020 HISTORY: 83-year-old female Weight loss TECHNIQUE: Contiguous axial scanning of the chest after the administration of 100 ml mL of Isovue 300 . Coronal/sagittal reconstructions performed. CT DLP: 204.2mGycm. Automatic exposure control utilized for a dose reduction. FINDINGS: Heart normal size without pericardial effusion. Coronary vessel calcifications are present. Aorta normal caliber with bovine configuration to the aortic arch. Mild to moderate scattered atheros clerotic calcifications. Large caliber to the main right and left pulmonary arteries are 2.9 and 2.7 cm, respectively suggesti ng underlying pulmonary artery hypertension. No thoracic lymphadenopathy by CT size criteria. Some generalized anasarca type changes noted. Moderate left and [id number] right pleural effusions with adjacent atelectasis. There is a moderate-sized right-sided pneumothorax primarily anteriorly in a inferiorly located estim ated at 20%. Patchy areas of opacity at the medial right lung base could represent atelectasis or infiltrate. Foll ow-up recommended to ensure resolution of these opacities, particularly at the medial right base with in the middle lobe where the density measures 3.0 cm, refer to sagittal image 49. Visualized upper abdomen shows no gross abnormality. Bones: Multilevel degenerative changes mid to lower thoracic spine with chronic anterior wedging of L 1. IMPRESSION: 1. Right-sided hydropneumothorax. The effusion is [id number] in size and the pneumothorax is e stimated at 20%. 2. Moderate left pleural effusion. Adjacent atelectasis at both lung bases. 3. Additional focal density medial right base measures 3.0 cm and could represent an additional area of atelectasis versus infiltrate. Follow-up after successful treatment to ensure clearance and exclud e underlying mass. 4. Pulmonary arterial hypertension.
--- NOTE | 2019-02-02 15:03 | P.CONS ---
History of Present Illness - Reason for Consult Consult date: 02/02/19 adenocarcinoma Requesting physician: Cruzito Samano - Chief Complaint diarrhea - History of Present Illness Ms. Cleary is a very pleasant 83 year old female who is currently admitted for diarrhea, which started after discharge about 1.5 weeks ago. It is persistent, associated with wt. loss of 10lbs, denies bleeding, mild rectal irritation. Her visit 2 weeks ago was for progressive SOB, started in Jun 2018, no associated symptoms reported other then fatigue. She had a right thoracentesis 01/22/[address] Gtz with 100cc pl fluid removed, cytology posi tive for adenocarcinoma ovarian vs endometrial origin. Pt denies any abd symptoms such as bloating, cramping, BLE swelling. She had CT AP on admit due to diarrhea, a right ovarian mass is noted, bilateral small pleural effusions with suspicion for pleural/pulm mets. She has no other c/o on a 14 point ROS, she is usually independent and active, she feels good today. Review of Systems 14 point ROS is negative except as stated in HPI Past Medical History Past Medical History: COPD, Hypertension, Osteoarthritis (OA) Additional Past Medical History / Comment(s): emphysema; irreg heart rate History of Any Multi-Drug Resistant Organisms: None Reported Past Surgical History: Appendectomy, Heart Catheterization, Tonsillectomy, Tubal Ligation Additional Past Surgical History / Comment(s): rt breast lumpectomy Past Anesthesia/Blood Transfusion Reactions: No Reported Reaction Past Psychological History: Anxiety Additional Psychological History / Comment(s): Has been for 22 years. Lives independently. Reformed smoker. No recent international travel. 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 No international travel does not like to travel et al. Stays in the [facility] area most of the time Smoking Status: Former smoker Past Alcohol Use History: Occasional Past Drug Use History: None Reported - Past Family History Sister(s) Family Medical History: Cancer Medications and Allergies Home Medications Medication Instructions Recorded Confirmed Type Aspirin 162 mg PO DAILY 11/05/13 02/01/19 History Losartan [Cozaar] 50 mg PO DAILY 11/05/13 02/01/19 History Multivitamins, Thera [Multivitamin 1 tab PO DAILY 01/21/19 02/01/19 History (formulary)] Umeclidinium Brm/Vilanterol Tr 1 puff INHALATION RT-DAILY 01/21/19 02/01/19 History [Anoro Ellipta 62.5-25 Mcg INH] Albuterol Inhaler [Ventolin Hfa 1 - 2 puff INHALATION RT-Q6H PRN 01/27/19 02/01/19 Rx Inhaler] #1 inhaler Furosemide [Lasix] 40 mg PO DAILY #30 tab 01/27/19 02/01/19 Rx Potassium Chloride ER [K-Dur 20] 40 meq PO DAILY #30 tab.er.prt 01/27/19 02/01/19 Rx Budesonide-Formot 160-4.5 Mcg 2 puff INHALATION RT-BID 02/01/19 02/01/19 History [Symbicort 160-4.5 Mcg Inhaler] predniSONE See Taper PO DAILY 02/01/19 02/01/19 History Allergies Allergy/AdvReac Type Severity Reaction Status Date / Time No Known Allergies Allergy Verified 02/01/19 13:06 Physical Exam Vitals: Vital Signs Temp Pulse Pulse Resp BP BP Pulse Ox 02/02/19 13:08 56 L 02/02/19 12:57 52 L 02/02/19 07:43 60 02/02/19 07:31 60 02/02/19 07:00 97.3 F L 69 16 135/73 94 L 02/02/19 04:00 63 02/02/19 02:00 97.5 F L 63 17 113/53 96 02/01/19 20:49 96 02/01/19 19:20 97.4 F L 72 17 124/62 99 02/01/19 17:55 46 L 16 136/72 94 L 02/01/19 16:27 68 18 114/66 97 02/01/19 15:02 66 16 139/75 93 L Intake and Output 02/01/19 02/02/19 02/02/19 22:59 06:59 14:59 Intake Total 120 Balance 120 Intake: Oral 120 Other: # Voids 1 1 2 Weight 45.813 kg - Constitutional General appearance: cooperative, no acute distress, thin - EENT Eyes: anicteric sclerae, EOMI ENT: no hard of hearing, hearing grossly normal, no NA/AT, normal oropharynx, no other, no pharyngeal erythema, no thrush, no tonsillar exudates, no tonsillar swelling - Neck Neck: no lymphadenopathy - Respiratory Respiratory: bilateral: CTA - Cardiovascular Rhythm: regular Heart sounds: normal: S1, S2 Abnormal Heart Sounds: no systolic murmur, no diastolic murmur, no rub, no S3 Gallop, no S4 Gallop, no click, no other leg Peripheral Edema: bilateral: None - Gastrointestinal General gastrointestinal: no absent bowel sounds, no decreased bowel sounds, no distended, no hepatomegaly, no hyperactive bowel sounds, normal bowel sounds, no organomegaly, no rigid, no scaphoid, soft, no splenomegaly, no tenderness, no umbilical hernia, no ventral hernia - Integumentary Integumentary: normal - Neurologic Neurologic: CNII-XII intact - Musculoskeletal Musculoskeletal: strength equal bilaterally - Psychiatric Psychiatric: A&O x's 3, appropriate affect, intact judgment & insight Results CBC & Chem 7: 02/02/19 06:49 02/02/19 06:49 Labs: Abnormal Lab Results - Last 24 Hours (Table) 02/02/19 02/02/19 Range/Units 06:49 06:49 WBC 13.5 H (3.8-10.6) k/uL Neutrophils # 9.4 H (1.3-7.7) k/uL BUN 33 H (7-17) mg/dL CT scan - abdomen: report reviewed CT scan - pelvis: report reviewed Assessment and Plan (1) Adenocarcinoma Narrative/Plan: Pleural fluid positive for adenocarcinoma, ovarian vs endometrial. CT AP revealed a right ovarian mass, no discussion of ascites or carcinamotosis. Ca [address] chest to complete staging. Requisition sent for NGS testing on malignant cells to see if there are any actionable biomarkers/mutations. Discussed with pt and noman at bedside diagnosis and plan to send specimen for NGS testing. We did not review stage or prognosis at this time as there is more info needed. Current Visit: Yes Status: Acute Priority: High Code(s): C80.1 - MALIGNANT (PRIMARY) NEOPLASM, UNSPECIFIED SNOMED Code(s): 882002292 (2) Pleural effusion Narrative/Plan: Pt is doing very well s/p 100cc thoracentesis. No evidence to suggest recurrence at this time. Current Visit: No Status: Acute Priority: Low Code(s): J90 - PLEURAL EFFUSION, NOT ELSEWHERE CLASSIFIED SNOMED Code(s): 96675407 Plan: Encouraged pt to stay active. Will review case in detail with Dr. Davis, pending some additional studies F/U in AM
--- NOTE | 2019-02-02 17:20 | P.CONS ---
History of Present Illness - Reason for Consult Consult date: 02/02/19 - Chief Complaint Weakness and diarrhea - History of Present Illness 83-year-old female who was recently hospitalized it which will attempt she had difficulties with pleural effusion. Thoracentesis was performed and complicated by a pneumothorax. Hydropneumothorax was drained via chest tube and eventually she had significant improvement of her status. She has had a decrease in her functional status over the 7 months before coming to Hospital was thought that she had developed significant in rapidly worsening COPD. 3 treated with multiple respiratory treatments and was sent home with oxygen therapy. Shortly after her discharge it was found that the pleural fluid had a large amount of malignant cells consistent with adenocarcinoma, likely of ovarian or uterus origin. The patient was in the midst of evaluations in the outpatient setting when she noticed a marked worsening of her status. She developed copious amount of diarrhea multiple times per day she was unable to ea t or drink very well she became dehydrated consequently presents to the emergency center feeling very poorly. Of note during the last day at the time of the thoracentesis samples were sent to the laboratory and were found to be acid-fast bacilli positive. 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 The patient is brought in the hospital with concerns to C. diff colitis and her dehydration. At this time fortunately with rehydration she is doing considerably better. Review of Systems HEENT:Denies headache or acute visual change. Denies sinus or mouth discomforts. Denies neck stiffness or pain. Denies significant oral cavity pain. Denies difficulty on swallowing. Lungs: Her shortness of breath considerably improved after thoracentesis and removal of the chest tube. She is not having any significant sputum production, no hemoptysis Cardiovascular: Her shortness of breath is improved. She's having no chest pain. She has poor exercise tolerance so because she is quite weak but does not have orthopnea or PND. Gastrointestinal:Denies nausea, vomiting, diarrhea, constipation, hematemesis, melena, hematochezia. No no significant change of bowel habit noticed. Musculoskeletal: Generalized weakness but no new acute pain Skin: Denies new rash or lesions. No new ulcers or wounds are related.. Neuro: Denies headache or visual change. Denies any new onset weakness or difficulty with ambulation. Denies falls or seizures. Psychiatric: Is developed some anxiety related to the recently found adenocarcinoma within her pleural fluid. Endocrine: Significant fatigue and has had a 15 pound weight loss with this illness Past Medical History Past Medical History: COPD, Hypertension, Osteoarthritis (OA) Additional Past Medical History / Comment(s): emphysema; irreg heart rate History of Any Multi-Drug Resistant Organisms: None Reported Past Surgical History: Appendectomy, Heart Catheterization, Tonsillectomy, Tubal Ligation Additional Past Surgical History / Comment(s): rt breast lumpectomy Past Anesthesia/Blood Transfusion Reactions: No Reported Reaction Past Psychological History: Anxiety Additional Psychological History / Comment(s): Has been for 22 years. Lives independently. Reformed smoker. No recent international travel. 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 Retired office specialist. No experience. No international travel does not like to travel et al. Stays in the [facility] most of the time Smoking Status: Former smoker Past Alcohol Use History: Occasional Past Drug Use History: None Reported - Past Family History Sister(s) Family Medical History: Cancer Medications and Allergies Home Medications and Allergies Comment(s): Current Medications Acetaminophen (Tylenol Tab) 650 mg PO Q6HR PRN PRN Reason: Mild Pain or Fever > 100.5 Hydrocodone Bitart/Acetaminophen (Rozet 5-325) 1 each PO Q4HR PRN PRN Reason: Moderate Pain Albuterol/Ipratropium (Duoneb 0.5 Mg-3 Mg/3 Ml Soln) 3 ml INHALATION RT-QID PRN PRN Reason: Shortness Of Breath Or Wheezing Last Admin: 02/02/19 07:30 Dose: 3 ml Documented by: Albuterol/Ipratropium (Duoneb 0.5 Mg-3 Mg/3 Ml Soln) 3 ml INHALATION RT-TID [facility] Last Admin: 02/02/19 12:57 Dose: 3 ml Documented by: Aspirin (Aspirin) 162 mg PO DAILY [facility] Last Admin: 02/02/19 08:56 Dose: 162 mg Documented by: Budesonide/Formoterol Fumarate (Symbicort 160-4.5 Mcg Inhaler) 2 puff INHALATIO N RT-BID [facility] Diphenoxylate HCl/Atropine (Lomotil) 2 each PO Q6HR PRN PRN Reason: Diarrhea Furosemide (Lasix) 40 mg PO DAILY [facility] Last Admin: 02/02/19 08:56 Dose: 40 mg Documented by: Losartan Potassium (Cozaar) 50 mg PO DAILY [facility] Last Admin: 02/02/19 08:56 Dose: 50 mg Documented by: Miscellaneous Information (Rx Info: Iv Contrast Was Given) 1 each MISCELLANE DAILY PRN PRN Reason: Per Protocol Stop: 02/04/19 13:19 Naloxone HCl (Narcan) 0.2 mg IV Q2M PRN PRN Reason: Opioid Reversal Oral vancomycin discontinued Home Medications Medication Instructions Recorded Confirmed Type Aspirin 162 mg PO DAILY 11/05/13 02/01/19 History Losartan [Cozaar] 50 mg PO DAILY 11/05/13 02/01/19 History Multivitamins, Thera [Multivitamin 1 tab PO DAILY 01/21/19 02/01/19 History (formulary)] Umeclidinium Brm/Vilanterol Tr 1 puff INHALATION RT-DAILY 01/21/19 02/01/19 History [Anoro Ellipta 62.5-25 Mcg INH] Albuterol Inhaler [Ventolin Hfa 1 - 2 puff INHALATION RT-Q6H PRN 01/27/19 02/01/19 Rx Inhaler] #1 inhaler Furosemide [Lasix] 40 mg PO DAILY #30 tab 01/27/19 02/01/19 Rx Potassium Chloride ER [K-Dur 20] 40 meq PO DAILY #30 tab.er.prt 01/27/19 02/01/19 Rx Budesonide-Formot 160-4.5 Mcg 2 puff INHALATION RT-BID 02/01/19 02/01/19 History [Symbicort 160-4.5 Mcg Inhaler] predniSONE See Taper PO DAILY 02/01/19 02/01/19 History Allergies Allergy/AdvReac Type Severity Reaction Status Date / Time No Known Allergies Allergy Verified 02/01/19 13:06 Physical Exam Vitals: Vital Signs Temp Pulse Pulse Resp BP BP Pulse Ox 02/02/19 15:00 98.1 F 67 16 110/52 98 02/02/19 13:08 56 L 02/02/19 12:57 52 L 02/02/19 07:43 60 02/02/19 07:31 60 02/02/19 07:00 97.3 F L 69 16 135/73 94 L 02/02/19 04:00 63 02/02/19 02:00 97.5 F L 63 17 113/53 96 02/01/19 20:49 96 02/01/19 19:20 97.4 F L 72 17 124/62 99 02/01/19 17:55 46 L 16 136/72 94 L Intake and Output 02/02/19 02/02/19 02/02/19 06:59 14:59 22:59 Other: # Voids 1 2 Weight 45.813 kg 83-year-old woman who is in no acute distress at this time HEENT: Anicteric conjunctiva are pink and moist nasal mucosa grossly intact without significant lesions, there is no thrush. Neck: The neck is supple without significant lymphadenopathy or thyromegaly. Lungs: There is symmetrical bilateral air entry there is crackles in the bilateral bases right greater than left expiratory wheezes are scattered with no cherri bronchial sounds being noted Heart: Regular rate and rhythm with an audible S1-S2, no S3 no S4. There is no significant murmur click or rub, PMI was nondisplaced. Abdomen: Positive bowel sounds soft and nontender without palpable masses or organomegaly. There was no guarding or rebound. Extremities: The upper extremities have excellent pulses they are symmetric, no significant petechiae or telangiectasia. No splinter hemorrhages were noted. The lower extremities are free from significant edema. The peripheral pulses were 2+ and symmetric. Neuro: Awake alert oriented to person place and time. There are no acute new gross focal sensory motor deficits. Results CBC & Chem 7: 02/02/19 06:49 02/02/19 06:49 Labs: Abnormal Lab Results - Last 24 Hours (Table) 02/02/19 02/02/19 Range/Units 06:49 06:49 WBC 13.5 H (3.8-10.6) k/uL Neutrophils # 9.4 H (1.3-7.7) k/uL BUN 33 H (7-17) mg/dL Laboratory Results WBC 13.5 k/uL (3.8-10.6) H 02/02/19 06:49 RBC 4.61 m/uL (3.80-5.40) 02/02/19 06:49 Hgb 14.3 gm/dL (11.4-16.0) 02/02/19 06:49 Hct 45.5 % (34.0-46.0) 02/02/19 06:49 MCV 98.7 fL (80.0-100.0) 02/02/19 06:49 MCH 31.0 pg (25.0-35.0) 02/02/19 06:49 MCHC 31.4 g/dL (31.0-37.0) 02/02/19 06:49 RDW 14.0 % (11.5-15.5) 02/02/19 06:49 Plt Count 323 k/uL (150-450) 02/02/19 06:49 Neutrophils % 70 % 02/02/19 06:49 Lymphocytes % 23 % 02/02/19 06:49 Monocytes % 5 % 02/02/19 06:49 Eosinophils % 2 % 02/02/19 06:49 Basophils % 0 % 02/02/19 06:49 Neutrophils # 9.4 k/uL (1.3-7.7) H 02/02/19 06:49 Lymphocytes # 3.1 k/uL (1.0-4.8) 02/02/19 06:49 Monocytes # 0.6 k/uL (0-1.0) 02/02/19 06:49 Eosinophils # 0.2 k/uL (0-0.7) 02/02/19 06:49 Basophils # 0.1 k/uL (0-0.2) 02/02/19 06:49 Sodium 139 mmol/L (137-145) 02/02/19 06:49 Potassium 4.5 mmol/L (3.5-5.1) 02/02/19 06:49 Chloride 106 mmol/L (98-107) 02/02/19 06:49 Carbon Dioxide 28 mmol/L (22-30) 02/02/19 06:49 Anion Gap 5 mmol/L 02/02/19 06:49 BUN 33 mg/dL (7-17) H 02/02/19 06:49 Creatinine 0.73 mg/dL (0.52-1.04) 02/02/19 06:49 Est GFR (CKD-EPI)AfAm 88 (>60 ml/min/1.73 sqM) 02/02/19 06:49 Est GFR (CKD-EPI)NonAf 76 (>60 ml/min/1.73 sqM) 02/02/19 06:49 Glucose 91 mg/dL (74-99) 02/02/19 06:49 Calcium 8.9 mg/dL (8.4-10.2) 02/02/19 06:49 Magnesium 2.0 mg/dL (1.6-2.3) 02/01/19 13:39 Total Bilirubin 0.9 mg/dL (0.2-1.3) 02/01/19 13:39 AST 43 U/L (14-36) H 02/01/19 13:39 ALT 43 U/L (9-52) 02/01/19 13:39 Alkaline Phosphatase 61 U/L (38-126) 02/01/19 13:39 Total Protein 6.8 g/dL (6.3-8.2) 02/01/19 13:39 Albumin 4.3 g/dL (3.5-5.0) 02/01/19 13:39 Urine Color Yellow 02/01/19 Unknown Urine Appearance Clear (Clear) 02/01/19 Unknown Urine pH 6.0 (5.0-8.0) 02/01/19 Unknown Ur Specific Buras 1.015 (1.001-1.035) 02/01/19 Unknown Urine Protein Negative (Negative) 02/01/19 Unknown Urine Glucose (UA) Negative (Negative) 02/01/19 Unknown Urine Ketones Negative (Negative) 02/01/19 Unknown Urine Blood Negative (Negative) 02/01/19 Unknown Urine Nitrite Negative (Negative) 02/01/19 Unknown Urine Bilirubin Negative (Negative) 02/01/19 Unknown Urine Urobilinogen <2.0 mg/dL (<2.0) 02/01/19 Unknown Ur Leukocyte Esterase Negative (Negative) 02/01/19 Unknown C. difficile (EIA) Intrp Negative (Negative) 02/02/19 07:19 Assessment and Plan (1) Weight loss Current Visit: Yes Status: Acute Code(s): R63.4 - ABNORMAL WEIGHT LOSS SNOMED Code(s): 20072448 (2) Diarrhea Narrative/Plan: 83-year-old female who has a recent hospital stay where she was having significant shortness of breath thought to be due to exacerbation of underlying COPD. Evidence of a large right pleural effusion was found and a thoracentesis was performed. She did develop hydro-pneumothorax and a chest tube was utilized. Eventually this was removed and she was feeling considerably better. There was concern for the acid-fast positive status of her fluid. However PCR testing was negative for Mycobacterium. Other acid-fast organisms were of concern and she was discharged home with trimethoprim program sulfamethoxazole until further data was available. The patient was intolerant of the trimethoprim sulfamethoxazole and it was discontinued the outpatient setting. The patient however continued to decline with decreasing appetite, increasing diarrhea increasing weakness and constantly was brought in the hospital. Fortunately C. difficile toxin status is negative in the oral vancomycin was added has been discontinued With rehydration she's feeling considerably better She is not having severe amounts of pain at this point in time Her shortness of breath is improved She has been seen by the oncologist and further workup is being done and likely will be discharged home soon. I have contacted the [facility] laboratory as well as a [facility] laboratory in the current report of isolation of acid- fast bacilli and culture is incorrect. There have been no reports of isolation of acid-fast bacilli. The positive AFB staining seen on the pleural fluid is actually likely related to the malignancy. She will not require antibiotic therapy at the time of her discharge. Current Visit: Yes Status: Acute Code(s): R19.7 - DIARRHEA, UNSPECIFIED SNOMED Code(s): 71855111 (3) COPD (chronic obstructive pulmonary disease) Current Visit: Yes Status: Acute Code(s): J44.9 - CHRONIC OBSTRUCTIVE PULMONARY DISEASE, UNSPECIFIED SNOMED Code(s): 62500154 (4) Metastatic adenocarcinoma Current Visit: Yes Status: Acute Code(s): C79.9 - SECONDARY MALIGNANT NEOPLASM OF UNSPECIFIED SITE SNOMED Code(s): 732244922
[2019-02-02] MEDS: SYMBICORT 160-4.5 MCG INHALER INHALATION SCH (19:35)
--- NOTE | 2019-02-03 06:58 | XR ---
EXAMINATION TYPE: XR chest 2V DATE OF EXAM: 02/03/2019 COMPARISON: 02/01/2019 INDICATION: Hydropneumothorax TECHNIQUE: Frontal and lateral views of the chest are obtained. FINDINGS: The heart size is normal. The pulmonary vasculature is normal. There is a small right apical pneumothorax, stable. Bilateral pleural effusions are present present p reviously.. Hyperinflation and increased AP diameter is present compatible COPD. IMPRESSION: 1. Stable appearing hydropneumothorax right apex. 2. Small bilateral pleural effusions, stable.
[2019-02-03 07:28] VITALS: RESP 15
[2019-02-03] MEDS: IPRATROPIUM-ALBUTEROL 3 ML NEB INHALATION SCH ×2 (08:06→13:00)
[2019-02-03] MEDS: SYMBICORT 160-4.5 MCG INHALER INHALATION SCH (08:07)
[2019-02-03] MEDS: ASPIRIN 81 MG PO SCH (08:31)
[2019-02-03] MEDS: LOSARTAN 50 MG TAB PO SCH (08:31)
[2019-02-03] MEDS: FUROSEMIDE 40 MG TAB PO SCH (08:31)
--- NOTE | 2019-02-03 10:15 | P.PN ---
Subjective Progress Note Date: 02/03/19 Principal diagnosis: Diarrhea, recent diagnosis of adenocarcinoma, [employer] origin In follow-up today patient has had no episodes of diarrhea this morning, denies abdominal pain, cramping, bloating, her breathing is stable and improved since thoracentesis, no return of symptoms. Objective - Vital Signs Vital signs: Vital Signs Temp 98.0 F 02/03/19 07:00 Pulse 56 L 02/03/19 08:19 Resp 15 02/03/19 08:05 BP 123/64 02/03/19 07:00 Pulse Ox 94 L 02/03/19 07:00 Intake & Output 02/02/19 02/03/19 02/03/19 18:59 06:59 18:59 Intake Total 100 160 Balance 100 160 Weight 45.813 kg Intake: Oral 100 160 Other: Voiding Method Toilet Toilet # Voids 2 1 - Constitutional General appearance: Present: cooperative, no acute distress, thin - EENT Eyes: Present: anicteric sclerae, EOMI ENT: Present: hard of hearing - Respiratory Details: Respirations are even and unlabored at rest Respiratory: right: diminished (base), bilateral: CTA - Cardiovascular Heart sounds: normal: S1, S2 - Peripheral edema leg Peripheral Edema: bilateral: None - Musculoskeletal Musculoskeletal: Present: generalized weakness, strength equal bilaterally - Psychiatric Psychiatric: Present: A&O x's 3, appropriate affect, intact judgment & insight - Labs CBC & Chem 7: 02/02/19 06:49 02/02/19 06:49 - Imaging and Cardiology CT scan - chest: report reviewed Assessment and Plan (1) Adenocarcinoma Narrative/Plan: Pleural fluid positive for adenocarcinoma, ovarian vs endometrial. CT AP revealed a right ovarian mass, no discussion of ascites or carcinamotosis. Ca [address] of the chest reviewed. Suspicious for pleural/right lung base studding/mass. Imaging and clinical presentation are most suggestive of an ovarian primary malignancy with disease spread to the lung. Discussed with patient and family at the bedside that this is unfortunately stage IV disease. Disease is treatable but, not curable. Most likely not a surgical situation. Discussed that standard of care is systemic treatment with either chemotherapy, immunotherapy or, if patient has an actionable mutation, non-chemo targeted agent. Requisition sent for NGS testing on malignant cells to see if there are any actionable mutations. Patient will be referred to [employer] oncology for surgical evaluation and opinion. No other questions or concerns. Current Visit: Yes Status: Acute Priority: High Code(s): C80.1 - MALIGNANT (PRIMARY) NEOPLASM, UNSPECIFIED SNOMED Code(s): 853874697 (2) Pleural effusion Narrative/Plan: Pt is doing very well s/p 100cc thoracentesis. No evidence to suggest recurrence at this time. Current Visit: No Status: Acute Priority: Low Code(s): J90 - PLEURAL EFFUSION, NOT ELSEWHERE CLASSIFIED SNOMED Code(s): 96316387 Plan: Encouraged pt to stay active. Pt ok from Heme/Onc standpoint to be discharged home. Will make Program Schedule Clerk Onc referral from office Doctor attests: I performed a history and physical examination of this patient, developed impression and plan of care. Discussed with dictator. I agree with dictators note, documented as a scribe.
--- NOTE | 2019-02-03 11:31 | P.PN ---
Subjective Progress Note Date: 02/03/19 Principal diagnosis: Right-sided hydropneumothorax, estimated at 20% This is a 83-year-old white female patient who was recently discharged from the hospital after being hospitalized for hypoxemic respiratory failure related to bilateral pleural effusions, status post right-sided thoracentesis and postprocedural pneumothorax requiring placement of a right-sided chest tube with subsequent reexpansion of the right lung. 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 Patient was supposed to follow up with medical oncology post discharge, however developed diarrhea at home, and was readmitted on oral 02/01/2019 with complaints of frequent diarrhea, weight loss, nausea, and lack of appetite, patient lost 11 pounds since discharge. She denied any difficulty breathing, denied any cough or congestion, no complaints of chest pain. Denied any fever or chills, denied any palpitations, denies any headaches, no lower extremity edema, no abdominal pain. She was discharged home on Bactrim for treatment of Mycobacterium avium. She was also discharged home on 3 L of oxygen. Past medical history is that of hypertension, COPD, normally not oxygen dependent, former history of smoking, patient carries a [id number] smoking history, in remission currently, osteoarthritis, anxiety, history of breast cancer with right-sided mastectomy. Lab work was positive for leukocytosis, increased since discharge, white blood cell count of 17.2, hemoglobin of 16.7, hematocrit increased at 52.1, likely related to dehydration, serum sodium was 139, potassium is 5.6, B1 is 40, creatinine is 0.96, urinalysis was negative, and C. diff was negative. Room air pulse ox is 94%, patient is afebrile, no hypotension, no altered mentation, no fever or chills, chest x-ray showed a right-sided hydropneumothorax, increased in size since previous admission, and blunting of the left costophrenic angle related to pleural effusion. Patient has been started on oral vancomycin and Lomotil, she is currently resting comfortably in bed, her diarrhea has improved since admission, she states she is still having some liquid dark stools, but the frequency has improved. On 02/03/2019 patient seen in follow-up on medical surgical floor. The diarrhea has significantly subsided, her last bowel movement was yesterday in the morning, no episodes of diarrhea since then. Still there is lack of appetite, but patient is trying to maintain her oral intake, looks less tired on today's exam, she is on 2 L of oxygen with a pulse ox of 94%, she is able to achieve 1500 on the incentive spirometer today. Denies any shortness of breath, denies any cough, denies any chest pain, she is afebrile, lung sounds are diminished at the bases, with a few scattered rales, no rhonchi, no wheezing. Today's repeat chest x-ray, showing stable appearing hydropneumothorax at the right apex, estimated to be added about 20%, and small bilateral pleural effusions, stable in size, yesterday's CT chest was reviewed showing right-sided hydropneumothorax and small to moderate pneumothorax at the right apex at 20%, moderate left pleural effusion, with adjacent atelectasis at both lung bases, and additional focal density at the medial right base that could represent area of atelectasis versus infiltrate. Denies any abdominal pain or cramping. No fever or chills, patient is awaiting to be evaluated by oncology. No new labs today, vital signs are stable. Objective - Vital Signs Vital signs: Vital Signs Temp 98.0 F 02/03/19 07:00 Pulse 56 L 02/03/19 08:19 Resp 15 02/03/19 08:05 BP 123/64 02/03/19 07:00 Pulse Ox 94 L 02/03/19 07:00 Intake & Output 02/02/19 02/03/19 02/03/19 18:59 06:59 18:59 Intake Total 100 160 Balance 100 160 Weight 45.813 kg Intake: Oral 100 160 Other: Voiding Method Toilet Toilet # Voids 2 1 - Exam GENERAL EXAM: Alert, pleasant, thin 83-year-old white female, on 2 L of oxygen the pulse ox of 94%, comfortable in no apparent distress. HEAD: Normocephalic/atraumatic. EYES: Normal reaction of pupils, equal size. Conjunctiva pink, sclera white. NOSE: Clear with pink turbinates. THROAT: No erythema or exudates. NECK: No masses, no JVD, no thyroid enlargement, no adenopathy. CHEST: No chest wall deformity. Symmetrical expansion. LUNGS: Equal air entry with diminished breath sounds at bilateral posterior bases, CVS: Regular rate and rhythm, normal S1 and S2, no gallops, no murmurs, no rubs ABDOMEN: Soft, nontender. No hepatosplenomegaly, normal bowel sounds, no guarding or rigidity. EXTREMITIES: No clubbing, no edema, no cyanosis, 2+ pulses and upper and lower extremities. MUSCULOSKELETAL: Muscle strength and tone normal. SPINE: No scoliosis or deformity SKIN: No rashes CENTRAL NERVOUS SYSTEM: Alert and oriented -3. No focal deficits, tone is normal in all 4 extremities. PSYCHIATRIC: Alert and oriented -3. Appropriate affect. Intact judgment and insight. - Labs CBC & Chem 7: 02/02/19 06:49 02/02/19 06:49 Assessment and Plan Plan: Assessment: #1. Acute diarrhea and dehydration, C. diff was negative #2. Right-sided hydropneumothorax, increased since previous admission, and left-sided pleural effusion, status post right-sided thoracentesis, with postprocedural right-sided pneumothorax, requiring chest tube placement and subsequent reexpansion of the right lung. Pleural fluid positive for metastatic adenocarcinoma with possible ovarian or endometrial primary #3. Recent diagnosis of metastatic adenocarcinoma with possible ovarian or endometrial primary #4. History of COPD, on oxygen since most recent admission #5. History of chronic congestive heart failure with diastolic dysfunction #6. Hypertension #7. Osteoarthritis #8. Former smoker #9. Anxiety #10. History of gastroesophageal reflux disease #11. History of breast cancer status post right-sided mastectomy Plan: CT chest done on 02/02/2019 and today's chest x-ray have been reviewed with Dr. Tracey, and patient was seen and evaluated by Dr. Tracey, and the pulmonary complaints, no shortness of breath, she is working on her incentive spirometer, diarrhea has subsided, C. diff was negative, or signs are stable, continue encouraging deep breathing and coughing, encouraged patient to sit up in the chair, we'll continue to follow I performed a history & physical examination of the patient and discussed their management with my nurse practitioner, Tuyet Menon. I reviewed the nurse practitioner's note and agree with the documented findings and plan of care. Lung sounds are positive for diminished breath sounds. The findings and the impression was discussed with the patient. I attest to the documentation by the nurse practitioner. Time with Patient: Less than 30
--- NOTE | 2019-02-03 11:45 | P.DS ---
Providers Date of admission: 02/01/19 18:12 Expected date of discharge: 02/03/19 Attending physician: Lg Heredia MD Consults: 02/01/19 18:12 Consult Physician Urgent Consulting Provider: Geronimo Fairbanks Consult Reason/Comments: Diarrhea Do you want consulting provider notified?: Yes Consult Physician Urgent Consulting Provider: Mariana Castrejon Consult Reason/Comments: adenocarcinoma Do you want consulting provider notified?: Yes 02/01/19 18:45 Consult Physician Stat Consulting Provider: Stan Wilkins Consult Reason/Comments: hydropneumothorax Do you want consulting provider notified?: Yes Primary care physician: Colt Fernandez [facility] Course: 83-year-old female with PMH of hypertension and COPD presents to the ED for diarrhea. Patient was recently discharged on 01/27/2019. She was seen for shortness of breath and difficulty breathing. She was initially diagnosed with COPD and acute diastolic CHF exacerbation. She was started on duo nebs, steroids and IV Lasix. Patient was also started on Rocephin and azithromycin for concerns of pneumonia. CTA of the chest was performed which ruled out PE but did show pleural effusion bilaterally. Pulmonology was consulted and thoracocentesis was performed. Patient developed a pneumothorax in the right side of the chest post thoracocentesis and chest tube had to be placed. 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 Patient was discharged on Bactrim for treatment of MAC. She was also discharged on 3 L home O2. Patient reports multiple episodes of diarrhea after returning home. Her diarrhea is associated with nausea but no vomiting. Daughter reports that the patient has went from 112 pounds to 101 pounds since her discharge. Daughter also reports that the patient was able to make an appointment with her PCP Dr. Fernandez who ordered a CA [address] of the abdomen and pelvis. Otherwise, patient denies any headache, lower extremity edema, fever or chills, chest pain, palpitations, changes in urination. She reports a decreased appetite. Patient also complains of a dry cough that has been ongoing since previous admission along with some minor shortness of breath. In the ED, vital signs were stable on 3 L O2. CBC showed a mild leukocytosis of 17.2. CMP showed potassium of 5.6, BUN of 40 and glucose of 133. Chest x-ray showed a right-sided hydropneumothorax. Infectious disease, oncology and pulmonology is consulted for possible C. diff and continued oncology workup. Patient's diarrhea progressively improved throughout her hospitalization. She was initially started on vancomycin for concerns of C. diff. C. diff was ruled out and vancomycin was discontinued. Infectious disease was consulted and involved in the care of this patient as well. With regard to her oncological workup, her PCP had ordered a CT of the abdomen and pelvis. CA-125 came back elevated at 2390. CT of the abdomen and pelvis showed a right ovarian mass. Oncology was consulted and recommended CT of the chest. CT of the chest showed right-sided hydropneumothorax, 20% pneumothorax, moderate left pleural effusion, focal density in the medial right base measuring 3.0 cm atelectasis versus infiltrate versus underlying mass. Patient was seen and examined prior to discharge. No acute events overnight. Patient states her diarrhea has resolved. She denies any chest pain, shortness of breath or palpitations. Continues to complain of poor appetite and also difficulty sleeping. Looking forward to going home. General: [non toxic], [no distress], [appears at stated age] Derm: [warm], [dry] Head: [atraumatic], [normocephalic], [symmetric] Eyes: [EOMI], [no lid lag], [anicteric sclera] Mouth: [no lip lesion], [mucus membranes moist] Cardiovascular: [S1S2 reg], [no murmur], [positive DP pulse bilateral], Lungs: [Decreased breath sounds bilateral], [no rhonchi, no rales] , [no accessory muscle use] Abdominal: [soft], [ nontender to palpation], [no guarding], [no appreciable organomegaly] Ext: [no gross muscle atrophy], [no edema], [no contractures] Neuro: [no focal neuro deficits] Psych: [Alert], [oriented], [appropriate affect] Assessment and Plan Diarrhea with history of recent antibiotic use, rule out Clostridium difficile 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 difficile negative. Plans: DC Vancomycin. Lomotil as needed. Follow ID recommendations. As seen on pleural fluid cytology on previous admission. Right ovarian mass seen on CT. CA [address] chest shows right-sided hydropneumothorax, 20% pneumothorax, moderate left pleural effusion, focal density in the right medial base measuring 3 cm atelectasis versus infiltrate versus underlying mass. Plans: Follow oncology recommendations. Patient elects to be full code at this time pending further oncology workup. As seen on chest x-ray. Likely from previous admission. Plans: O2 per NC to maintain O2 saturation greater than 92%. Continue Symbicort. DuoNeb every 4 hours scheduled and as needed for shortness of breath. Follow pulmonology recommendations. Potassium 5.6-within normal limits. Patient takes potassium supplementation at home. Plans: DC supplementation. Repeat BMP tomorrow morning. Resolved. BUN 40-33. Likely secondary to dehydration. Plans: Continue normal saline at 100 mL per hour. Stable. Plans: DuoNeb as needed for shortness of breath and wheezing. BP 123/64. Plans: Continue losartan. Monitor vitals, adjust medications as necessary. [Discussed with Dr. Davis, biochemical markers ordered on pleural fluid cytology which is pending at the time of discharge. She should have an appointment with gynecology oncology to rule out surgical options. She will need to follow-up with oncology in the outpatient setting for treatment options when biochemical markers return. DC today. Previously discharged with 3 L home O2.] Pertinent Studies: Chest x-ray, chest CT Patient Condition at Discharge: Stable Plan - Discharge Summary Discharge Rx Participant: No New Discharge Prescriptions: New Diphenox-Atrop 2.5-0.025 mg [Lomotil] 2 each PO Q6HR PRN #12 tab PRN Reason: Diarrhea Mirtazapine [Remeron] 15 mg PO HS #30 tab Ondansetron Odt [Zofran Odt] 4 mg PO Q12HR PRN 6 Days tab PRN Reason: Nausea Continue Losartan [Cozaar] 50 mg PO DAILY Aspirin 162 mg PO DAILY Umeclidinium Brm/Vilanterol Tr [Anoro Ellipta 62.5-25 Mcg INH] 1 puff INHALATION RT-DAILY Multivitamins, Thera [Multivitamin (formulary)] 1 tab PO DAILY Furosemide [Lasix] 40 mg PO DAILY #30 tab Albuterol Inhaler [Ventolin Hfa Inhaler] 1 - 2 puff INHALATION RT-Q6H PRN #1 inhaler PRN Reason: difficulty breathing/cough Budesonide-Formot 160-4.5 Mcg [Symbicort 160-4.5 Mcg Inhaler] 2 puff INHALATION RT-BID Discontinued Potassium Chloride ER [K-Dur 20] 40 meq PO DAILY #30 tab.er.prt predniSONE See Taper PO DAILY Discharge Medication List Aspirin 162 mg PO DAILY 11/05/13 [History] Losartan [Cozaar] 50 mg PO DAILY 11/05/13 [History] Multivitamins, Thera [Multivitamin (formulary)] 1 tab PO DAILY 01/21/19 [History] Umeclidinium Brm/Vilanterol Tr [Anoro Ellipta 62.5-25 Mcg INH] 1 puff INHALATION RT-DAILY 01/21/19 [History] Albuterol Inhaler [Ventolin Hfa Inhaler] 1 - 2 puff INHALATION RT-Q6H PRN #1 inhaler 01/27/19 [Rx] Furosemide [Lasix] 40 mg PO DAILY #30 tab 01/27/19 [Rx] Budesonide-Formot 160-4.5 Mcg [Symbicort 160-4.5 Mcg Inhaler] 2 puff INHALATION RT-BID 02/01/19 [History] Diphenox-Atrop 2.5-0.025 mg [Lomotil] 2 each PO Q6HR PRN #12 tab 02/03/19 [Rx] Mirtazapine [Remeron] 15 mg PO HS #30 tab 02/03/19 [Rx] Ondansetron Odt [Zofran Odt] 4 mg PO Q12HR PRN 6 Days tab 02/03/19 [Rx] Follow up Appointment(s)/Referral(s): Colt Fernandez MD [Primary Care Provider] - 1-2 days [facility], [NON-STAFF] - Anselmo Davis MD [STAFF PHYSICIAN] - 1 Week Activity/Diet/Wound Care/Special Instructions: Diet: Regular with Ensure supplementation Follow-up with PCP within 3 days of discharge. Follow-up with oncology within 1 week of discharge. You'll need to see gynecology oncologist. Please make sure to schedule that appointment. Please take all medications as advised. Discharge Disposition: HOME SELF-CARE
[2019-02-03 14:38] VITALS: BP 105/61; PULSE 95; TEMP 97.5
--- NOTE | 2019-02-04 06:50 | CDI ---
Documentation Clarification Form Date: 02/04/19 From: Suresh Dominguez Phone: call [phone] Admit Date: 02/01/2019 6:12:00 PM Patient Name: Micheline Cleary Visit Number: [id number] Discharge Date: 02/03/2019 3:21:00 PM ATTENTION: The Clinical Documentation Specialists (CDI) and [facility] Staff appreciate your assistance in clarifying documentation. Please respond to the clarification below the line at the bottom and electronically sign. The CDI & [facility] staff will review the response and follow-up if needed. Please note: Queries are made part of the Legal Health Record. If you have any questions, please contact the author of this message via ITS. Dr. Lg Duffnam The patients principal diagnosis has not been clearly identified and requires clarification. She presented with the diarrhea. History/Risk factors:ovarian carcinoma,chf, pneumothorax Treatment: IV fluids and conservative treatment. Patient recently hospitalized for COPD, CHF and also pneumothorax In Discharge summary and progress notes mentioned as " Diarrhea with recent antibiotic use". In your professional opinion, can you please clarify which diagnosis responsible for the admission? Diarrhea unspecified Diarrhea due to antibiotic use Other,Please specify Unable to determine. due to antibiotic use MTDD
== END 2019-02-03 15:21 | disposition home health service (06) | DRG 394 ==
LOC: EC 12:18 → 4SSUR 18:12
PROVIDERS: ADMIT Family Medicine; ATTEND Family Medicine
DX: K52.1 Toxic gastroenteritis and colitis (principal); J94.8 Other specified pleural conditions; I50.32 Chronic diastolic (congestive) heart failure; J93.9 Pneumothorax, unspecified; C56.1 Malignant neoplasm of right ovary; E87.5 Hyperkalemia; I11.0 Hypertensive heart disease with heart failure; E86.0 Dehydration; T36.95XA Adverse effect of unspecified systemic antibiotic, initial encounter; F41.9 Anxiety disorder, unspecified; I49.3 Ventricular premature depolarization; J43.9 Emphysema, unspecified; K21.9 Gastro-esophageal reflux disease without esophagitis; M19.90 Unspecified osteoarthritis, unspecified site; Z79.51 Long term (current) use of inhaled steroids; Z79.82 Long term (current) use of aspirin; Z79.899 Other long term (current) drug therapy; Z85.3 Personal history of malignant neoplasm of breast; Z87.891 Personal history of nicotine dependence; Z99.81 Dependence on supplemental oxygen; Z90.49 Acquired absence of other specified parts of digestive tract; Z90.89 Acquired absence of other organs; Z98.51 Tubal ligation status; Z80.9 Family history of malignant neoplasm, unspecified
CPT/HCPCS: 36415; 71046; 71260; 80048; 80053; 81003; 83735; 85025; 87324; 93005; 94640; 94760; 96360; 96361; 99285

== ENCOUNTER 2019-02-25 11:27 | Inpatient (IN) | payer MEDICARE, OTHER ==
[2019-02-25] MEDS ORDERED: NALOXONE 0.4 MG/ML 1 ML VIAL IV PRN (15:08)
[2019-02-25] MEDS ORDERED: ACETAMINOPHEN TAB 325 MG TAB PO PRN (15:08)
[2019-02-25] MEDS ORDERED: ONDANSETRON 4 MG/2 ML VIAL IVP PRN (15:08)
--- NOTE | 2019-02-25 15:43 | XR ---
EXAMINATION TYPE: XR chest 2V DATE OF EXAM: 02/25/2019 COMPARISON: Chest CT February 02, 2019. Two view chest xray 3 days ago and older x-rays HISTORY: History of ovarian cancer with dyspnea. TECHNIQUE: Frontal and lateral views of the chest are obtained. FINDINGS: There is persistent moderate size left pleural effusion. There is persistent small right- sided hydropneumothorax. Background chronic emphysematous change. Associated bibasilar acute atelecta sis and/or infiltrate. No mediastinal shift. The heart borders are both silhouetted. Exaggerated thor acic kyphosis is present with suspected several mild compression type fracture deformities. IMPRESSION: Overall stable size of the pleural fluid collections from most recent x-ray, background c hronic emphysematous change with moderate size left pleural effusion and small sized right-sided hydr opneumothorax remaining present. Increasing bibasilar acute atelectasis and/or infiltrate is noted.
[2019-02-25 16:12] LABS: Basophils # (A) 0.1 k/uL (0-0.2); Basophils % (A) 1 %; Eosinophils # (A) 0.1 k/uL (0-0.7); Eosinophils % (A) 1 %; HCT 47.7 % (34.0-46.0); HGB 15.3 gm/dL (11.4-16.0); Lymphocytes % (A) 17 %; MCH 31.4 pg (25.0-35.0); MCHC 32.1 g/dL (31.0-37.0); MCV 97.8 fL (80.0-100.0); Monocytes # (A) 0.9 k/uL (0-1.0); Monocytes % (A) 8 %; Neutrophils # (A) 8.1 k/uL (1.3-7.7); Neutrophils % (A) 71 %; Platelet Count 394 k/uL (150-450); RBC 4.88 m/uL (3.80-5.40); RDW 12.9 % (11.5-15.5); WBC 11.4 k/uL (3.8-10.6)
[2019-02-25 16:20] LABS: Albumin 3.5 g/dL (3.5-5.0); Calcium 10.1 mg/dL (8.4-10.2); Total Bilirubin 0.6 mg/dL (0.2-1.3); Total Protein 5.9 g/dL (6.3-8.2)
--- NOTE | 2019-02-25 16:26 | P.HPIM ---
History of Present Illness H&P Date: 02/25/19 Chief Complaint: Shortness of breath 83-year-old female with PMH of hypertension and COPD, history of pleural effusion post thoracentesis complicated by pneumothorax presents the ED for worsening shortness of breath. Patient was sent as a direct admit from her PCP Dr. Fernandez. Patient was initially seen on 01/21/2019 for shortness of breath. CTA of the chest was performed at that time which ruled out PE but did show pleural effusion bilaterally. Pulmonology was consulted and thoracocentesis was performed. Patient developed a pneumothorax in the right side of the chest post thoracocentesis and chest tube had to be placed. 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 Patient was discharged on 3 L home O2. She presented once again on 02/01/2019 for diarrhea associated with nausea and poor appetite. There was some concerns for C. diff at that time and she was initially started on vancomycin. C. difficile was ruled out and patient progressively improved to the point she was able to be discharged. She had a CT abdomen and pelvis ordered by her PCP which showed a right ovarian mass. CA-125 came back elevated at 2390. CT of the chest was performed during her second admission which showed a right-sided hydropneumothorax, 20%. There was also a focal density measuring 3 cm atelectasis versus infiltrate versus underlying mass which was seen. Patient was discharged to be seen by [employer] oncology at [facility]. Patient reports progressively worsening shortness of breath since then. Her daughter reports poor appetite. Patient denies any headaches, lower extremity edema, vomiting, fever or chills, chest pain, palpitations, changes in urination or bowel habits. She denies any dizziness, numbness/weakness/tingling of the extremities. She does report a cough and was dry until a couple of days ago when it became productive of clear sputum. Patient reports seeing her pu lmonologist Dr. Thayer and chest x-ray showed left-sided pleural effusion. Patient is admitted for shortness of breath, likely recurring pleural effusions associated with malignancy. Daughter reports that patient has been so weak that they have not followed up with gynecology at [facility]. They would like to stay here and see oncology Dr. Davis. Patient's vital signs are relatively stable except for O2 saturation of 93% that was held on 2 L nasal cannula. Review of Systems Pertinent positives and negatives as discussed in HPI, a complete review of systems was performed and all other systems are negative. Past Medical History Past Medical History: Cancer, COPD, Hyperlipidemia, Hypertension, Osteoarthritis (OA) Additional Past Medical History / Comment(s): Pt admitted to [facility] on 01/27/19 with SOB/COPD, concerns for pneumonia and ct of chest showed bilateral pleural effusions-had thoracentesis with pneumothorax and chest tube insertion. Cytology came back positive for metastatic adenocarcinoma. Pt admitted to [facility] on with diarrhea-negative for Cdiff, decresed weight-cat scan of abdomin showed R ovarian mass, had elevated CA-125,R sided hydropneumothorax with 20% pneumo/moderate L pleural effusion and R medial base density. Other HX: PVCs, bronchitis, arthritis in multiple joints, osteoporosis, past compression fracture L1. 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 Past Anesthesia/Blood Transfusion Reactions: No Reported Reaction Smoking Status: Former smoker - Past Family History Sister(s) Family Medical History: Cancer Father Family Medical History: COPD Additional Family Medical History / Comment(s): Father at age 60yrs from COPD Mother Additional Family Medical History / Comment(s): Mother at the age o 91 yrs. She had osteoporosis. Medications and Allergies Home Medications Medication Instructions Recorded Confirmed Type Aspirin 162 mg PO DAILY 11/05/13 02/25/19 History Losartan [Cozaar] 50 mg PO DAILY 11/05/13 02/25/19 History Multivitamins, Thera [Multivitamin 1 tab PO DAILY 01/21/19 02/25/19 History (formulary)] Budesonide-Formot 160-4.5 Mcg 2 puff INHALATION RT-BID 02/01/19 02/25/19 History [Symbicort 160-4.5 Mcg Inhaler] ALPRAZolam [Xanax] 0.5 mg PO HS 02/25/19 02/25/19 History Allergies Allergy/AdvReac Type Severity Reaction Status Date / Time No Known Allergies Allergy Verified 02/25/19 14:13 Physical Exam Vitals: Vital Signs Temp Pulse Resp BP Pulse Ox 02/25/19 13:35 20 02/25/19 12:29 97.6 F 81 16 148/66 93 L Intake and Output 02/25/19 02/25/19 02/25/19 06:59 14:59 22:59 Intake Total 120 Balance 120 Intake: Oral 120 Other: # Voids 2 2 Weight 47.5 kg General: [non toxic], [no distress], [appears at stated age] Derm: [warm], [dry] Head: [atraumatic], [normocephalic], [symmetric] Eyes: [EOMI], [no lid lag], [anicteric sclera] Mouth: [no lip lesion], [mucus membranes moist] Cardiovascular: [S1S2 reg], [no murmur], [positive posterior tibial pulse bilateral], Lungs: [CTA bilateral with decreased breath sounds at the bases left greater than right], [no rhonchi, no rales] , [no accessory muscle use] Abdominal: [soft], [ nontender to palpation], [no guarding], [no appreciable organomegaly] Ext: [no gross muscle atrophy], [no edema], [no contractures] Neuro: [ CN II-XI grossly intact], [no focal neuro deficits] Psych: [Alert], [oriented], [appropriate affect] Results CBC & Chem 7: 02/25/19 15:49 Thrombosis Risk Factor Assmnt - Choose All That Apply Any of the Below Risk Factors Present?: Yes Each Factor Represents 1 point: Abnormal pulmonary function (COPD) Other Risk Factors: Yes Each Risk Factor Represents 2 Points: Malignancy Each Risk Factor Represents 3 Points: Age 75 years or older Other congenital or acquired thrombophilia - If yes, enter type in comment: No Thrombosis Risk Factor Assessment Total Risk Factor Score: 6 Thrombosis Risk Factor Assessment Level: High Risk Assessment and Plan Assessment: Acute on chronic respiratory failure likely secondary to recurrent pleural effusion Biopsy-proven metastatic adenocarcinoma likely source of ovarian or endometrial COPD Hypertension Insomnia Plans: Stat chest x-ray ordered. Chest ultrasound ordered. O2 per NC to maintain O2 saturation greater than 92%. Albuterol as needed for shortness of breath. Follow pulmonology consultation. As seen on pleural fluid cytology on previous admission. CT abdomen and pelvis showing ovarian mass. CT chest showing recurrent hydropneumothorax, focal density atelectasis versus infiltrate versus mass of 3 cm. Plans: Follow oncology recommendations. As seen on chest x-ray. Likely from previous admission. Plans: O2 per NC to ma intain O2 saturation greater than 92%. Optimize COPD medications. Follow pulmonology recommendations. Stable. Plans: Albuterol neb as needed for shortness of breath and wheezing. BP 148/66. Plans: Continue losartan. Monitor vitals, adjust medications as necessary. Plans: Xanax as needed at bedtime. DVT prophylaxis: [SCD boots] Discussed with: [Patient and daughter] Anticipated discharge: [1-2 days] Anticipated discharge place: [Home] A total of [45] minutes was spent on the care of this complex patient more than 50% of the time was spent in counseling and care coordination. Patient elects to be no code at this time. Patient names her daughter Yamila decision maker indicates that she can't make decisions for herself. Her daughter's phone number is [phone].
[2019-02-25 16:32] LABS: INR 0.9 (<1.2); Partial Thromboplastin Time 23.4 sec (22.0-30.0); Prothrombin Time 10.1 sec (9.0-12.0)
--- NOTE | 2019-02-25 16:37 | US ---
EXAMINATION TYPE: US chest DATE OF EXAM: 02/25/2019 COMPARISON: CT & X rays CLINICAL HISTORY: Markings for thoracentesis by pulmonary staff. TECHNIQUE: Targeted ultrasound of the posterior lower bilateral hemithoraces EXAM MEASUREMENTS: Right Pleural Effusion pocket size: 8.3 cm Right skin surface to fluid distance: 1.2 cm Left Pleural Effusion pocket size: 7.9 cm Left skin surface to fluid distance: 1.0 cm Right side marked for possible thoracentesis outside the dept. Left side marked for possible thoracentesis outside the dept. Pulmonologists are able to review the images in the patient?s EMR. IMPRESSIONS: Bilateral pleural effusions are demonstrated.
[2019-02-25] MEDS: ALBUTEROL NEBULIZED 2.5 MG/3 ML INHALATION PRN ×2 (17:31→20:18)
[2019-02-25] MEDS: ALPRAZolam 0.5 MG TAB PO SCH (20:29)
[2019-02-26] MEDS: LOSARTAN 50 MG TAB PO SCH (08:10)
[2019-02-26] MEDS: MULTIVITAMINS, THERA 1 EACH TAB PO SCH (08:10)
[2019-02-26] MEDS: PANTOPRAZOLE 40 MG TABLET PO SCH (08:10)
[2019-02-26] MEDS ORDERED: ASPIRIN 81 MG PO SCH (09:00)
--- NOTE | 2019-02-26 09:04 | P.PN ---
Subjective Progress Note Date: 02/26/19 Principal diagnosis: Shortness of breath Patient was seen and examined. No acute events overnight. Patient reports no improvement in her breathing since yesterday. She is currently on 2 L nasal cannula saturating 92%. Patient denies any chest pain or palpitations. No nausea or vomiting. No fever or chills. Objective - Vital Signs Vital signs: Vital Signs Temp 97.7 F 02/26/19 04:55 Pulse 59 L 02/26/19 04:55 Resp 18 02/26/19 04:55 BP 122/58 02/26/19 04:55 Pulse Ox 93 L 02/26/19 04:55 Intake & Output 02/25/19 02/26/19 02/26/19 18:59 06:59 18:59 Intake Total 120 240 Balance 120 240 Weight 47.5 kg Intake: Oral 120 240 Other: # Voids 2 1 - Exam General: [non toxic], [no distress], [appears at stated age] Derm: [warm], [dry] Head: [atraumatic], [normocephalic], [symmetric] Eyes: [no lid lag], [anicteric sclera] Cardiovascular: [S1S2 reg], [no murmur], [positive DP pulse bilateral] Lungs: [Decreased breath sounds at the bases left greater than right], [no rhonchi, no rales] , [no accessory muscle use] Ext: [no gross muscle atrophy], [no edema], [no contractures] Neuro: [no focal neuro deficits] Psych: [Alert], [oriented], [appropriate affect] - Labs CBC & Chem 7: 02/25/19 15:49 02/25/19 15:49 Labs: Abnormal Lab Results - Last 24 Hours (Table) 02/25/19 02/25/19 Range/Units 15:49 15:49 WBC 11.4 H (3.8-10.6) k/uL Hct 47.7 H (34.0-46.0) % Neutrophils # 8.1 H (1.3-7.7) k/uL BUN 21 H (7-17) mg/dL AST 46 H (14-36) U/L Alkaline Phosphatase 156 H (38-126) U/L Total Protein 5.9 L (6.3-8.2) g/dL Assessment and Plan Assessment: Acute on chronic respiratory failure likely secondary to recurrent pleural eff usion 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 Chest ultrasound performed, area marked for thoracentesis. Plans: O2 per NC to maintain O2 saturation greater than 92%. Albuterol neb as needed for shortness of breath. Follow pulmonology consultation. As seen on pleural fluid cytology on previous admission. CT abdomen and pelvis showing ovarian mass. CT chest showing recurrent hydropneumothorax, focal density atelectasis versus infiltrate versus mass of 3 cm. Plans: Follow oncology recommendations. Leukocytosis of 11.4. Likely reactive, no signs of infection. Patient is afebrile. Plans: Continue to monitor. Daily CBC. Elevated BUN of 21. Likely due to dehydration. Plans: Encourage hydration by mouth. Daily BMP. As seen on chest x-ray. Plans: O2 per NC to maintain O2 saturation greater than 92%. Albuterol neb as needed for shortness of breath and wheezing. Follow pulmonology recommendations. BP 122/58. Plans: Continue losartan. Monitor vitals, adjust medications as necessary. Plans: Xanax as needed at bedtime. [Plans for thoracentesis today by pulmonology. Oncology consultation pending. Likely DC in 1-2 days.]
[2019-02-26] MEDS: ALBUTEROL NEBULIZED 2.5 MG/3 ML INHALATION PRN ×2 (09:08→13:24)
--- NOTE | 2019-02-26 10:41 | P.CNPUL ---
History of Present Illness Consult date: 02/26/19 Requesting physician: Lg Heredia Reason for consult: dyspnea, pleural effusion Chief complaint: Shortness of breath History of present illness: This is a 83-year-old white female patient of Dr. 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 And the diagnosis was made from the cytology of the pleural fluid drained from the right-sided pleural effusion on 01/22/2019. Patient then came in with bilateral pleural effusions, but unfortunately sustained a post procedural pneumothorax requiring chest tube placement. Patient did successfully recovered from that episode she was hospitalized again more recently for diarrhea, right-sided hydropneumothorax, and left-sided pleural effusion, however in view of her stable pulmonary status no repeat thoracentesis was done. Patient was in the process of referral to gynecologic oncology at [facility], she does follow with Dr. Davis. Has not started treatment for her cancer yet related to recurrent hospitalizations, overall general weakness, weight loss, and overall declining functional status, intermittent shortness of breath. On 02/25/2019 patient came in as a direct admission from Dr. Fernandez's office for evaluation of her worsening shortness of breath. Chest x-ray was obtained showing overall stable size pleural fluid collection bilaterally, left greater than right and small sized right-sided hydropneumothorax. Increasing bibasilar atelectasis/infiltrate. As denied fever or chills, denied any cough or congestion, denied any chest pain. No hemoptysis. She has actually gained 4 pounds since her last discharge according to the patient. No further diarrhea. Ultrasound of the chest showed right pleural effusion pocket of 8.3 cm, and left pleural effusion pocket of 7.9 cm. Lab work shows white blood cell count of 11.4, hemoglobin of 15.3, coagulation profile was within normal limits, electrolytes were within normal limits, BUN of 21 creatinine 0.72. Patient's O2 sat is 92% on 2 L, she is afebrile, hemodynamically stable. We're consulted in regards to possibility of bilateral thoracentesis Review of Systems All systems: negative Constitutional: Denies chills, Denies fever Eyes: denies blurred vision, denies pain Ears, nose, mouth and throat: Denies headache, Denies sore throat Cardiovascular: Denies chest pain, Denies shortness of breath Respiratory: Reports dyspnea, Reports home oxygen, Denies cough Gastrointestinal: Reports loss of appetite, Denies abdominal pain, Denies diarrhea, Denies nausea, Denies vomiting Genitourinary: Denies dysuria, Denies hematuria Musculoskeletal: Denies myalgias Integumentary: Denies pruritus, Denies rash Neurological: Denies numbness, Denies weakness Psychiatric: Denies anxiety, Denies depression Endocrine: Denies fatigue, Denies weight change Past Medical History Past Medical History: Cancer, COPD, Hyperlipidemia, Hypertension, Osteoarthritis (OA) Additional Past Medical History / Comment(s): Pt admitted to [facility] on 01/27/19 with SOB/COPD, concerns for pneumonia and ct of chest showed bilateral pleural effusions-had thoracentesis with pneumothorax and chest tube insertion. Cytology came back positive for metastatic adenocarcinoma. Pt admitted to [facility] on with diarrhea-negative for Cdiff, decresed weight-cat scan of abdomin showed R ovarian mass, had elevated CA-125,R sided hydropneumothorax with 20% pneumo/moderate L pleural effusion and R medial base density. Other HX: PVCs, bronchitis, arthritis in multiple joints, osteoporosis, past compression fracture L1. 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 Past Anesthesia/Blood Transfusion Reactions: No Reported Reaction Smoking Status: Former smoker - Past Family History Sister(s) Family Medical History: Cancer Father Family Medical History: COPD Additional Family Medical History / Comment(s): Father at age 60yrs from COPD Mother Additional Family Medical History / Comment(s): Mother at the age o 91 yrs. She had osteoporosis. Medications and Allergies Home Medications Medication Instructions Recorded Confirmed Type Aspirin 162 mg PO DAILY 11/05/13 02/25/19 History Losartan [Cozaar] 50 mg PO DAILY 11/05/13 02/25/19 History Multivitamins, Thera [Multivitamin 1 tab PO DAILY 01/21/19 02/25/19 History (formulary)] Budesonide-Formot 160-4.5 Mcg 2 puff INHALATION RT-BID 02/01/19 02/25/19 History [Symbicort 160-4.5 Mcg Inhaler] ALPRAZolam [Xanax] 0.5 mg PO HS 02/25/19 02/25/19 History Allergies Allergy/AdvReac Type Severity Reaction Status Date / Time No Known Allergies Allergy Verified 02/25/19 14:13 Physical Exam Vitals: Vital Signs Temp Pulse Pulse Resp BP Pulse Ox 02/26/19 09:19 47 L 02/26/19 09:08 47 L 92 L 02/26/19 08:00 59 L 18 02/26/19 04:55 97.7 F 59 L 18 122/58 93 L 02/25/19 23:14 18 02/25/19 21:00 97.5 F L 62 18 97/51 93 L 02/25/19 20:29 78 02/25/19 20:18 78 02/25/19 17:43 80 02/25/19 17:31 80 02/25/19 16:00 81 20 02/25/19 13:35 20 02/25/19 12:29 97.6 F 81 16 148/66 93 L Intake and Output 02/25/19 02/26/19 02/26/19 22:59 06:59 14:59 Intake Total 240 Balance 240 Intake: Oral 240 Other: # Voids 1 1 GENERAL EXAM: Alert, very pleasant, cachectic 83-year-old white female, on 2 L of oxygen with a pulse ox of 92%, comfortable in no apparent distress. HEAD: Normocephalic/atraumatic. EYES: Normal reaction of pupils, equal size. Conjunctiva pink, sclera white. NOSE: Clear with pink turbinates. THROAT: No erythema or exudates. NECK: No masses, no JVD, no thyroid enlargement, no adenopathy. CHEST: No chest wall deformity. Symmetrical expansion. LUNGS: Diminished breath sounds at bilateral bases, left greater than right, with dullness to percussion with no crackles, wheeze, rhonchi CVS: Regular rate and rhythm, normal S1 and S2, no gallops, no murmurs, no rubs ABDOMEN: Soft, nontender. No hepatosplenomegaly, normal bowel sounds, no guarding or rigidity. EXTREMITIES: No clubbing, no edema, no cyanosis, 2+ pulses and upper and lower extremities. MUSCULOSKELETAL: Muscle strength and tone normal. SPINE: No scoliosis or deformity SKIN: No rashes CENTRAL NERVOUS SYSTEM: Alert and oriented -3. No focal deficits, tone is normal in all 4 extremities. PSYCHIATRIC: Alert and oriented -3. Appropriate affect. Intact judgment and insight. Results - Laboratory Findings CBC and BMP: 02/25/19 15:49 02/25/19 15:49 PT/INR, D-dimer PT 10.1 sec (9.0-12.0) 02/25/19 15:49 INR 0.9 (<1.2) 02/25/19 15:49 Abnormal lab findings: Abnormal Labs 02/25/19 09 15:49 15:49 WBC 11.4 H Hct 47.7 H Neutrophils # 8.1 H BUN 21 H AST 46 H Alkaline Phosphatase 156 H Total Protein 5.9 L - Diagnostic Findings Chest x-ray: report reviewed, image reviewed Additional studies: Ultrasound of the chest reviewed Assessment and Plan Plan: Assessment: #1. Dyspnea related to left greater than right malignant pleural effusions #2. Recent diagnosis of metastatic adenocarcinoma with possible ovarian or endometrial primary #3. Recent hospitalization for shortness of breath related to bilateral pleural effusions, status post right-sided thoracentesis with postprocedural pneumothorax requiring chest tube placement #4. Recent hospitalization for diarrhea and weakness #5. History of COPD on oxygen #6. Chronic congestive heart failure with diastolic dysfunction #7. Hypertension #8. Osteoarthritis #9. Former smoker #10. Exact day #11. History of GERD/reflux #12. History of breast cancer status post right-sided mastectomy Plan: Chest x-ray and ultrasound and chest have been reviewed with Dr. Marina. In view of recent complications related to postprocedural pneumothorax requiring chest tube placement after right-sided thoracentesis, we feel the patient would be better served having ultrasound-guided thoracentesis by interventional radiology. This was discussed with the patient and she does agree with the plan as she herself has a lot of anxiety in regards to another potential pneumothorax. Patient has not started treatment for her metastatic cancer, she has a meeting with the medical oncology Dr. Davis this afternoon to discuss further plan of treatment, however it does sound as if the patient and her family may not pursue treatment in view of her overall general weakness, recurrent hospitalizations, shortness of breath. We will follow closely. I performed a history & physical examination of the patient and discussed their management with my nurse practitioner, Tuyet Menon. I reviewed the nurse practitioner's note and agree with the documented findings and plan of care. Nancy ng sounds are positive for diminished breath sounds at the bases. The findings and the impression was discussed with the patient. I attest to the documentation by the nurse practitioner. Time with Patient: Greater than 30
[2019-02-26 12:39] VITALS: BMI 19.1
--- NOTE | 2019-02-26 14:51 | P.CONS ---
History of Present Illness - Reason for Consult Consult date: 02/26/19 Ovarian ca, SOB, weakness - History of Present Illness Ms. Cleary is an 83 year old female initially seen in consult on 02/02/19, admitted for diarrhea, which had started after discharge about 1.5 weeks ago. It was persistent, associated with wt. loss . Her visit 2 weeks prior was for progressive SOB, started in Jun 2018, no associated symptoms reported other then fatigue. She had a right thoracentesis 01/22/[address] Gtz with 100cc pl fluid removed, cytology positive for adenocarcinoma ovarian vs endometrial origin. She had CT AP , showing a right ovarian mass is noted, bilateral small pleural effusions with suspicion for pleural/pulm mets. The patient was seen in consult at that time, and advised that findings likely represented stage IV disease with pleural involvement. She was referred to [facility] at [facility]. She has an appointment next week, but since her discharge has been declining. The family had called the office and stated that the patient had been pr ogressively more short of breath. She had also been complaining of decreased appetite, loss of taste, as well as intermittent abdominal pain and nausea. They felt that she was too weak to be able to make it to her appointment with [facility] oncology at [facility]. She was therefore advised admission for further evaluation. Consult was placed for further evaluation and recommendations Review of Systems Constitutional: Reports fatigue, Reports poor appetite, Reports weakness, Reports weight loss Eyes: denies blurred vision, denies pain Ears: deny: decreased hearing, ear discharge, earache, tinnitus Ears, nose, mouth and throat: Denies headache, Denies sore throat Cardiovascular: Reports shortness of breath Respiratory: Reports dyspnea Gastrointestinal: Reports abdominal pain, Reports diarrhea, Reports nausea Genitourinary: Denies dysuria, Denies hematuria Menstruation: Reports postmenopausal Musculoskeletal: Reports muscle weakness Integumentary: Denies pruritus, Denies rash Neurological: Reports weakness Psychiatric: Denies anxiety, Denies depression Endocrine: Reports fatigue, Reports weight change Hematologic/Lymphatic: Reports as per HPI Past Medical History Past Medical History: Cancer, COPD, Hyperlipidemia, Hypertension, Osteoarthritis (OA) Additional Past Medical History / Comment(s): Pt admitted to [facility] on 01/27/19 with SOB/COPD, concerns for pneumonia and ct of chest showed bilateral pleural effusions-had thoracentesis with pneumothorax and chest tube insertion. Cytology came back positive for metastatic adenocarcinoma. Pt admitted to [facility] on with diarrhea-negative for Cdiff, decresed weight-cat scan of abdomin showed R ovarian mass, had elevated CA-125,R sided hydropneumothorax with 20% pneumo/moderate L pleural effusion and R medial base density. Other HX: PVCs, bronchitis, arthritis in multiple joints, osteoporosis, past compression fracture L1. 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 Past Anesthesia/Blood Transfusion Reactions: No Reported Reaction Smoking Status: Former smoker - Past Family History Sister(s) Family Medical History: Cancer Father Family Medical History: COPD Additional Family Medical History / Comment(s): Father at age 60yrs from COPD Mother Additional Family Medical History / Comment(s): Mother at the age o 91 yrs. She had osteoporosis. Medications and Allergies Home Medications Medication Instructions Recorded Confirmed Type Aspirin 162 mg PO DAILY 11/05/13 02/25/19 History Losartan [Cozaar] 50 mg PO DAILY 11/05/13 02/25/19 History Multivitamins, Thera [Multivitamin 1 tab PO DAILY 01/21/19 02/25/19 History (formulary)] Budesonide-Formot 160-4.5 Mcg 2 puff INHALATION RT-BID 02/01/19 02/25/19 History [Symbicort 160-4.5 Mcg Inhaler] ALPRAZolam [Xanax] 0.5 mg PO HS 02/25/19 02/25/19 History Allergies Allergy/AdvReac Type Severity Reaction Status Date / Time No Known Allergies Allergy Verified 02/25/19 14:13 Physical Exam Vitals: Vital Signs Temp Pulse Pulse Resp BP Pulse Ox 02/26/19 09:19 47 L 02/26/19 09:08 47 L 92 L 02/26/19 08:00 59 L 18 02/26/19 04:55 97.7 F 59 L 18 122/58 93 L 02/25/19 23:14 18 02/25/19 21:00 97.5 F L 62 18 97/51 93 L 02/25/19 20:29 78 02/25/19 20:18 78 02/25/19 17:43 80 02/25/19 17:31 80 02/25/19 16:00 81 20 02/25/19 13:35 20 02/25/19 12:29 97.6 F 81 16 148/66 93 L Intake and Output 02/25/19 02/26/19 02/26/19 22:59 06:59 14:59 Intake Total 240 Balance 240 Intake: Oral 240 Other: # Voids 1 1 - Constitutional General appearance: mild distress - EENT Eyes: EOMI, PERRLA ENT: hearing grossly normal, normal oropharynx - Neck Neck: no lymphadenopathy - Respiratory Respiratory: bilateral: diminished (left greater than right) - Cardiovascular Rhythm: regular Heart sounds: normal: S1, S2 - Gastrointestinal General gastrointestinal: normal bowel sounds, soft - Integumentary Integumentary: normal - Neurologic Neurologic: CNII-XII intact - Musculoskeletal Musculoskeletal: generalized weakness, strength equal bilaterally - Psychiatric Psychiatric: A&O x's 3, appropriate affect Results CBC & Chem 7: 02/25/19 15:49 02/25/19 15:49 Labs: Abnormal Lab Results - Last 24 Hours (Table) 02/25/19 02/25/19 Range/Units 15:49 15:49 WBC 11.4 H (3.8-10.6) k/uL Hct 47.7 H (34.0-46.0) % Neutrophils # 8.1 H (1.3-7.7) k/uL BUN 21 H (7-17) mg/dL AST 46 H (14-36) U/L Alkaline Phosphatase 156 H (38-126) U/L Total Protein 5.9 L (6.3-8.2) g/dL Chest x-ray: report reviewed Assessment and Plan (1) Adenocarcinoma Narrative/Plan: The patient has recent diagnosis of Adenocarcinoma primary endometrial or ovarian origin. Ovarian origin is felt to be most likely based on radiologic findings. The patient appeared to have stage IV disease at time of diagnosis with malignant pleural effusion, that appeared to indicate primary pleural involvement (given nodular appearance of the pleura on imaging, as well as lack of significant ascites). She was referred to Dr. Hart for [facility] oncology consu ltation. It was felt that most likely her treatment would be chemotherapy in the first line. The patient however has been clinically declining and is felt that she would not be able to make it to her appointment to [facility] onc[facility]. Due to progressive symptoms she has been admitted. On evaluation it appears that she has recurrence of pleural effusion. She may benefit from thoracentesis. There does not appear to be significant ascites. I again discussed with her that in her situation the standard of care would likely be upfront correlation chemotherapy. However given her age and poor performance status she would be at significantly increased risk of side effects, that could potentially shorter life expectancy and worsen symptoms. Assuming that she has 2 stage IV disease which appears likely, the chemotherapy would not be curative but rather palliative in intent. Comfort care was also discussed At this time the patient feels inclined to "try something" but expresses understanding that combination chemotherapy, which would be the treatment most likely to benefit her, would also carry substantial risks. She would like to discuss this further with her family and also have been made with them. We will schedule this later this afternoon. Case discussed in detail with the admitting service, and her PCP. Current Visit: No Status: Acute Priority: High Code(s): C80.1 - MALIGNANT (PRIMARY) NEOPLASM, UNSPECIFIED SNOMED Code(s): 168051707 (2) Pleural effusion Narrative/Plan: The patient has worsening shortness of breath, and what appears to be recurrent pleural effusions will now more on the left compared to the right. We will await pulmonary evaluation to see if she could benefit symptomatically from thoracentesis. Current Visit: Yes Status: Acute Priority: Low Code(s): J90 - PLEURAL EFFU FROYLAN, NOT ELSEWHERE CLASSIFIED SNOMED Code(s): 37666060 Plan: Defer to the admitting service and other consultants for management of her other medical problems
--- NOTE | 2019-02-26 16:03 | US ---
EXAMINATION TYPE: US thoracentesis DATE OF EXAM: 02/26/2019 COMPARISON: Ultrasound 02/25/2019 HISTORY: Pleural effusion. FINDINGS: Maximal barrier technique was utilized. The skin overlying a suitable pocket of fluid was localized at the posterior lateral left chest and the overlying skin prepped and draped. Lidocaine w as used for local anesthesia. Ultrasound was used with sterile technique. A 5 K[place] catheter over g uide needle was advanced into the pleural fluid collection using ultrasound guidance and the needle r emoved, catheter advanced. Approximately 1.8 liter(s) of sanguinous fluid was removed. Catheter was withdrawn and hemostasis achieved. There is no immediate complication. The patient discharged in s table condition without complication. IMPRESSION: STATUS POST ULTRASOUND GUIDED THORACENTESIS, POST PROCEDURE CHEST X-RAY PENDING. THIS OK OCEDURE WAS PERFORMED BY THE UNDERSIGNED. Specimen submitted for laboratory analysis.
--- NOTE | 2019-02-26 16:08 | XR ---
EXAMINATION TYPE: XR chest 1V portable DATE OF EXAM: 02/26/2019 CLINICAL HISTORY: Left-sided thoracentesis. Pleural effusion. History of ovarian cancer. TECHNIQUE: Single AP portable upright view of the chest is obtained. COMPARISON: Chest x-ray from one day earlier FINDINGS: There is improved left-sided effusion after thoracentesis. Persistent bibasilar opacities consistent with small bilateral pleural effusions and associated atelectasis and/or infiltrate. Suspe ct stable right apical pneumothorax with persistent visualization of prominent edge. Cardiac silhouet te size is upper limits of normal. Improved visualization of left heart border noted. Atherosclerotic thoracic aorta. Osseous structures are intact. IMPRESSION: Improved left-sided effusion after thoracentesis. No new pneumothorax.
[2019-02-26] MEDS: HYDROcodone/APAP 5-325MG 1 EACH TAB PO PRN (18:41)
[2019-02-26] MEDS: ALPRAZolam 0.5 MG TAB PO SCH (20:53)
[2019-02-27 00:24] LABS: Total Protein, Body Fluid 3310 mg/dL
[2019-02-27 00:44] LABS: Glucose, BF Source Pleural Fluid; Glucose, Body Fluid 125 mg/dL
--- NOTE | 2019-02-27 08:22 | XR ---
EXAMINATION TYPE: XR chest 1V DATE OF EXAM: 02/27/2019 HISTORY: s/p thoracentesis, sob. REFERENCE: Previous study dated 02/26/2019. FINDINGS: Residual right-sided pneumothorax is not identified. There are bilateral effusions. There i s bibasilar airspace disease. Heart size is upper limits of normal. IMPRESSION: 1. RESOLUTION OF THE PATIENT'S RIGHT-SIDED PNEUMOTHORAX. 2. BILATERAL EFFUSIONS. 3. BIBASILAR AIRSPACE DISEASE.
--- NOTE | 2019-02-27 09:02 | P.DS ---
Providers Date of admission: 02/25/19 11:56 Expected date of discharge: 02/27/19 Attending physician: Lg Heredia MD Consults: 02/25/19 15:17 Consult Physician Routine Consulting Provider: Ezekiel Marina Consult Reason/Comments: pleural effusion Do you want consulting provider notified?: Yes 02/25/19 16:23 Consult Physician Routine Consulting Provider: Anselmo Davis Consult Reason/Comments: Oncology workup Do you want consulting provider notified?: Yes Primary care physician: Colt Fernandez [facility] Course: 83-year-old female with PMH of hypertension and COPD, history of pleural effusion post thoracentesis complicated by pneumothorax presents the ED for worsening shortness of breath. Patient was sent as a direct admit from her PCP Dr. Fernandez. Patient was initially seen on 01/21/2019 for shortness of breath. CTA of the chest was performed at that time which ruled out PE but did show pleural effusion bilaterally. Pulmonology was consulted and thoracocentesis was performed. Patient developed a pneumothorax in the right side of the chest post thoracocentesis and chest tube had to be placed. 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 Patient was discharged on 3 L home O2. She presented once again on 02/01/2019 for diarrhea associated with nausea and poor appetite. There was some concerns for C. diff at that time and she was initially started on vancomycin. C. difficile was ruled out and patient progressively improved to the point she was able to be discharged. She had a CT abdomen and pelvis ordered by her PCP which showed a right ovarian mass. CA-125 came back elevated at 2390. CT of the chest was performed during her second admission which showed a right-sided hydropneumothorax, 20%. There was also a focal density measuring 3 cm atelectasis versus infiltrate versus underlying mass which was seen. Patient was discharged to be seen by [facility] oncology at [facility]. Patient reports progressively worsening shortness of breath since then. Her daughter reports poor appetite. Patient denies any headaches, lower extremity edema, vomiting, fever or chills, chest pain, palpitations, changes in urination or bowel habits. She denies any dizziness, numbness/weakness/tingling of the extremities. She does report a cough and was dry until a couple of days ago when it became productive of clear sputum. Patient reports seeing her benefits clerk Dr. Thayer and chest x-ray showed left-sided pleural effusion. Patient is admitted for shortness of breath, likely recurring pleural effusions associated with malignancy. Daughter reports that patient has been so weak that they have not followed up with gynecology at [facility]. They would like to stay here and see oncology Dr. Davis. Patient underwent repeat chest x-ray which showed stable size of pleural fluid collection, background emphysematous changes, moderate left pleural effusion and small right-sided hydropneumothorax. Chest ultrasound was done and site was marked for possible thoracentesis. Pulmonology was consulted and recommended IR consultation has fluid appeared loculated. Patient underwent thoracentesis of the left side on 02/26/2019. Oncology was consulted and treatment options were discussed with family, thought to be palliative rather than curative chemotherapy. Patient expressed the possibility of wanting to try something knowing that she could progressively decline. Patient was seen and examined. No acute events overnight. Patient reports considerable improvement in her breathing since admission. She denies any chest pain, shortness of breath or palpitations. Complains of localized pain at the site of incision. No nausea or vomiting. No fever or chills. Still undecided about chemotherapy. General: [non toxic], [no distress], [appears at stated age] Derm: [warm], [dry] Head: [atraumatic], [normocephalic], [symmetric] Eyes: [no lid lag], [anicteric sclera] Cardiovascular: [S1S2 reg], [no murmur], [positive DP pulse bilateral] Lungs: [Decreased breath sounds at the bases with good air entry], [no rhonchi, no rales] , [no accessory muscle use] Ext: [no gross muscle atrophy], [no edema], [no contractures] Neuro: [no focal neuro deficits] Psych: [Alert], [oriented], [appropriate affect] Acute on chronic respiratory failure likely secondary to recurrent pleural effusion 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 Chest ultrasound performed, area marked for thoracentesis. Post thoracocentesis by interventional radiology. Plans: O2 per NC to maintain O2 saturation greater than 92%. Albuterol neb as needed for shortness of breath. Follow pulmonology consultation. Follow pleural fluid culture. As seen on pleural fluid cytology on previous admission. CT abdomen and pelvis showing ovarian mass. CT chest showing recurrent hydropneumothorax, focal density atelectasis versus infiltrate versus mass of 3 cm. Plans: Follow oncology recommendations. Leukocytosis of 11.4. Likely reactive, no signs of infection. Patient is afebrile. Plans: Continue to monitor. Elevated BUN of 21. Likely due to dehydration. Plans: Encourage hydration by mouth. As seen on chest x-ray. Plans: O2 per NC to maintain O2 saturation greater than 92%. Albuterol neb as needed for shortness of breath and wheezing. Follow pulmonology recommendations. BP 107/58. Plans: Continue losartan. Monitor vitals, adjust medications as necessary. Plans: Xanax as needed at bedtime. [Patient's breathing is improved considerably since admission. Plans on DC today. Will decide chemotherapy at home and follow-up with oncology in the outpatient setting. Will discuss with daughter prior to discharge. Repeat CBC and BMP in 3 days. Follow-up PCP within 1-2 days. Follow-up pulmonology within 1 week. Follow-up oncology within 1 week.] Pertinent Studies: Chest x-ray, chest ultrasound Procedures: Thoracentesis left-sided Patient Condition at Discharge: Stable Plan - Discharge Summary Discharge Rx Participant: No New Discharge Prescriptions: Continue Losartan [Cozaar] 50 mg PO DAILY Aspirin 162 mg PO DAILY Multivitamins, Thera [Multivitamin (formulary)] 1 tab PO DAILY Budesonide-Formot 160-4.5 Mcg [Symbicort 160-4.5 Mcg Inhaler] 2 puff INHALATION RT-BID ALPRAZolam [Xanax] 0.5 mg PO HS Discharge Medication List Aspirin 162 mg PO DAILY 11/05/13 [History] Losartan [Cozaar] 50 mg PO DAILY 11/05/13 [History] Multivitamins, Thera [Multivitamin (formulary)] 1 tab PO DAILY 01/21/19 [History] Budesonide-Formot 160-4.5 Mcg [Symbicort 160-4.5 Mcg Inhaler] 2 puff INHALATION RT-BID 02/01/19 [History] ALPRAZolam [Xanax] 0.5 mg PO HS 02/25/19 [History] Follow up Appointment(s)/Referral(s): Anselmo Davis MD [STAFF PHYSICIAN] - 1 Week Colt Fernandez MD [Primary Care Provider] - 1-2 Days Sadia Thayer MD [STAFF PHYSICIAN] - 1 Week Ambulatory/Diagnostic Orders: Complete Blood Count w/diff [LAB.AMB] Time Frame: 3 Days, Location: None Selected Comprehensive Metabolic Panel [LAB.AMB] Time Frame: 3 Days, Location: None Selected Activity/Diet/Wound Care/Special Instructions: pt will be sent home with a wheelchair s/t weakness, and completion of ADLs. Diet: Regular Follow-up PCP within 1-2 days of discharge. Follow-up with oncology within 1 week of discharge. Follow-up with pulmonology within 1 week of discharge. Discharge Disposition: HOME SELF-CARE
[2019-02-27] MEDS: LOSARTAN 50 MG TAB PO SCH (09:44)
[2019-02-27] MEDS: PANTOPRAZOLE 40 MG TABLET PO SCH (09:44)
[2019-02-27] MEDS: MULTIVITAMINS, THERA 1 EACH TAB PO SCH (09:44)
[2019-02-27] MEDS: HYDROcodone/APAP 5-325MG 1 EACH TAB PO PRN (09:44)
[2019-02-27 12:55] VITALS: BP 99/60; PULSE 46; RESP 15; TEMP 97.4
--- NOTE | 2019-02-27 13:37 | P.PN ---
Subjective Progress Note Date: 02/27/19 Principal diagnosis: Shortness of breath secondary to recurrent pleural effusion. This is a 83-year-old white female patient of Dr. 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 And the diagnosis was made from the cytology of the pleural fluid drained from the right-sided pleural effusion on 01/22/2019. Patient then came in with bilateral pleural effusions, but unfortunately sustained a post procedural pneumothorax requiring chest tube placement. Patient did successfully recovered from that episode she was hospitalized again more recently for diarrhea, right-sided hydropneumothorax, and left-sided pleural effusion, however in view of her stable pulmonary status no repeat thoracentesis was done. Patient was in the process of referral to gynecologic oncology at [facility], she does follow with Dr. Davis. Has not started treatment for her cancer yet related to recurrent hospitalizations, overall general weakness, weight loss, and overall declining functional status, intermittent shortness of breath. On 02/25/2019 patient came in as a direct admission from Dr. Fernandez's office for evaluation of her worsening shortness of breath. Chest x-ray was obtained showing overall stable size pleural fluid collection bilaterally, left greater than right and small sized right-sided hydropneumothorax. Increasing bibasilar atelectasis/infiltrate. As denied fever or chills, denied any cough or congestion, denied any chest pain. No hemoptysis. She has actually gained 4 pounds since her last discharge according to the patient. No further diarrhea. Ultrasound of the chest showed right pleural effusion pocket of 8.3 cm, and left pleural effusion pocket of 7.9 cm. Lab work shows white blood cell count of 11.4, hemoglobin of 15.3, coagulation profile was within normal limits, electrolytes were within normal limits, BUN of 21 creatinine 0.72. Patient's O2 sat is 92% on 2 L, she is afebrile, hemodynamically stable. We're consulted in regards to possibility of bilateral thoracentesis. The patient is seen today 02/27/2019 in follow-up on the regular medical floor. She is awake and alert in no acute distress. Breathing easier today as compared to yesterday. She did undergo a left-sided ultrasound-guided thoracentesis by interventional radiology. 1.8 L of fluid was removed. Follow-up chest x-ray reveals resolution of the right-sided pneumothorax and near complete resolution of left-sided pleural effusion. She is anxious to go home. Objective - Vital Signs Vital signs: Vital Signs Temp 97.4 F L 02/27/19 12:26 Pulse 46 L 02/27/19 12:26 Resp 15 02/27/19 12:26 BP 99/60 02/27/19 12:26 Pulse Ox 95 02/27/19 12:26 Intake & Output 02/26/19 02/27/19 02/27/19 18:59 06:59 18:59 Intake Total 1080 200 Balance 1080 200 Weight 47.5 kg Intake: Oral 1080 200 Other: Voiding Method Toilet Toilet # Voids 2 1 - Exam GENERAL EXAM: Alert, very pleasant, cachectic 83-year-old white female, on 3 L of oxygen with a pulse ox of 95%, comfortable in no apparent distress. HEAD: Normocephalic/atraumatic. EYES: Normal reaction of pupils, equal size. Conjunctiva pink, sclera white. NOSE: Clear with pink turbinates. THROAT: No erythema or exudates. NECK: No masses, no JVD, no thyroid enlargement, no adenopathy. CHEST: No chest wall deformity. Symmetrical expansion. LUNGS: Diminished breath sounds at bilateral bases, with no crackles, wheeze, rhonchi CVS: Regular rate and rhythm, normal S1 and S2, no gallops, no murmurs, no rubs ABDOMEN: Soft, nontender. No hepatosplenomegaly, normal bowel sounds, no guarding or rigidity. EXTREMITIES: No clubbing, no edema, no cyanosis, 2+ pulses and upper and lower extremities. MUSCULOSKELETAL: Muscle strength and tone normal. SPINE: No scoliosis or deformity SKIN: No rashes CENTRAL NERVOUS SYSTEM: No focal deficits, tone is normal in all 4 extremities. PSYCHIATRIC: Alert and oriented -3. Appropriate affect. Intact judgment and insight. - Labs CBC & Chem 7: 02/25/19 15:49 02/25/19 15:49 Labs: Microbiology - Last 24 Hours (Table) 02/26/19 16:00 Gram Stain - Preliminary Pleural Fluid Body Fluid Culture - Preliminary 02/26/19 16:00 Acid Fast Bacilli Culture - Preliminary Pleural Fluid Assessment and Plan Assessment: Assessment: #1. Dyspnea related to left greater than right malignant pleural effusions #2. Recent diagnosis of metastatic adenocarcinoma with possible ovarian or endometrial primary #3. Recent hospitalization for shortness of breath related to bilateral pleural effusions, status post right-sided thoracentesis with postprocedural pneumothorax requiring chest tube placement #4. Recent hospitalization for diarrhea and weakness #5. History of COPD on oxygen #6. Chronic congestive heart failure with diastolic dysfunction #7. Hypertension #8. Osteoarthritis #9. Former smoker #10. Exact day #11. History of GERD/reflux #12. History of breast cancer status post right-sided mastectomy Plan: The patient was seen and evaluated by Dr. Marina. Chest x-ray reviewed. Near complete resolution of the left-sided pleural effusion. Resolution of the right-sided pneumothorax. She is cleared for discharge from the pulmonary standpoint. She'll follow up with Dr. Thayer in our office in 1-2 weeks' time. She has home oxygen. She and her family are encouraged to call sooner with any recurrence of symptoms or other questions or concerns. I, the cosigning physician, performed a history & physical examination of the patient. Lungs sounds managed in the bilateral posterior bases. Maintaining good O2 saturations in the 90s on 3 L/m per nasal cannula.. I discussed the assessment and plan of care with my nurse practitioner, Cherri Ozuna. I attest to the above note as dictated by her.
--- NOTE | 2019-02-27 23:51 | P.PN ---
Subjective Progress Note Date: 02/27/19 The patient is status post 1.8 L drainage on thoracentesis. Her breathing feels easier. She still remains fairly weak. Appetite is persistently diminished. No fever/chills/vomiting. Objective - Vital Signs Vital signs: Vital Signs Temp 97.4 F L 02/27/19 12:26 Pulse 46 L 02/27/19 12:26 Resp 15 02/27/19 12:26 BP 99/60 02/27/19 12:26 Pulse Ox 95 02/27/19 12:26 Intake & Output 02/27/19 02/27/19 02/28/19 06:59 18:59 06:59 Intake Total 200 Balance 200 Intake: Oral 200 Other: Voiding Method Toilet Toilet # Voids 1 - Constitutional General appearance: Present: no acute distress - EENT Eyes: Present: EOMI ENT: Present: hearing grossly normal, normal oropharynx - Respiratory Respiratory: bilateral: diminished (Left greater than right) - Cardiovascular Rhythm: regular Heart sounds: normal: S1, S2 - Gastrointestinal General gastrointestinal: Present: normal bowel sounds, soft - Neurologic Neurologic: Present: CNII-XII intact - Musculoskeletal Musculoskeletal: Present: generalized weakness, strength equal bilaterally - Psychiatric Psychiatric: Present: A&O x's 3, appropriate affect, intact judgment & insight - Labs CBC & Chem 7: 02/25/19 15:49 02/25/19 15:49 Labs: Microbiology - Last 24 Hours (Table) 02/26/19 16:00 Acid Fast Bacilli Smear - Final Pleural Fluid Acid Fast Bacilli Culture - Preliminary 02/26/19 16:00 Gram Stain - Preliminary Pleural Fluid Body Fluid Culture - Preliminary Assessment and Plan (1) Adenocarcinoma Narrative/Plan: The patient feels somewhat better symptomatically after thoracentesis. I again discussed prognosis and management options. She was advised that standard treatment options in this case, with optimal chances of response, as well as response within a short period of time to achieve symptomatic benefit would be combination chemotherapy. However risks of adverse events with chemotherapy would be higher than usual in this patient, due to her current performance status, as well as fairly rapid decline in a short period of time. Possible adverse reactions, as well as benefits of treatment were discussed The patient still remains undecided about active treatment versus comfort care. Services provided during hospice were discussed. She was also advised that she could start treatment , but stop it at any point and switch to comfort care depending on tolerance. She has already had a detailed discussion with her family. She would like to consider her options further, as well as have further discussion with her family before making a final decision She was advised that if she is feeling symptomatically better she could be discharged home, which she definitely wants. She can then contact the office early next week with her decision. Appropriate management orders will then be placed. Status: Acute Priority: High Code(s): C80.1 - MALIGNANT (PRIMARY) NEOPLASM, UNSPECIFIED SNOMED Code(s): 995267389 (2) Pleural effusion Narrative/Plan: Status post-1.8 L of drainage. The patient feels symptomatically better. She was advised that from the oncology standpoint she could be discharged home if she is feeling better, if okay with the admitting service and pulmonary medicine Status: Acute Priority: Low Code(s): J90 - PLEURAL EFFUSION, NOT ELSEWHERE CLASSIFIED SNOMED Code(s): 66853219
== END 2019-02-27 13:30 | disposition home or self-care (01) | DRG 754 ==
LOC: 3NMEDONC 11:56
PROVIDERS: ADMIT Family Medicine; ATTEND Family Medicine
PROC: 0W9B3ZX Drainage of Left Pleural Cavity, Percutaneous Approach, Diagnostic (ICD-10-PCS; principal; 2019-02-26)
DX: C56.9 Malignant neoplasm of unspecified ovary (principal); J96.20 Acute and chronic respiratory failure, unspecified whether with hypoxia or hypercapnia; J91.0 Malignant pleural effusion; I50.32 Chronic diastolic (congestive) heart failure; J94.8 Other specified pleural conditions; J98.11 Atelectasis; D72.829 Elevated white blood cell count, unspecified; E78.5 Hyperlipidemia, unspecified; E86.0 Dehydration; G47.00 Insomnia, unspecified; I11.0 Hypertensive heart disease with heart failure; J44.9 Chronic obstructive pulmonary disease, unspecified; K21.9 Gastro-esophageal reflux disease without esophagitis; M15.9 Polyosteoarthritis, unspecified; M81.0 Age-related osteoporosis without current pathological fracture; Z79.51 Long term (current) use of inhaled steroids; Z79.82 Long term (current) use of aspirin; Z79.899 Other long term (current) drug therapy; Z82.5 Family history of asthma and other chronic lower respiratory diseases; Z82.62 Family history of osteoporosis; Z85.3 Personal history of malignant neoplasm of breast; Z87.891 Personal history of nicotine dependence; Z99.81 Dependence on supplemental oxygen; R94.4 Abnormal results of kidney function studies; Z80.9 Family history of malignant neoplasm, unspecified
CPT/HCPCS: 32555; 71045; 71046; 76604; 80053; 82945; 83615; 84157; 85025; 85610; 85730; 87070; 87116; 87205; 87206; 94640; 94760